=== PATIENT | female | born 1995 | race Caucasian/White ===

== ENCOUNTER 2023-05-12 14:07 | Emergency (ER) | payer SELFPAY ==
[2023-05-12 14:06] VITALS: BP 122/85; PULSE 96; RESP 14; TEMP 37.2; O2SAT 98
--- NOTE | 2023-05-12 15:00 | DI.CT_ITS ---
Exam(s) CT BRAIN NECK CTA EXAM: CT BRAIN NECK CTA CLINICAL HISTORY: Seizure, syncope. TECHNIQUE: Imaging Protocol: Axial CT angiography was performed with multi-slice acquisition and mu lti-planar and/or 3D reconstructions. CONTRAST MATERIAL: Intravenous: Omnipaque 350 Contrast volume:structured data in ml COMPARISON: No exams were available for comparison FINDINGS: CTA Neck W: Aortic arch anatomy: The aortic arch anatomy is conventional and there is no significant stenosis at the origin of the great vessels off of the aortic arch. No intimal flap evident. Anterior circulation: Both common carotid arteries ascend with normal luminal diameters. At the level the carotid bulbs and proximal internal carotid arteries there is minimal plaque without hemodynamically significant stenosis evident. Posterior circulation: Both vertebral arteries originate in conventional fashion off of the subclavian arteries and there is no obvious stenosis at the origin of the vertebral arteries. Both vertebral arteries exhibit normal luminal diameters within the foramen transversarium. No evidence of intraluminal thrombus, stenosis, nor dissection of the vertebral arteries. Both vertebral arteries contribute to the formation of the basilar artery at the skull base. CTA Brain W: Anterior circulation: Both internal carotid arteries are patent in the skull base-carotid canals as well as within the cave rnous sinuses. The supraclinoid aspects of the ICAs are patent. Both A1 segments are patent as are the anterior cer ebral arteries and there is no evidence of aneurysm at the level of the anterior communicating artery . Both middle cerebral arteries are patent with no evidence of significant stenosis nor intraluminal th rombus. There also no aneurysms of these vessels. Posterior circulation: The basilar artery ascends in the midline. Distally it gives off patent bilateral superior cerebella r arteries. Above this level the basilar artery terminates as patent bilateral posterior cerebral arteries. There is no evidence of aneurysm at the tip of the basilar artery nor elsewhere in the [id number] is. CT BRAIN: There is no evidence of intracranial hemorrhage, mass effect, or shift of midline structures. There are no extra-axial fluid collections. Ventricles are not enlarged or shifted. There are no ring enh ancing lesions in the brain and no abnormal meningeal enhancement. IMPRESSION: 1. Patent carotid arteries in the neck. No hemodynamically significant stenosis. 2. Patent vertebral arteries. 3. Patent intracranial arteries. 4. No acute intracranial findings. No ring enhancing lesions in the brain. No abnormal meningeal en hancement. RADIATION DOSE DELIVERED: 1,731.39mGy.cm Total DLP DATA REPOSITORY: All CT scans at this facility are submitted to the National Radiology Data Registry (NRDR) Dose Index Registry (DIR) with the [employer] (ACR). RADIATION OPTIMIZATION: All CT scans at this facility use at least one of these dose optimization te chniques: automated exposure control; mA and/or kV adjustment per patient size (includes targeted exa ms where dose is matched to clinical indication); or iterative reconstruction.
[2023-05-12 15:04] LABS: Bilirubin Negative (Negative); Blood Negative (Negative); Clarity Clear (Clear); Glucose Negative (Negative); Ketones >=160 mg/dL (Negative); Leukocyte Esterase Negative (Negative); Nitrite Negative (Negative); Specific Gravity >= 1.030 (1.005-1.025); Urobilinogen 0.2 mg/dL (Up to 0.2)
[2023-05-12 15:10] LABS: Bacteria Negative HPF (Negative); C & S Indicated? No; Casts Negative LPF (Negative); Crystals Negative HPF (Negative); Epithelial Cells Few HPF (Negative); Mucus Trace (Negative); RBC 0-2 HPF (0-2)
[2023-05-12 15:16] LABS: *AMPHETAMINES SCREEN URINE Positive (Negative); *BARBITURATES SCREEN URINE Negative (Negative); *BENZODIAZEPINES SCREEN URINE Negative (Negative); Cannabinoids THC Positive (Negative); Cocaine Screen,Urine Negative (Negative); METHADONE URINE SCREEN Negative (Negative); OPIATES URINE SCREEN Negative (Negative); Tricyclic Antidepressants Negative (Negative)
[2023-05-12 15:19] LABS: Lactate 1.3 mmol/L (0.6-1.4)
[2023-05-12 15:23] LABS: Abs Immature Grans 0.02 10^3/uL (0.0-0.06); Absolute Basophil Count 0.03 10^3/uL (0.0-0.2); Absolute Eosinophil Count 0.01 10^3/uL (0.0-0.7); Absolute Lymphocyte Count 2.18 10^3/uL (1.2-3.4); Absolute Monocyte Count 0.56 10^3/uL (0.1-0.8); Absolute Neutrophil Count 6.42 10^3/uL (1.2-6.7); Basophils % 0.3; Eosinophils % 0.1; HCT 35.9 % (36.0-46.0); HGB 12.8 g/dL (11.2-15.7); Immature Grans % 0.2; Lymphocytes % 23.6; MCHC 35.7 % (32.0-36.0); MCV 87 fL (80-95); Monocytes % 6.1; Neutrophils % 69.7; Platelet Count 339 10^3/uL (130-400); RBC 4.13 10^6/uL (3.93-5.22); RDW-SD 41.1 fL; WBC 9.22 10^3/uL (4.4-10.8)
[2023-05-12 15:27] VITALS: PULSE 97; RESP 13
[2023-05-12] MEDS: Lactated Ringers 1,000 ML 1000 ML IV (15:32)
[2023-05-12 15:34] LABS: INR 1.2 (0.9-1.1); PTT Activated 26.5 sec (23.6-32.8); Prothrombin Time 11.5 sec (9.1-11.1)
[2023-05-12 15:40] LABS: Ammonia 27 umol/L (11-32)
[2023-05-12] MEDS: Normal Saline - Diluent 50 ML VIAL IJ (15:48)
[2023-05-12] MEDS: Omnipaque 350 MG/ML 100 ML BTL IJ (15:49)
[2023-05-12 15:53] LABS: ALT 28 U/L (14-59); AST 34 U/L (15-37); Albumin 4.3 g/dL (3.4-5.0); Alkaline Phosphatase 44 U/L (46-116); Anion Gap 10.9 mmol/L (3-11); BUN 11 mg/dL (7-18); Bilirubin, Total 1.2 mg/dL (0.2-1.0); CO2 25.1 mmol/L (21.0-32.0); CREATININE 0.6 mg/dL (0.55-1.02); Calcium 9.3 mg/dL (8.5-10.1); Chloride 100 mmol/L (98-107); Estimated GFR 126.87 (mL/min/1.73m2); Glucose 95 mg/dL (74-106); Lipase 19 U/L (16-77); Magnesium 1.8 mg/dL (1.8-2.4); Potassium 3.5 mmol/L (3.5-5.1); Sodium 136 mmol/L (136-145); Total Protein 7.5 g/dL (6.4-8.2)
[2023-05-12 15:54] LABS: ETHANOL BLOOD < 3.0 mg/dL (<10)
[2023-05-12 16:00] VITALS: PULSE 98; RESP 11
[2023-05-12] MEDS: hydrOXYzine HCL 25 MG TAB PO (16:03)
--- NOTE | 2023-05-12 16:13 | DI.VRAD_ITS ---
PROCEDURE INFORMATION: Exam: CTA Head With Contrast, Arteriography Exam date and time: 05/12/2023 3:47 PM Age: 27 years old Clinical indication: Syncope and collapse and other: Seizure, TECHNIQUE: Imaging protocol: Computed tomographic angiography of the head with contrast. Exam focused on the arteries. 3D rendering (Not supervised by radiologist): MIP and/or 3D reconstructed images were created by the technologist. Contrast material: 350; Contrast volume: 100 ml; Contrast route: INTRAVENOUS (IV); COMPARISON: No relevant prior studies available. FINDINGS: ANTERIOR CIRCULATION: Right internal carotid artery: Intracranial segment is patent with no significant stenosis. No aneurysm. Right middle cerebral artery: No occlusion or significant stenosis. No aneurysm. Right anterior cerebral artery: No occlusion or significant stenosis. No aneurysm. Left internal carotid artery: Intracranial segment is patent with no significant stenosis. No aneurysm. Left middle cerebral artery: No occlusion or significant stenosis. No aneurysm. Left anterior cerebral artery: No occlusion or significant stenosis. No aneurysm. POSTERIOR CIRCULATION: Right vertebral artery: No occlusion or significant stenosis. No aneurysm. Left vertebral artery: No occlusion or significant stenosis. No aneurysm. Basilar artery: No occlusion or significant stenosis. No aneurysm. Right posterior cerebral artery: No occlusion or significant stenosis. No aneurysm. Left posterior cerebral artery: No occlusion or significant stenosis. No aneurysm. Brain: No definite mass, mass effect, or midline shift. Cerebral ventricles: No ventriculomegaly. Bones/joints: Unremarkable. No acute fracture. Soft tissues: Unremarkable. IMPRESSION: No large vessel stenosis or occlusion. PROCEDURE INFORMATION: Exam: CTA Neck With Contrast Exam date and time: 05/12/2023 3:47 PM Age: 27 years old Clinical indication: Syncope and collapse and other: Seizure, TECHNIQUE: Imaging protocol: Computed tomographic angiography of the neck with contrast. Exam focused on the cervical segments of the vasculature. 3D rendering (Not supervised by radiologist): MIP and/or 3D reconstructed images were created by the technologist. Contrast material: 350; Contrast volume: 100 ml; Contrast route: INTRAVENOUS (IV); COMPARISON: No relevant prior studies available. FINDINGS: Right common carotid artery: No stenosis. No dissection or occlusion. Right internal carotid artery: No stenosis of the extracranial segment. No dissection or occlusion. Right external carotid artery: No occlusion or stenosis of the origin. Left common carotid artery: No stenosis. No dissection or occlusion. Left internal carotid artery: No stenosis of the extracranial segment. No dissection or occlusion. Left external carotid artery: No occlusion or stenosis of the origin. Right vertebral artery: No stenosis. No dissection or occlusion. Left vertebral artery: No stenosis. No dissection or occlusion. Soft tissues: There is a 1.2 cm nodule in the posterior aspect of the right thyroid lobe. No significant soft tissue swelling. Bones/joints: No acute fracture. There is reversal of the cervical lordosis. IMPRESSION: 1. No stenosis or occlusion. 2. A 1.2 cm nodule in the posterior aspect the right thyroid lobe. Follow-up non-emergent thyroid ultrasound is recommended. REFERENCES: NASCET CRITERIA. The degree of stenosis in the cervical segment of the internal carotid artery is based on NASCET criteria. Normal is no stenosis. Mild is less than 50% stenosis. Moderate is 50-69% stenosis. Severe is 70% to 99% stenosis. Total occlusion is no detectable patent lumen. Dictated and Authenticated by: Francisco Javier Maya MD. Ordering:CHELLE Sumner MD
[2023-05-12 16:20] VITALS: O2SAT 100
--- NOTE | 2023-05-12 16:21 | ED.GENADUL_ITS ---
HPI General Mode of arrival: EMS . Date/Time Provider Initiated Documentation: 05/12/23 14:09 . Limitations to Documentation: no limitations . Information obtained by: patient, family and RN notes reviewed . History of Present Illness 27 year old F presents to the emergency department with the chief complaint of Seizure/syncope, described as moderate and similar to prior episodes, Patient started experiencing this hour(s) (1) and it has been now resolved. No relieving factors improve symptom(s), Other factors that worsen symptoms (Anxiety) . Patient notes no other symptoms.. Patient did receive the following treatments prior to arrival, none Related Data Home Medications Medication Instructions Recorded Confirmed clonazepam 0.5 mg tablet 0.5 mg PO TID 05/12/23 05/12/23 hydroxyzine HCl 25 mg tablet 25 mg PO TID PRN anxiety #20 tabs 05/12/23 Previous Rx's Medication Instructions Recorded hydroxyzine HCl 25 mg tablet 25 mg PO TID PRN anxiety #20 tabs 05/12/23 Allergies Allergy/AdvReac Type Severity Reaction Status Date / Time poison kriss extract AdvReac Unverified 05/12/23 14:15 General Stated Complaint: Seizure DEMETRI: 3 Review of Systems Constitutional Constitutional: Denies chills, Denies fever(s), Denies headache(s), Denies malaise and Denies poor appetite Eyes Eyes: Reports other visual disturbances ENT Ears, Nose, Mouth, and Throat: Denies vertigo, Denies dizziness, Denies otalgia, Denies headache(s), Denies neck pain and Denies sore throat Cardiovascular Cardiovascular: Denies chest pain, Denies syncope, Denies rapid heart rate and Denies dyspnea Respiratory Respiratory: Denies cough and Denies dyspnea Gastrointestinal Gastrointestinal: Denies fecal incontinence, Denies nausea and Denies vomiting Genitourinary Genitourinary: Denies urinary incontinence Musculoskeletal Musculoskeletal: Denies neck pain, Denies numbness and Denies tingling Integumentary/Breasts Skin/Breast: Denies rash Neurologic Neurologic: Reports as per HPI, Denies confusion, Denies vertigo, Denies dizziness, Denies syncope, Denies headache(s), Denies numbness, Reports convulsions and Denies tingling Psychiatric Psychiatric: Denies confusion Exam Const General: cooperative, healthy appearing, no acute distress, well groomed and anxious Orientation: alert, awake and oriented x3 HENMT Head: normal to inspection Ears: hearing grossly normal bilaterally and TM's normal bilaterally Mouth: oral mucosae normal and moist mucous membranes Throat: posterior oropharynx normal Eyes Visual Martin: normal visual martin by confrontation Alignment and Position: alignment normal Periorbital: periorbital findings normal Eyelids: eyelids normal Sclera: sclerae normal Cornea: corneas normal Pupils: PERRL EOM: EOM intact bilaterally Neck Neck: normal visual inspection, full ROM, no lymphadenopathy and no meningeal signs Resp Effort & Inspection: normal respiratory effort and able to speak in complete sentences Auscultation: clear to auscultation bilaterally Cardio Rate: regular rate Rhythm: regular rhythm Heart Sounds: S1 normal and S2 normal Neuro General: patient alert, patient awake, patient oriented x3, gait normal, tone normal, moves all extremities, CN's II-XI intact bilaterally and not confused Cognition: normal cognition Speech: speech normal Motor: muscle tone normal throughout, strength 5/5 throughout, no pronator drift, no movement abnormalities noted and no fasciculations Sensory Exam: no sensory deficits noted Coordination: [id number] test normal, Romberg test normal, Does not sway with eyes open, rapid alternating movement UE normal and rapid alternating movement LE normal Psych Mental Status: mental status grossly normal Speech and Movement: agitated Mood: anxious mood Affect: anxious affect Attitude: cooperative and guarded Thought Content: normal Course Vital Signs Vital signs: Vital Signs Temperature 37.2 C 05/12/23 14:06 Pulse 96 H 05/12/23 14:06 Respiratory Rate 14 05/12/23 14:06 Blood Pressure 122/85 05/12/23 14:06 Pulse Oximetry 98 05/12/23 14:06 Temperature 37.2 C 05/12/23 14:06 Temperature Source Skin 05/12/23 14:06 Pulse 96 H 05/12/23 14:06 Pulse 97 H 05/12/23 15:27 Respiratory Rate 13 05/12/23 15:27 Respiratory Effort Normal, Non-Labored 05/12/23 14:45 Respiratory Depth Normal 05/12/23 14:45 Respiratory Pattern Normal 05/12/23 14:45 Blood Pressure 122/85 05/12/23 14:06 Blood Pressure Position Sitting 05/12/23 14:06 Pulse Oximetry 98 05/12/23 14:06 Oxygen Delivery Method Room Air 05/12/23 14:06 Oxygen Flow Rate 0 05/12/23 14:06 Pain Level 0 05/12/23 14:06 Lab/Test Results Lab/Test Results: Laboratory Tests Range/Units 05/12/23 05/12/23 05/12/23 14:35 15:11 15:17 WBC (4.4-10.8) 10^3/uL 9.22 RBC (3.93-5.22) 10^6/uL 4.13 Hgb (11.2-15.7) g/dL 12.8 Hct (36.0-46.0) % 35.9 L MCV (80-95) fL 87 MCH (27.0-33.0) pg 31.0 MCHC (32.0-36.0) % 35.7 RDW (11.7-14.6) % 13.0 Plt Count (130-400) 10^3/uL 339 MPV (8.0-11.0) fL 10.0 Immature Gran % 0.2 Neutrophils % 69.7 Lymphocytes % 23.6 Monocytes % 6.1 Eosinophils % 0.1 Basophils % 0.3 Nucleated RBC % (0.0-0.3) % 0.0 Absolute Neutrophils (1.2-6.7) 10^3/uL 6.42 Absolute Lymphocytes (1.2-3.4) 10^3/uL 2.18 Absolute Monocytes (0.1-0.8) 10^3/uL 0.56 Absolute Eosinophils (0.0-0.7) 10^3/uL 0.01 Absolute Basophils (0.0-0.2) 10^3/uL 0.03 PT (9.1-11.1) sec 11.5 H INR (0.9-1.1) 1.2 H APTT (23.6-32.8) sec 26.5 VBG Lactate (0.6-1.4) mmol/L 1.3 Sodium (136-145) mmol/L 136 Potassium (3.5-5.1) mmol/L 3.5 Chloride (98-107) mmol/L 100 Carbon Dioxide (21.0-32.0) mmol/L 25.1 Anion Gap (3-11) mmol/L 10.9 BUN (7-18) mg/dL 11 Creatinine (0.55-1.02) mg/dL 0.6 Est GFR (CKD-EPI 2020) (mL/min/1.73m2) 126.87 Glucose (74-106) mg/dL 95 Calcium (8.5-10.1) mg/dL 9.3 Magnesium (1.8-2.4) mg/dL 1.8 Total Bilirubin (0.2-1.0) mg/dL 1.2 H AST (15-37) U/L 34 ALT (14-59) U/L 28 Alkaline Phosphatase (46-116) U/L 44 L Ammonia (11-32) umol/L 27 Total Protein (6.4-8.2) g/dL 7.5 Albumin (3.4-5.0) g/dL 4.3 Lipase (16-77) U/L 19 TSH (0.36-3.74) uIU/mL 2.30 Urine Color (Yellow) Yellow Urine Clarity (Clear) Clear Urine pH (5-8) 6.0 Ur Specific [place] (1.005-1.025) >= 1.030 H Urine Protein (Negative) mg/dL 100 H Urine Ketones (Negative) mg/dL >=160 H Urine Blood (Negative) Negative Urine Nitrite (Negative) Negative Urine Bilirubin (Negative) Negative Urine Urobilinogen (Up to 0.2) mg/dL 0.2 Ur Leukocyte Esterase (Negative) Negative Urine RBC (0-2) HPF 0-2 Urine WBC (0-5) HPF 3-5 Ur Epithelial Cells (Negative) HPF Few Urine Crystals (Negative) HPF Negative Urine Bacteria (Negative) HPF Negative Urine Casts (Negative) LPF Negative Urine Mucus (Negative) Trace Ur Culture Indicated? No Urine Glucose (Negative) mg/dL Negative Urine Opiates Screen (Negative) Negative Urine Methadone Screen (Negative) Negative Ur Barbiturates Screen (Negative) Negative Ur Tricyclics Screen (Negative) Negative Ur Amphetamines Screen (Negative) Positive A U Benzodiazepines Scrn (Negative) Negative Urine Cocaine Screen (Negative) Negative Ur THC Screen (Negative) Positive A Ethyl Alcohol (<10) mg/dL < 3.0 POC- Test(urine) Negative Medical Decision Making Patient presenting to the emergency department for chief complaint of syncopal episode versus seizure. Patient's significant other states they were riding in the truck coming home from [employer] when she started shaking and seemingly passed out. He stated he did not feel it look like a seizure but might have been. He did not get a video recording of this. Patient does report that she was a heavy drinker but stopped drinking 3 to 4 months ago and did have some drinks last night but nothing today, does use Adderall that she gets off the street but only takes 1 pill a day. Patient does occasionally do marijuana and smokes cigarettes/vapes daily. Does have significant past medical history of anxiety. Patient states that during the episode today that she saw some visual changes/lights and lost vision temporarily but could feel her self shaking and her significant other calling her name. She does state 1 episode of syncope prior which felt similar. Patient denies any recent illness, head injury, denies all other symptoms. Physical exam shows an anxious appearing female with no focal neurological deficits or findings on exam, otherwise normal noncontributory exam. Given reported story we will check patient's labs, urine, , urine drug screen, and CT imaging of head. Reviewed patient's labs and CBC is overall unremarkable, lactate is 1.3/WNR, CMP shows slightly elevated total bilirubin at 1.2 otherwise nondiagnostic CMP, lipase is within normal range, ammonia within normal range, TSH of 2.3, urinalysis does show high specific gravity protein and ketones otherwise no other worrisome findings noted, patient is not . UDS does show amphetamines and THC otherwise is negative. Patient negative alcohol. Patient given 1 L of LR. Given patient's description of the event, normal labs, and specifically within normal range lactate I question if this was more of an anxiety reaction versus seizure. Will also give patient hydroxyzine to see if this helps with her anxiety level. Reviewed CTA imaging of head and neck which showed no emergent findings. There was an incidental finding of a thyroid nodule which patient was informed of and told that she needed to follow-up with primary care provider but I do not feel this is contributing to patient's emergent symptoms. Did reassess patient after fluids were completed and patient did state overall improvement of symptoms. Was able to verify that patient had been on clonazepam but stopped 3 months ago and has not been taking this medication recently. I do question if this was more of a panic reaction with syncope as I have lower suspicion of seizure. Do not feel that it would be beneficial to start patient on seizure meds at this time but will have patient follow-up with primary care provider when she gets home as she is not from this area but informed both patient and significant other who is willing to watch her to have a low threshold to return to the emergency department for any new or worsening symptoms. After discussion of diagnosis and plan of care patient and significant other has no further needs, questions, or concerns and states clear understanding to return to the emergency department for any worsening symptoms. This documentation was generated using [employer] system, please disregard any oddities of phrase or misspellings. Imaging Data Radiologic Study: Imaging: CT Scan Radiologist's impression: Exam(s) PROCEDURE INFORMATION: Exam: CTA Head With Contrast, Arteriography Exam date and time: 05/12/2023 3:47 PM Age: 27 years old Clinical indication: Syncope and collapse and other: Seizure, TECHNIQUE: Imaging protocol: Computed tomographic angiography of the head with contrast. Exam focused on the arteries. 3D rendering (Not supervised by radiologist): MIP and/or 3D reconstructed images were created by the technologist. Contrast material: 350; Contrast volume: 100 ml; Contrast route: INTRAVENOUS (IV); COMPARISON: No relevant prior studies available. FINDINGS: ANTERIOR CIRCULATION: Right internal carotid artery: Intracranial segment is patent with no significant stenosis. No aneurysm. Right middle cerebral artery: No occlusion or significant stenosis. No aneurysm. Right anterior cerebral artery: No occlusion or significant stenosis. No aneurysm. Left internal carotid artery: Intracranial segment is patent with no significant stenosis. No aneurysm. Left middle cerebral artery: No occlusion or significant stenosis. No aneurysm. Left anterior cerebral artery: No occlusion or significant stenosis. No aneurysm. POSTERIOR CIRCULATION: Right vertebral artery: No occlusion or significant stenosis. No aneurysm. Left vertebral artery: No occlusion or significant stenosis. No aneurysm. Basilar artery: No occlusion or significant stenosis. No aneurysm. Right posterior cerebral artery: No occlusion or significant stenosis. No aneurysm. Left posterior cerebral artery: No occlusion or significant stenosis. No aneurysm. Brain: No definite mass, mass effect, or midline shift. Cerebral ventricles: No ventriculomegaly. Bones/joints: Unremarkable. No acute fracture. Soft tissues: Unremarkable. IMPRESSION: No large vessel stenosis or occlusion. PROCEDURE INFORMATION: Exam: CTA Neck With Contrast Exam date and time: 05/12/2023 3:47 PM Age: 27 years old Clinical indication: Syncope and collapse and other: Seizure, TECHNIQUE: Imaging protocol: Computed tomographic angiography of the neck with contrast. Exam focused on the cervical segments of the vasculature. 3D rendering (Not supervised by radiologist): MIP and/or 3D reconstructed images were created by the technologist. Contrast material: 350; Contrast volume: 100 ml; Contrast route: INTRAVENOUS (IV); COMPARISON: No relevant prior studies available. FINDINGS: Right common carotid artery: No stenosis. No dissection or occlusion. Right internal carotid artery: No stenosis of the extracranial segment. No dissection or occlusion. Right external carotid artery: No occlusion or stenosis of the origin. Left common carotid artery: No stenosis. No dissection or occlusion. Left internal carotid artery: No stenosis of the extracranial segment. No dissection or occlusion. Left external carotid artery: No occlusion or stenosis of the origin. Right vertebral artery: No stenosis. No dissection or occlusion. Left vertebral artery: No stenosis. No dissection or occlusion. Soft tissues: There is a 1.2 cm nodule in the posterior aspect of the right thyroid lobe. No significant soft tissue swelling. Bones/joints: No acute fracture. There is reversal of the cervical lordosis. IMPRESSION: 1. No stenosis or occlusion. 2. A 1.2 cm nodule in the posterior aspect the right thyroid lobe. Lab Data Lab results reviewed: Yes I reviewed the patient's lab results. Quality:SDOH Health Related Social Needs: No Data to Display PFSH All Active Problems (Updated 05/12/23 @ 16:26 by Burak Castro NP) Panic reaction (Acute) Syncope (Chronic) Social History Smoking/Tobacco Use Status: Current every day Tobacco Type: e-cigarettes Smoking risk assessment performed?: Yes Alcohol Intake: current Alcohol Intake frequency: other Alcohol type: hard liquor and other Drug use: Daily Substance use type: marijuana and prescription drug Details: Pt states she uses marijuana to help her sleep and pt is prescribed Adderall. Pt states she had two mixed drinks last night and two shots of vodka (05/11/23). Pt states she also vapes Do you feel safe at home: Yes Do you feel safe in your relationship?: Yes Discharge Plan Disposition Patient Disposition: Home Discharge Details Clinical Impression: Syncope, Panic reaction Primary Care Provider: Unknown,Unknown ED Provider: Burak Castro Home Meds and New Rx's Prescriptions: New hydroxyzine HCl 25 mg tablet 25 mg PO TID PRN (Reason: anxiety) Qty: 20 0RF Continued clonazepam 0.5 mg tablet 0.5 mg PO TID Discharge Instructions Instructions: Syncope (ED), Anxiety (ED) Additional Instructions: It is very important that you follow-up with your primary care provider as you may need further outpatient testing. At this time I have a lower suspicion that this was seizure-like activity and question possible severe anxiety/panic reaction with passing out which we call syncope. Please have family members or loved ones continue to monitor you over the next 48 hours and have a low threshold to return the emergency department for any new or significant worsening of your condition. Some of your symptoms may be caused by Taking Adderall which is a stimulant and can cause lower threshold for these type of reactions. It is recommended that you stop usage of all controlled or illicit substances and follow-up with your primary care provider. Also discussed with your primary care provider thyroid nodule that was noted on your CT scan as they may want to do further testing. Again return to the closest emergency department for any new or significant worsening of your condition Stand Alone Forms: Work Release Referrals: Primary Care Provider [Outside] - 1 week Discharge Data Discharge Date/Time-TO BE ENTERED AT DEPARTURE: 05/12/23 16:52
[2023-05-12 16:30] VITALS: O2SAT 100
--- OUTSIDE RECORDS SUMMARY | 2023-05-12 16:46 | XMS_ITS | Continuity of Care Document ---
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 instructions. [Electronically Signed on: 03/20/2023 15:40 EST] Helen Osborn MD, MD [Verified on: 03/20/2023 15:40 EST] Helen Osborn MD, MD Immunization summary report * Vidya Gomez N: PERFORM Event Display: Immunization Record Authored Date: Patient Care team information Care Team Personnel Name: MYA LAWSON Position: [facility] PC View Only Member Role: Informed Provider Address: Address: [facility] [address] Name: Helen Osborn MD Position: [facility] ED Physician LP Member Role: Attending Physician Name: Coty Gaffney RN Position: [facility] RN PCSC Member Role: Registered Nurse Care Team Related Persons Name: SHADYDIVINEPORSHA Kramer Address: [address] [place], [place] [id number] Name: JOSE MIGUEL MALLORY Name: MARTHA POOL Name: MARTHA POOL Address: [address] [id number]
--- OUTSIDE RECORDS SUMMARY | 2023-05-12 16:46 | XMS_ITS | Continuity of Care Document ---
Author Name Unknown Organization [facility] Address [address] [place] [id number] Care Team Providers Care Machine Design Checker Name Role Phone [place] Primary Care Physician U ivánailrodo Encounter BVT Date(s): 01/13/19 - 01/13/[address] [id number]- Encounter Diagnosis Pleurisy without effusion(Discharge Diagnosis) - 01/13/19 History of recent pneumonia(Discharge Diagnosis) - 01/13/19 Discharge Disposition: Home or Self Care Attending Physician: SUSANNE CASTELLON Admitting Physician: SUSANNE CASTELLON Allergies, Adverse Reactions, Alerts Substance Reaction Severity Status poison kriss Active amitriptyline Active Assessment and Plan Future Appointments Immunizations Given and Recorded Vaccine Date Status Refusal Reason HPV 11/11/13 Recorded HPV 7/8/13 Recorded HPV /8/13 Recorded Tdap 09/02/09 Recorded Medications 10 cc Syringe 10 cc Syringe, See Instructions, Use for Preparing Pizarro Compound, # 24 EA, 3 Refill(s), Pharmacy: [facility], Use for Preparing Pizarro Compound, Supply Start Date: 02/22/17 Status: Ordered 10 FR Cure Catheter Silicone Urethral 10 FR Cure Catheter Silicone Urethral, See Instructions, Use for Preparing Pizarro Compound, # 12 EA, 3 Refill(s), Pharmacy: [facility], Use for Preparing Pizarro Compound, Supply Start Date: 04/11/18 Status: Ordered 18 gauge 1 1/2 needle 18 gauge 1 1/2 needle, See Instructions, Use for Preparing Pizarro Compound, # 24 EA, 3 Refill(s),Pharmacy: [facility], Use for Preparing Pizarro Compound, Supply Start Date: 02/22/17 Status: Ordered 60cc Catheter Tip Syringe 60cc Catheter Tip Syringe, See Instructions, Use for Preparing Pizarro Compound, # 12 EA, 3 Refill(s), Pharmacy: [facility], Use for Preparing Pizarro Compound, Supply Start Date: 02/22/17 Status: Ordered acetaminophen 500 mg oral tablet 1,000 mg = 2 tab(s), Oral, QID, X 7 day(s), # 60 tab(s), 0 Refill(s), 01/20/19 Start Date: 01/13/19 Stop Date: 01/20/19 Status: Ordered albuterol 90 mcg/inh inhalation aerosol = 2 puff(s), INH, q4hr, PRN PRN for wheezing, # 6.7 gm, 0 Refill(s), 01/15/19 Start Date: 01/05/19 Stop Date: 01/15/19 Status: Ordered benzonatate 100 mg oral capsule 100 mg = 1 cap(s), Oral, TID, X 7 day(s), # 21 cap(s), 0 Refill(s), 01/14/19, Pharmacy: [id number] #, 1 cap(s) Oral TID,x7 day(s) Start Date: 01/07/19 Stop Date: 01/14/19 Status: Ordered clonazePAM 0.5 mg oral tablet mg tab(s), Oral, TID, 0 Refill(s) Start Date: 09/09/16 Status: Ordered cyclobenzaprine 5 mg oral tablet 5 mg = 1 tab(s), Oral, TID, X 7 day(s), # 21 tab(s), 0 Refill(s), 01/14/19, Pharmacy: [id number] #, pt is not actively taking hyophen and she has been contacted and agrees to not take medications together, 1 tab(s) Oral TID,x7 day(s) Start Date: 01/07/19 Stop Date: 01/14/19 Status: Ordered Elmiron 100 mg oral capsule 100 mg = 1 cap(s), Oral, TID, # 90 cap(s), 6 Refill(s), Pharmacy: [facility], 1 cap(s) Oral TID Start Date: 04/11/18 Status: Ordered hydrOXYzine hydrochloride 10 mg oral tablet See Instructions, take 1 tablet by oral route once a day (at bedtime) for 30 days, # 30 tab(s), Refill(s) 5, take 1 tablet by oral route once a day (at bedtime) for 30 days Start Date: 09/06/17 Status: Ordered Hyophen oral tablet 1 tab(s), Oral, QID, # 120, 11 Refill(s) Start Date: 02/06/17 Status: Ordered ibuprofen 600 mg oral tablet 600 mg = 1 tab(s), Oral, q6hr, X 7 day(s), # 30 tab(s), 0 Refill(s), 01/20/19 Start Date: 01/13/19 Stop Date: 01/20/19 Status: Ordered lidocaine 2% injectable solution See Instructions, Use 8cc when preparing Pizarro Compound, # 200 mL, 3 Refill(s), Pharmacy: [facility], Use 8cc when preparing Pizarro Compound Start Date: 02/22/17 Status: Ordered Lidocaine Urojet - lidocaine hydrochloride jelly 2% 200mg (20mg/ml) Lidocaine Urojet - lidocaine hydrochloride jelly 2% 200mg (20mg/ml), See Instructions, use as instructed prior to Pizarro installation, # 25 EA, 0 Refill(s), [facility]: [id number] [facility], use as instructed prior to Pizarro installation, Kirk... Start Date: 04/18/18 Status: Ordered Mirena EA, Intrauteral, Once, 0 Refill(s) Start Date: 09/09/16 Status: Ordered sodium bicarbonate 8.4% intravenous solution See Instructions, Use 4 cc when preparing Pizarro Compound, # 50 mL, 3 Refill(s), Pharmacy: [facility], Use 4 cc when preparing Pizarro Compound Start Date: 02/22/17 Status: Ordered Sterile Specimen Cup Sterile Specimen Cup, See Instructions, Use for Preparing Pizarro Compound, # 12 EA, 3 Refill(s), Pharmacy: [facility], Use for Preparing Pizarro Compound, Supply Start Date: 02/22/17 Status: Ordered sterile water irrigation solution See Instructions, Use 18 cc when preparing Pizarro Compound, # 1,000 mL, 6 Refill(s), Pharmacy: [facility], Use 18 cc when preparing Pizarro Compound Start Date: 02/22/17 Status: Ordered Suboxone 12 mg-3 mg sublingual film Sublingual, Daily, 0 Refill(s) Start Date: 01/05/19 Status: Ordered Mental Status 01/13/19 Level of Consciousness Alert Problem List Condition Effective Dates Status Health Status Inform ant Abdominal pain(Confirmed) Active Acute UTI(Confirmed) Active Anxiety(Confirmed) Active Asthma(Confirmed) Active Bacteriuria(Confirmed) Active IC (interstitial cystitis)(Confirmed) Active Chronic pain(Confirmed) Active Acute costochondritis(Confirmed) Active Gross hematuria(Confirmed) Active Overactive bladder(Confirmed) Active Irregular bleeding(Confirmed) Active Depression(Confirmed) Active Female pelvic pain(Confirmed) Active Panic disorder without agoraphobia(Confirmed) Active Pneumonia(Confirmed) Active Pyuria(Confirmed) Active Severe anxiety(Confirmed) Active Insomnia(Confirmed) Active Substance use disorder(Confirmed) Active Urinary hesitancy(Confirmed) Active Vaginal discharge(Confirmed) Active Procedures Procedure Date Related Diagnosis Body Site Status None Completed Results Laboratory List Name Date Automated Differential Standard 01/13/19 Basic Metabolic Panel Standard (BMP Alejandro dard) 01/13/19 CBC w/Diff Standard 01/13/19 Most recent to oldest [Reference Range]: 1 NRBC Auto Pct [0.00-0.20 %] 0.00 % (01/13/19 11:35 AM) Creatinine [0.50-0.90 mg/dL] 0.45 mg/dL *LOW* (01/13/19 11:35 AM) AGAP [10.0-18.0 mmol/L] 12.4 mmol/L (01/13/19 11:35 AM) Glucose Lvl [70-100 mg/dL] 94 mg/dL (01/13/19 11:35 AM) Hct [34.1-44.9 %] 38.6 % (01/13/19 11:35 AM) Hgb [11.5-15.7 gm/dL] 12.9 gm/dL (01/13/19 11:35 AM) Lymph Auto [15.0-45.0 %] 43.2 % (01/13/19 11:35 AM) MCH [25.6-32.2 pg] 30.2 pg (01/13/1935 AM) MCHC [32.3-36.5 gm/dL] 33.4 gm/dL (01/13/1935 AM) MCV [79.4-94.8 fL] 90.4 fL (01/13/1935 AM) [place] Auto [4.0-14.0 %] 4.2 % (01/13/1935 AM) MPV [9.4-12.4 fL] 9.0 fL *LOW* (01/13/1935 AM) Neutro Auto [50.0-75.0 %] 50.0 % (01/13/1935 AM) Osmolality [268.0-291.0 mOsm/kg] 275.9 m Osm/kg (01/13/1935 AM) Platelet [150-400 x10(3)/uL] 475 x10(3)/ uL *HI* (01/13/1935 AM) RBC [3.93-5.22 x10(6)/uL] 4.27 x10(6)/uL (01/13/1935 AM) Sodium Lvl [136-145 mmol/L] 138 mmol/L (01/13/1935 AM) Basophil Auto [0.0-2.0 %] 0.7 % (01/13/1935 AM) CO2 [22-29 mmol/L] 29 mmol/L (01/13/1935 AM) Eos Auto [0.0-8.0 %] 1.7 % (01/13/1935 AM) WBC [4.0-10.0 x10(3)/uL] 5.9 x10(3)/uL (01/13/1935 AM) BUN [6-23 mg/dL] 14 mg/dL (01/13/1935 AM) Calcium Lvl [8.6-10.2 mg/dL] 9.3 mg/dL (01/13/1935 AM) Chloride [98-107 mmol/L] 101 mmol/L (01/13/1935 AM) Potassium Lvl [3.5-5.1 mmol/L] 4.4 mmol/ L (01/13/19 11:35 AM) Lymph Absolute [1.20-3.70 x10(3)/uL] 2.5 6 x10(3)/uL (01/13/19 11:35 AM) [place] Absolute [0.20-0.40 x10(3)/uL] 0.25 x10(3)/uL (01/13/19 11:35 AM) Eos Absolute [0.04-0.54 x10(3)/uL] 0.10 x10(3)/uL (01/13/19 11:35 AM) NRBC Absolute [0.00-0.01 x10(3)/uL] 0.00 x10(3)/uL (01/13/19 11:35 AM) Neutro Absolute [1.56-6.13 x10(3)/uL] 2. 96 x10(3)/uL (01/13/19 11:35 AM) RDW-CV [11.7-14.4 %] 13.0 % (01/13/19 11:35 AM) GFR >60 mL/min/1.73 m2 *NA* (01/13/19 11:35 AM) GFR NonAfrican [place] >60 mL/min/1.73 m2 *NA* (01/13/19 11:35 AM) Immature Gran % [0.00-2.30 %] 0.20 % (01/13/19 11:35 AM) Immature Gran Absolute 0.01 x10(3)/uL *NA* (01/13/19 11:35 AM) Basophil Absolute [0.00-0.10 x10(3)/uL] 0.04 x10(3)/uL (01/13/19 11:35 AM) Radiology Reports * Exam Date Time Procedure Performing Provider Status 01/13/19 11:19 AM XR Chest 2 Views Ann Alford; Orly th (Verified) Notes: (XR Chest 2 Views) Reason For Exam: recent multilobar PNA, ongoing cough and pleuritic cp XR Chest 2 Views EXAMINATION: XR Chest 2 Views CLINICAL HISTORY: recent multilobar PNA, ongoing cough and pleuritic cp FINDINGS: PA and lateral views of the chest were obtained and compared to the prior examination of 01/05/2019. The lung martin are clear with no evidence for infiltrate or mass. No atelectasis is seen. No pleural effusion is seen. The cardiomediastinal silhouette is within normal limits. IMPRESSION: No evidence for active cardiopulmonary disease. Thank you for letting us participate in the care of this patient. For questions regarding this report, please contact the number below. Electronically signed by: Nehemias Goode [facility] ([phone]), at 01/13/2019 11:22AM Final Dictated: 01/13/2019 11:22 am NEHEMIAS GOODE Signed (Electronic Signature): 01/13/2019 11:22 am Signed by: NEHEMIAS GOODE Vital Signs Most recent to oldest [Reference Range]: 1 2 Temperature Temporal [36.3-37.8 DegC] 37 .3 DegC (01/13/19 10:09 AM) Peripheral Pulse Rate [60-100 bpm] 65 bp m (01/13/19 12:33 PM) 98 bpm (01/13/19 10:09 AM) Respiratory Rate [14-20 br/min] 16 br/mi n (01/13/19 12:33 PM) 18 br/min (01/13/19 10:09 AM) Blood Pressure [90-140/60-90 mmHg] 115/7 8mmHg (01/13/19 12:33 PM) 100/64mmHg (01/13/19 10:09 AM) SpO2 [92-100 %] 100 % (01/13/19 12:33 PM) 98 % (01/13/19 10:09 AM) Height/Length Estimated 168.000 cm (01/13/19 10:09 AM) Height/Length Dosing 168.000 cm (01/13/19 10:13 AM) Weight Estimated 54.000 kg (01/13/19 12:33 PM) 54.000 kg (01/13/19 10:09 AM) Weight Dosing 54.000 kg (01/13/19 10:13 AM) Social History Social History Type Response Smoking Status 4 or less cigarettes (less than 1/4 pack)/day in last 30 days; Tobacco use per day: 0.25 PPD; entered on: 02/26/18 Sex Female 1did not smoke while Hospital Discharge Instructions Patient Education 01/13/2019 12:25:00 Community-Acquired Pneumonia, Adult Community-Acquired Pneumonia, Adult Pneumonia is an infection of the lungs. There are different types of pneumonia. One type can develop while a person is in a hospital. A different type, called community-acquired pneumonia, develops in people who are not, or have not recently been, in the hospital or other health care facility. What are the causes? Pneumonia may be caused by bacteria, viruses, or funguses. Community-acquired pneumonia is often caused by Streptococcus pneumonia bacteria. These bacteria are often passed from one person to anotherby breathing in droplets from the cough or sneeze of an infected person. What increases the risk? The condition is more likely to develop in: ??? People who have??chronic diseases, such as chronic obstructive pulmonary disease (COPD), asthma, congestive heart failure, cystic fibrosis, diabetes, or kidney disease. ??? People who have??early-stage or late-stage HIV. ??? People who have??sickle cell disease. ??? People who have??had their spleen removed (splenectomy). ??? People who have??poor dental hygiene. ??? People who have??medical conditions that increase the risk of breathing in (aspirating) secretions their own mouth and nose. ??? People who have??a weakened immune system (immunocompromised). ??? People who smoke. ??? People who??travel to areas where pneumonia-causing germs commonly exist. ??? People who??are around animal habitats or animals that have pneumonia- causing germs, including birds, bats, rabbits, cats, and farm animals. What are the signs or symptoms? Symptoms of this condition include: ??? A??dry cough. ??? A wet (productive) cough. ??? Fever. ??? Sweating. ??? Chest pain, especially when breathing deeply or coughing. ??? Rapid breathing or difficulty breathing. ??? Shortness of breath. ??? Shaking chills. ??? Fatigue. ??? Muscle aches. How is this diagnosed? Your health care provider will take a medical history and perform a physical exam. You may also have other tests, including: ??? Imaging studies of your chest, including X-rays. ??? Tests to check your blood oxygen level and other blood gases. ??? Other tests on blood, mucus (sputum), fluid around your lungs (pleural fluid), and urine. If your pneumonia is severe, other tests may be done to identify the specific cause of your illness. How is this treated? The type of treatment that you receive depends on many factors, such as the cause of your pneumonia, the medicines you take, and other medical conditions that you have. For most adults, treatment andrecovery from pneumonia may occur at home. In some cases, treatment must happen in a hospital. Treatment may include: ??? Antibiotic medicines, if the pneumonia was caused by bacteria. ??? Antiviral medicines, if the pneumonia was caused by a virus. ??? Medicines that are given by mouth or through an IV tube. ??? Oxygen. ??? Respiratory therapy. Although rare, treating severe pneumonia may include: ??? Mechanical ventilation. This is done if you are not breathing well on your own and you cannot maintain a safe blood oxygen level. ??? Thoracentesis. This procedure??removes fluid around one lung or both lungs to help you breathe better. Follow these instructions at home: ??? Take [id number] and prescription medicines only as told by your health care provider. ??? Only take??cough medicine if you are losing sleep. Understand that cough medicine can prevent your body???s natural ability to remove mucus from your lungs. ??? If you were prescribed an antibiotic medicine, take it as told by your health care provider. Donot stop taking the antibiotic even if you start to feel better. ??? Sleep in a semi-upright position at night. Try sleeping in a reclining chair, or place a few pillows under your head. ??? Do not use tobacco products, including cigarettes, chewing tobacco, and e- cigarettes. If you need help quitting, ask your health care provider. ??? Drink enough water to keep your urine clear or pale yellow. This will help to thin out mucus secretions in your lungs. How is this prevented? There are ways that you can decrease your risk of developing community-acquired pneumonia. Considergetting a pneumococcal vaccine if: ??? You are older than 65 years of age. ??? You are older than 19 years of age and are undergoing cancer treatment, have chronic lung disease, or have other medical conditions that affect your immune system. Ask your health care provider if this applies to you. There are different types and schedules of pneumococcal vaccines. Ask your health care provider which vaccination option is best for you. You may also prevent community-acquired pneumonia if you take these actions: ??? Get an influenza vaccine every year. Ask your health care provider which type of influenza vaccine is best for you. ??? Go to the dentist on a regular basis. ??? Wash your hands often. Use hand risk consultant if soap and water are not available. Contact a health care provider if: ??? You have a fever. ??? You are losing sleep because you cannot control your cough with cough medicine. Get help right away if: ??? You have worsening shortness of breath. ??? You have increased chest pain. ??? Your sickness becomes worse, especially if you are an older adult or have a weakened immune system. ??? You cough up blood. This information is not intended to replace advice given to you by your health care provider. Make sure you discuss any questions you have with your health care provider. Document Released: 03/25/2006 Document Revised: 12/12/2017 Document Reviewed: 07/20/2015 [employer] Interactive Patient Education ?? 2019 [employer]. 01/13/2019 12:25:00 Pleurisy Pleurisy Pleurisy, also called pleuritis, is irritation and swelling (inflammation) of the linings of the lungs. The linings of the lungs are called pleura. They cover the outside of the lungs and the inside of the chest wall. There is a small amount of fluid (pleural fluid) between the pleura that allows the lungs to move in and out smoothly when you breathe. Pleurisy causes the pleura to be rough and dry and to rub together when you breathe, which is painful. In some cases, pleurisy can cause pleural fluid to build up between the pleura (pleural effusion). What are the causes? Common causes of this condition include: ??? A lung infection caused by bacteria or a virus. ??? A blood clot that travels to the lung (pulmonary embolism). ??? Air leaking into the pleural space (pneumothorax). ??? Lung cancer or a lung tumor. ??? A chest injury. ??? Diseases that can cause lung inflammation. These include rheumatoid arthritis, lupus, sickle cell disease, inflammatory bowel disease, and pancreatitis. ??? Heart or chest surgery. ??? Lung damage from inhaling asbestos. ??? A lung reaction to certain medicines. Sometimes the cause is unknown. What are the signs or symptoms? Chest pain is the main symptom of this condition. The pain is usually on one side. Chest pain may start suddenly and be sharp or stabbing. It may become a constant dull ache. You may also feel pain in your back or shoulder. The pain may get worse when you cough, take deep breaths, or make sudden movements. Other symptoms may include: ??? Shortness of breath. ??? Noisy breathing (wheezing). ??? Cough. ??? Chills. ??? Fever. How is this diagnosed? This condition may be diagnosed based on: ??? Your medical history. ??? Your symptoms. ??? A physical exam. Your health care provider will listen to your breathing with a stethoscope to check for a rough, rubbing sound (friction rub). If you have pleural effusion, your breathing soundsmay be muffled. ??? Tests, such as: ??? Blood tests to check for infections or diseases and to measure the oxygen in your blood. ??? Imaging studies of your lungs. These may include a chest X-ray, ultrasound, MRI, or CT scan. ??? A procedure to remove pleural fluid with a needle for testing (thoracentesis). How is this treated? Treatment for this condition depends on the cause. Pleurisy that was caused by a virus usually clears up within 2 weeks. Treatment for pleurisy may include: ??? NSAIDs to help relieve pain and swelling. ??? Antibiotic medicines, if your condition was caused by a bacterial infection. ??? Prescription pain or cough medicine. ??? Medicines to dissolve a blood clot, if your condition was caused by pulmonary embolism. ??? Removal of pleural fluid or air. Follow these instructions at home: Medicines ??? Take fomv-fos-lgiohuu and prescription medicines only as told by your health care provider. ??? If you were prescribed an antibiotic, take it as told by your health care provider. Do not stoptaking the antibiotic even if you start to feel better. Activity ??? Rest and return to your normal activities as told by your health care provider. Ask your healthcare provider what activities are safe for you. ??? Do not drive or use heavy machinery while taking prescription pain medicine. General instructions ??? Monitor your pleurisy for any changes. ??? Take deep breaths often, even if it is painful. This can help prevent lung infection (pneumonia) and collapse of lung tissue (atelectasis). ??? When lying down, lie on your painful side. This may reduce pain. ??? Do not smoke. If you need help quitting, ask your health care provider. ??? Keep all follow-up visits as told by your health care provider. This is important. Contact a health care provider if: ??? You have pain that: ??? Gets worse. ??? Does not get better with medicine. ??? Lasts for more than 1 week. ??? You have a fever or chills. ??? Your cough or shortness of breath is not improving at home. ??? You cough up pus-like (purulent) secretions. Get help right away if: ??? Your lips, fingernails, or toenails darken or turn blue. ??? You cough up blood. ??? You have any of the following symptoms that get worse: ??? Difficulty breathing. ??? Shortness of breath. ??? Wheezing. ??? You have pain that spreads into your neck, arms, or jaw. ??? You develop a rash. ??? You vomit. ??? You faint. Summary ??? Pleurisy is inflammation of the linings of the lungs (pleura). ??? Pleurisy causes pain that makes it difficult for you to breathe or cough. ??? Pleurisy is often caused by an underlying infection or disease. ??? Treatment of pleurisy depends on the cause, and it often includes medicines. This information is not intended to replace advice given to you by your health care provider. Make sure you discuss any questions you have with your health care provider. Document Released: 03/25/2006 Document Revised: 12/17/2016 Document Reviewed: 12/17/2016 [employer] Interactive Patient Education ?? 2019 [employer]. Follow Up Care 01/13/2019 09:59:12 With:PCP Referral Address: N/A Business (1) When:3 to 5 days Comments:Call for followup appointment
--- OUTSIDE RECORDS SUMMARY | 2023-05-12 16:46 | XMS_ITS | Continuity of Care Document ---
Author Name Unknown Organization [facility] Address [address] [place] [address] Care Team Providers Care Rn Iv Therapy Name Role Phone Beena [place] Primary Care Physician Tony blevins Encounter BVT Date(s): 06/10/19 - 06/10/19 [facility] [address] [facility] [place] [address]- Encounter Diagnosis Breast mass in female(Discharge Diagnosis) - 06/10/19 Discharge Disposition: Home or Self Care Attending Physician: MAHOGANY SHINE Allergies, Adverse Reactions, Alerts Substance Reaction Severity Status poison kriss Active amitriptyline Active Assessment and Plan Extracted from: Title:MAINTENANCE INSTRUCTOR: breast mass and tenderness Author:MAHOGANY MORALES Date:06/10/19 Breast mass in female??N63.0 Reassurance that mass is most c/w cyst and that these usually resolve after period. Will return in 2 weeks for repeat breast exam. Encouraged patient not to squeeze nipple or mass and to avoid caffeine. Future Appointments Immunizations Given and Recorded Vaccine Date Status Refusal Reason HPV 11//13 Recorded HPV 7/8/13 Recorded HPV /8/13 Recorded Tdap 09/02/09 Recorded Medications 10 cc Syringe 10 cc Syringe, See Instructions, Use for Preparing Pizarro Compound, # 24 EA, 3 Refill(s), Pharmacy: [facility], Use for Preparing Pizarro Compound, Supply Start Date: 02/22/17 Status: Ordered 10 FR Cure Catheter Silicone Urethral 10 FR Cure Catheter Silicone Urethral, See Instructions, Use for Preparing Pizarro Compound, # 12 EA, 3 Refill(s), Pharmacy: [facility], Use for Preparing Pizarro Compound, Supply Start Date: 04/11/18 Status: Ordered 18 gauge 1 1/2 needle 18 gauge 1 1/2 needle, See Instructions, Use for Preparing Pizarro Compound, # 24 EA, 3 Refill(s),Pharmacy: [facility], Use for Preparing Pizarro Compound, Supply Start Date: 02/22/17 Status: Ordered 60cc Catheter Tip Syringe 60cc Catheter Tip Syringe, See Instructions, Use for Preparing Pizarro Compound, # 12 EA, 3 Refill(s), Pharmacy: [facility], Use for Preparing Pizarro Compound, Supply Start Date: 02/22/17 Status: Ordered clonazePAM 0.5 mg oral tablet mg tab(s), Oral, TID, 0 Refill(s) Start Date: 09/09/16 Status: Ordered Elmiron 100 mg oral capsule 100 mg = 1 cap(s), Oral, TID, # 90 cap(s), 6 Refill(s), Pharmacy: [facility], 1 cap(s) Oral TID Start Date: 04/11/18 Status: Ordered Hyophen oral tablet 1 tab(s), Oral, QID, # 120, 11 Refill(s) Start Date: 02/06/17 Status: Ordered lidocaine 2% injectable solution See Instructions, Use 8cc when preparing Pizarro Compound, # 200 mL, 3 Refill(s), Pharmacy: [facility], Use 8cc when preparing Pizarro Compound Start Date: 02/22/17 Status: Ordered Lidocaine Urojet - lidocaine hydrochloride jelly 2% 200mg (20mg/ml) Lidocaine Urojet - lidocaine hydrochloride jelly 2% 200mg (20mg/ml), See Instructions, use as instructed prior to Pizarro installation, # 25 EA, 0 Refill(s), [facility], use as instructed prior to Pizarro installation, Kirk... Start Date: 04/18/18 Status: Ordered Mirena EA, Intrauteral, Once, 0 Refill(s) Start Date: 09/09/16 Status: Ordered pentosan polysulfate sodium 100 mg oral capsule 100 mg = 1 cap(s), Oral, TIDAC, # 90 cap(s), 0 Refill(s) Start Date: 06/10/19 Status: Ordered sodium bicarbonate 8.4% intravenous solution See Instructions, Use 4 cc when preparing Pizarro Compound, # 50 mL, 3 Refill(s), Pharmacy: [facility], Use 4 cc when preparing Pizarro Compound Start Date: 02/22/17 Status: Ordered Sterile Specimen Cup Sterile Specimen Cup, See Instructions, Use for Preparing Pizarro Compound, # 12 EA, 3 Refill(s), Pharmacy: [facility], Use for Preparing Pizarro Compound, Supply Start Date: 02/22/17 Status: Ordered sterile water irrigation solution See Instructions, Use 18 cc when preparing Pizarro Compound, # 1,000 mL, 6 Refill(s), Pharmacy: [facility], Use 18 cc when preparing Pizarro Compound Start Date: 02/22/17 Status: Ordered Suboxone 12 mg-3 mg sublingual film Sublingual, Daily, 0 Refill(s) Start Date: 01/05/19 Status: Ordered Problem List Condition Effective Dates Status Health [...] Related Diagnosis Body Site Status None Completed Vital Signs Most recent to oldest [Reference Range]: 1 Peripheral Pulse Rate [60-100 bpm] 113 b pm *HI* (06/10/19 2:40 PM) Blood Pressure [90-140/60-90 mmHg] 110/6 0mmHg (06/10/19 2:40 PM) Weight 52.48 kg (06/10/19 2:40 PM) Weight Measured (lbs) 115.456 lb (06/10/19 2:40 PM) Social History Social History Type Response Smoking Status 4 or less cigarettes (less than 1/4 pack)/day in last 30 days; Tobacco use per day: 0.25 PPD; entered on: 11/21/18 Sex Female 1did not smoke while Hospital Discharge Instructions Patient Education 06/10/2019 15:28:26 Breast Tenderness Breast Tenderness Breast tenderness is a common problem for women of all ages. Breast tenderness may cause mild discomfort to severe pain. The pain usually comes and goes in association with your menstrual cycle, but it can be constant. Breast tenderness has many possible causes, including hormone changes and some medicines. Your health care provider may order tests, such as a mammogram or an ultrasound, to check for any unusual findings. Having breast tenderness usually does not mean that you have breast cancer. Follow these instructions at home: Sometimes, reassurance that you do not have breast cancer is all that is needed. In general, followthese home care instructions: Managing pain and discomfort ??? If directed, apply ice to the area: ??? Put ice in a plastic bag. ??? Place a towel between your skin and the bag. ??? Leave the ice on for 20 minutes, 2???3 times a day. ??? Make sure you are wearing a supportive bra, especially during exercise. You may also want to wear a supportive bra while sleeping if your breasts are very tender. Medicines ??? Take [id number] and prescription medicines only as told by your health care provider. If the cause of your pain is infection, you may be prescribed an antibiotic medicine. ??? If you were prescribed an antibiotic, take it as told by your health care provider. Do not stoptaking the antibiotic even if you start to feel better. General instructions ??? Your health care provider may recommend that you reduce the amount of fat in your diet. You janette this by: ??? Limiting fried foods. ??? Cooking foods using methods, such as baking, boiling, grilling, and broiling. ??? Decrease the amount of caffeine in your diet. You can do this by drinking more water and choosing caffeine-free options. ??? Keep a log of the days and times when your breasts are most tender. ??? Ask your health care provider how to do breast exams at home. This will help you notice if you have an unusual growth or lump. Contact a health care provider if: ??? Any part of your breast is hard, red, and hot to the touch. This may be a sign of infection. ??? You are not and you have fluid, especially blood or pus, coming out of your nipples. ??? You have a fever. ??? You have a new or painful lump in your breast that remains after your menstrual period ends. ??? Your pain does not improve or it gets worse. ??? Your pain is interfering with your daily activities. This information is not intended to replace advice given to you by your health care provider. Make sure you discuss any questions you have with your health care provider. Document Released: 03/07/2009 Document Revised: 12/21/2016 Document Reviewed: 12/21/2016 [employer] Interactive Patient Education ?? 2019 [employer] Follow Up Care 06/10/2019 14:38:43 With:MAHOGANY SHINE Address: Business (1) When:06/24/2019 15:26:49 Comments:F/u breast exam
--- OUTSIDE RECORDS SUMMARY | 2023-05-12 16:46 | XMS_ITS | Continuity of Care Document ---
Author Name Unknown Organization [facility] Address [address] [place] [address]- Care Team Providers Care Director Of Graduate Admissions Name Role Phone MYA LAWSON Primary Care Physician [phone] Encounter BVT Date(s): 05/02/23 - 05/02/[address] [address] [phone] Discharge Disposition: Home Attending Physician: Tacos Chase MD Admitting Physician: Tacos Chase MD Allergies, Adverse Reactions, Alerts Substance Reaction Severity Status poison kriss Active amitriptyline Active Assessment and Plan Future Appointments Future Scheduled Tests Radiology* MRI LE Joint w/ + w/o Contrast Right 05/10/23 Immunizations Given and Recorded Vaccine Date Status Refusal Reason Tdap 09/25/21 Given Tdap 09/02/09 Recorded HPV 11/11/13 Recorded HPV 7/8/13 Recorded HPV 5/8/13 Recorded Medications clonazePAM 0.5 mg oral tablet [...] Diagnosis Body Site Status None Completed Results Radiology Reports * Exam Date Time Procedure Performing Provider Status 05/02/23 8:00 AM XR Tibia +Fibula 2 Views Rt George Cooney; Tushar (Verified) Notes: (XR Tibia +Fibula 2 Views Rt) Reason For Exam: right calf cyst XR Tibia +Fibula 2 Views Rt EXAMINATION: XR Tibia +Fibula 2 Views Rt CLINICAL HISTORY: right calf cyst;M85.661 Other cyst of bone, right lower leg TECHNIQUE: Frontal and lateral views of the right tibia and fibula. COMPARISON: None FINDINGS: No acute fracture or dislocation. No focal bone lesions are seen. Soft tissues are grossly unremarkable. IMPRESSION: Unremarkable exam. Thank you for letting us participate in the care of this patient. If you are a health care provider and have any questions regarding this report, please contact the number below. For patients who have questions please contact the health director of healthcare systems that requested your imaging first. Final Dictated: 05/02/2023 9:29 am NEHEMIAS GOODE Signed (Electronic Signature): 05/02/2023 9:29 am Signed by: NEHEMIAS GOODE Social History Social History Type Response Tobacco Current everyday tob acco user Tobacco Use:. 1/2 ppd per day. Sex Female Immunization summary report * Vidya Gomez N: PERFORM Event Display: Immunization Record Authored Date: [id number] Patient Care team information Care Team Personnel Name: MYA LAWSON Position: [facility] View Only Member Role: Informed Provider Address: Address: [facility] [address] [place] [address]- [place] Care Team Related Persons Name: DENTON CARUSO Address: Home [address] [place], [place] [id number] Name: JULIO REYNA Name: MARTHA POOL Name: MARTHA POOL Address: Home [address] [facility] [id number]
--- OUTSIDE RECORDS SUMMARY | 2023-05-12 16:46 | XMS_ITS | Continuity of Care Document ---
Author Name Unknown Organization [facility] Address [address] [place] [address] Care Team Providers Care Studio Data Analyst Name Role Phone MYA LAWSON Primary Care Physician Encounter BVT Date(s): 06/19/21 - 06/19/[address] [address] [phone] Discharge Disposition: Home Attending Physician: SHANTAL KNIGHT Admitting Physician: SHANTAL KNIGHT Allergies, Adverse Reactions, Alerts Substance Reaction Severity Status poison kriss Active amitriptyline Active Assessment and Plan Future Appointments Immunizations Given and Recorded Vaccine Date Status Refusal Reason HPV 11/11/13 Recorded HPV 7/8/13 Recorded HPV /8/13 Recorded Tdap 09/02/09 Recorded Medications 10 cc Syringe 10 cc Syringe, See Instructions, Use for Preparing Pizarro Compound, # 24 EA, 3 Refill(s), Pharmacy: [facility], Use for Preparing Pizarro Compound, Supply Start Date: 02/22/17 Status: Ordered 10 FR Cure Catheter Silicone Urethral 10 FR Cure Catheter Silicone Urethral, See Instructions, Use for Preparing Pizarro Compound, # 12 EA, 3 Refill(s), Pharmacy: [facility], Use for Preparing Pizarro Compound, Supply Start Date: 04/11/18 Status: Ordered 18 gauge 1 1/2 needle 18 gauge 1 1/2 needle, See Instructions, Use for Preparing Pizarro Compound, # 24 EA, 3 Refill(s),Pharmacy: [facility], Use for Preparing Pizarro Compound, Supply Start Date: 02/22/17 Status: Ordered 60cc Catheter Tip Syringe 60cc Catheter Tip Syringe, See Instructions, Use for Preparing Pizarro Compound, # 12 EA, 3 Refill(s), Pharmacy: [facility], Use for Preparing Pizarro Compound, Supply Start Date: 02/22/17 Status: Ordered clonazePAM 0.5 mg oral tablet mg tab(s), Oral, TID, 0 Refill(s) Start Date: 09/09/16 Status: Ordered cyclobenzaprine 10 mg oral tablet 10 mg = 1 tab(s), Oral, TID, PRN PRN Migraine Headache, # 30 tab(s), 1 Refill(s), 09/16/21, [facility]acy: [facility] [facility], 1 tab(s) Oral TID,PRN:Migraine Headache, 165, cm, 11/23/20 12:19:00 EDT, Height/Length Dosing, 81.65, kg, 11/23/20 12:... Start Date: 05/19/21 Stop Date: 09/16/21 Status: Ordered Elmiron 100 mg oral capsule 100 mg = 1 cap(s), Oral, TID, # 90 cap(s), 6 Refill(s), Pharmacy: [facility], 1 cap(s) Oral TID Start Date: 04/11/18 Status: Ordered Hyophen oral tablet 1 tab(s), Oral, QID, # 120, 11 Refill(s) Start Date: 02/06/17 Status: Ordered lidocaine 2% injectable solution See Instructions, Use 8cc when preparing Pizarro Compound, # 200 mL, 3 Refill(s), Pharmacy: [facility], Use 8cc when preparing Pizarro Compound Start Date: 02/22/17 Status: Ordered Lidocaine Urojet - lidocaine hydrochloride jelly 2% 200mg (20mg/ml) Lidocaine Urojet - lidocaine hydrochloride jelly 2% 200mg (20mg/ml), See Instructions, use as instructed prior to Pizarro installation, # 25 EA, 0 Refill(s), Pharmacy: [facility] [facility] #, use as instructed prior to Pizarro installation, Kirk... Start Date: 04/18/18 Status: Ordered Mirena EA, Intrauteral, Once, 0 Refill(s) Start Date: 09/09/16 Status: Ordered pentosan polysulfate sodium 100 mg oral capsule 100 mg = 1 cap(s), Oral, TIDAC, # 90 cap(s), 0 Refill(s) Start Date: 06/10/19 Status: Ordered Phenergan 25 mg rectal suppository 25 mg = 1 supp, Per rectum, q6hr, # 12 supp, 0 Refill(s), Pharmacy: [facility] #, 1 supp Per rectum q6hr, 165, cm, 11/23/20 12:19:00 EDT, Height/Length Dosing, 81.65, kg, 11/23/20 12:19:00 EDT, Weight Dosing Start Date: 11/23/20 Status: Ordered promethazine 25 mg oral tablet 25 mg = 1 tab(s), Oral, q6hr, # 12 tab(s), 0 Refill(s), Pharmacy: [facility] #, 1 tab(s) Oral q6hr, 165, cm, 11/23/20 12:19:00 EDT, Height/Length Dosing, 81.65, kg, 11/23/20 12:19:00EDT, Weight Dosing Start Date: 11/23/20 Status: Ordered propranolol 60 mg oral capsule, extended release 60 mg = 1 cap(s), Oral, HS, # 30 cap(s), 1 Refill(s), Pharmacy: [facility], 1 cap(s) Oral HS, 165, cm, 06/18/21 15:04:00 EDT, Height/Length Dosing, 81.5, kg, 06/18/21 15:04:00 EDT,Weight Dosing Start Date: 06/19/21 Status: Ordered rizatriptan 10 mg oral tablet 10 mg = 1 tab(s), Oral, Daily, Take 1 tablet at onset of migraine. May repeat dose once in 2 hours.Do not take more than 2 tablets within 24 hour period., # 9 tab(s), 1 Refill(s), Pharmacy: [facility] #, 1 tab(s) Oral Daily,Instr:Brandon... Start Date: 05/01/21 Status: Ordered rizatriptan 10 mg oral tablet, disintegrating See Instructions, Take 1 tab at the onset of migraine. Repeat 1 tab in 1-2 hrs if needed. No more than 2 tabs in 24 hrs., # 9 tab(s), 3 Refill(s), 09/16/21, [facility]: [facility] [place] [address] [address] #, Take 1 tab at the onset of migraine. Repeat 1 tab in... Start Date: 05/19/21 Stop Date: 09/16/21 Status: Ordered sodium bicarbonate 8.4% intravenous solution See Instructions, Use 4 cc when preparing Pizarro Compound, # 50 mL, 3 Refill(s), Pharmacy: [facility], Use 4 cc when preparing Pizarro Compound Start Date: 02/22/17 Status: Ordered Sterile Specimen Cup Sterile Specimen Cup, See Instructions, Use for Preparing Pizarro Compound, # 12 EA, 3 Refill(s), Pharmacy: [facility], Use for Preparing Pizarro Compound, Supply Start Date: 02/22/17 Status: Ordered sterile water irrigation solution See Instructions, Use 18 cc when preparing Pizarro Compound, # 1,000 mL, 6 Refill(s), Pharmacy: [facility], Use 18 cc when preparing Pizarro [...] Active Insomnia(Confirmed) Active Substance use disorder(Confirmed) Active Right-sided headache(Confirmed) Active Urinary hesitancy(Confirmed) Active Vaginal discharge(Confirmed) Active Procedures Procedure Date Related Diagnosis Body Site Status None Completed Results Radiology Reports * Exam Date Time Procedure Performing Provider Status 06/19/21 3:49 PM MRI Brain w/o Contrast Plifka, Yesi; Auth (Verified) Notes: (MRI Brain w/o Contrast) Reason For Exam: right sided headache. change in headaches MRI Brain w/o Contrast EXAMINATION: MRI Brain w/o Contrast CLINICAL HISTORY: right sided headache. change in headaches;R51.9 Headache, unspecified TECHNIQUE: MRI of the brain performed without intravenous contrast administration. COMPARISON: None FINDINGS: There is no evidence of restricted diffusion to suggest acute or early subacute infarction. There is no evidence of magnetic susceptibility to suggest degraded blood products. There is no extraaxial or intra-axial collection of blood or fluid. There is no focus of abnormal signal intensity. The ventricular system is not dilated, and it is midline in position. There is no evidence of an intra-cranial mass lesion. The orbits and paranasal sinuses are unremarkable in appearance. IMPRESSION: Unremarkable brain MRI. Thank you for letting us participate in the care of this patient. If you are a health care provider and have any questions regarding this report, please contact the number below. For patients who have questions please contact the health care manager that requested your imaging first. Final Dictated: 06/19/2021 4:21 pm NEHEMIAS GOODE Signed (Electronic Signature): 06/19/2021 4:21 pm Signed by: NEHEMIAS GOODE Social History Social History Type Response Smoking Status 5-9 cigarettes (betw een 1/4 to 1/2 pack)/day in last 30 days entered on: 05/01/21 Sex Female 1did not smoke while Note * NEHEMIAS GOODE: VERIFY, VERIFY, PERFORM Event Display: Report Authored Date: EXAMINATION: MRI Brain w/o Contrast CLINICAL HISTORY: right sided headache. change in headaches;R51.9 Headache, unspecified TECHNIQUE: MRI of the brain performed without intravenous contrast administration. COMPARISON: None FINDINGS: There is no evidence of restricted diffusion to suggest acute or early subacute infarction. There is no evidence of magnetic susceptibility to suggest degraded blood products. There is no extraaxial or intra-axial collection of blood or fluid. There is no focus of abnormal signal intensity. The ventricular system is not dilated, and it is midline in position. There is no evidence of an intra-cranial mass lesion. The orbits and paranasal sinuses are unremarkable in appearance. IMPRESSION: Unremarkable brain MRI. Thank you for letting us participate in the care of this patient. If you are a health care provider and have any questions regarding this report, please contact the number below. For patients who have questions please contact the health care manager that requested your imaging first. Final Dictated: 06/19/2021 4:21 pm NEHEMIAS GOODE Signed (Electronic Signature): 06/19/2021 4:21 pm Signed by: NEHEMIAS GOODE Care Team Personnel Name: MYA LAWSON Address: [facility] [address] [place] [address]- [place]
--- OUTSIDE RECORDS SUMMARY | 2023-05-12 16:46 | XMS_ITS | Continuity of Care Document ---
Author Name Unknown Organization [facility] Address [address] [place] [address] Care Team Providers Care Solar Installation Crew Supervisor Name Role Phone Beena Hill Primary Care Physician Tony navailable Encounter BVT Date(s): 01/29/19 - 01/29/19 [facility] [address] [facility] [place] [address] Allergies, Adverse Reactions, Alerts Substance Reaction Severity Status poison kriss Active amitriptyline Active Immunizations Given and Recorded Vaccine Date Status Refusal Reason HPV 11/11/13 Recorded HPV 7/8/13 Recorded HPV 5/8/13 Recorded Tdap 09/02/09 Recorded Medications 10 cc Syringe 10 cc Syringe, See Instructions, Use for Preparing Pizarro Compound, # 24 EA, 3 Refill(s), Pharmacy: [facility], Use for Preparing Pizarro Compound, Supply Start Date: 02/22/17 Status: Ordered 10 FR Cure Catheter Silicone Urethral 10 FR Cure Catheter Silicone Urethral, See Instructions, Use for Preparing Pizarro Compound, # 12 EA, 3 Refill(s), Pharmacy: [facility], Use for Preparing Pizarro Compound, Supply Start Date: 04/11/18 Status: Ordered 18 gauge 1 1/2 needle 18 gauge 1 1/2 needle, See Instructions, Use for Preparing Pizarro Compound, # 24 EA, 3 Refill(s),Pharmacy: [facility], Use for Preparing Pizarro Compound, Supply Start Date: 02/22/17 Status: Ordered 60cc Catheter Tip Syringe 60cc Catheter Tip Syringe, See Instructions, Use for Preparing Pizarro Compound, # 12 EA, 3 Refill(s), Pharmacy: [facility], Use for Preparing Pizarro Compound, Supply Start Date: 02/22/17 Status: Ordered clonazePAM 0.5 mg oral tablet mg tab(s), Oral, TID, 0 Refill(s) Start Date: 09/09/16 Status: Ordered Elmiron 100 mg oral capsule 100 mg = 1 cap(s), Oral, TID, # 90 cap(s), 6 Refill(s), Pharmacy: [facility], 1 cap(s) Oral TID Start [...] Compound, # 200 mL, 3 Refill(s), Pharmacy: [facility], Use 8cc when preparing Pizarro Compound Start Date: 02/22/17 Status: Ordered Lidocaine Urojet - lidocaine hydrochloride jelly 2% 200mg (20mg/ml) Lidocaine Urojet - lidocaine hydrochloride jelly 2% 200mg (20mg/ml), See Instructions, use as instructed prior to Pizarro installation, # 25 EA, 0 Refill(s), [facility] [facility] [facility], use as instructed prior to Pizarro installation, Kirk... Start Date: 04/18/18 Status: Ordered Mirena EA, Intrauteral, Once, 0 Refill(s) Start Date: 09/09/16 Status: Ordered sodium bicarbonate 8.4% intravenous solution See Instructions, Use 4 cc when preparing Pizarro Compound, # 50 mL, 3 Refill(s), Pharmacy: [facility], Use 4 cc when preparing Pizarro Compound Start Date: 02/22/17 Status: Ordered Sterile Specimen Cup Sterile Specimen Cup, See Instructions, Use for Preparing Pizarro Compound, # 12 EA, 3 Refill(s), Pharmacy: [facility], Use for Preparing Pizarro Compound, Supply Start Date: 02/22/17 Status: Ordered sterile water irrigation solution See Instructions, Use 18 cc when preparing Pizarro Compound, # 1,000 mL, 6 Refill(s), Pharmacy: [facility], Use 18 cc when preparing Pizarro [...] Related Diagnosis Body Site Status None Completed Social History Social History Type Response Smoking Status 4 or less cigarettes (less than 1/4 pack)/day in last 30 days; Tobacco use per day: 0.25 PPD; entered on: 02/26/18 Sex Female 1did not smoke while
--- OUTSIDE RECORDS SUMMARY | 2023-05-12 16:46 | XMS_ITS | Continuity of Care Document ---
Author Name Unknown Organization Address [address] [place] [id number] Care Team Providers Care Rock Breaker Name Role Phone MYA LAWSON Primary Care Physician [phone] Encounter BVT Date(s): 05/10/23 - 05/10/[address] [address] [phone] Discharge Disposition: Home Attending Physician: Tacos Chase [...] Active Anxiety Confirmed Active Asthma Confirmed Active Federicauria Confirmed Active IC (interstitial cystitis) Confirmed Active [...] Exam Date Time Procedure Performing Provider Status 2/2/24 11:42 AM MRI LE Joint w/ + w/ o Contrast Right Malu Juan; Tushar (Verified) Notes: (MRI LE Joint w/ + w/o Contrast Right) Reason For Exam: urgent mri of right knee, eval mass for malignancy MRI LE Joint w/ + w/o Contrast Right EXAMINATION: MRI LE Joint w/ + w/o Contrast Right CLINICAL HISTORY: urgent mri of right knee, eval mass for malignancy;R22.41 Localized swelling, mass and lump, right lower deras (as entered by ordering provider in the order requisition) TECHNIQUE: MR of the right knee was performed with and without contrast. Postcontrast images were obtained after intravenous administration of 10 mL of Dotarem. Sequences include axial T1, axial T2 with fat saturation, axial vibe with fat saturation pre and postcontrast, coronal STIR, sagittal T1, coronal and sagittal vibe with fat saturation postcontrast. COMPARISON: Right tibia radiographs 05/02/2022. FINDINGS: There is a skin marker along the posterolateral margin of the knee. There is a heterogeneously T2 hyperintense, T1 hypointense, predominantly peripherally enhancing mass centered in the subcutaneous fat immediately adjacent to the lateral head of the gastrocnemius. This finding measures 1.3 x 1.2 x 2.0 cm, and this finding appears to have a targetoid appearance, on the T2 weighted sequence. There are central nonenhancing components which could represent cystic degeneration versus necrosis. This finding is contiguous with the common peroneal nerve. 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 There is local mass effect on the lateral head of the gastrocnemius, but there appears to be a preserved fat plane between this mass and the lateral head of the gastrocnemius. This finding is posterior to the biceps femoris tendon, without involvement of the tendon. This finding does not involve the bony anatomy of the distal femur or proximal fibula. Normal course and caliber of the tibial nerve. Normal bulk and signal the visualized muscles. No knee joint effusion. Cartilage in the medial, lateral, and patellofemoral compartments is preserved. No appreciable medial or lateral meniscal tear. The anterior posterior cruciate ligaments and the medial collateral and lateral collateral ligaments are intact. The iliotibial band is intact. The biceps femoris tendon is intact. There is a small Howe's cyst. IMPRESSION: 1. 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 Central nonenhancing rim-enhancing components could represent cystic degeneration or central necrosis. No MR evidence of adjacent muscular invasion. No MR evidence of bony involvement. Thank you for letting us participate in the care of this patient. If you are a health care provider and have any questions regarding this report, please contact the number below. For patients who have questions please contact the health medicare contact specialist that requested your imaging first. Final Dictated: 05/10/2023 2:38 pm KARMA COLON Signed (Electronic Signature): 05/10/2023 2:38 pm Signed by: KARMA COLON Social History Social History Type Response Tobacco Current everyday tob acco user Tobacco Use:. 1/2 ppd per day. Sex Female Immunization summary report * Vidya Gomez N: PERFORM Event Display: Immunization Record Authored Date: [id number] Patient Care team information Care Team Personnel Name: MYA LAWSON Position: [facility] View Only Member Role: Informed Provider Address: Address: [facility] [address] [place] [address]- Care Team Related Persons Name: DENTON CARUSO Address: [address] [place], [place] [id number] Name: JULIO REYNA Name: MARTHA POOL Name: MARTHA POOL Address: Home [address] [facility] [id number]
--- OUTSIDE RECORDS SUMMARY | 2023-05-12 16:46 | XMS_ITS | Continuity of Care Document ---
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 Position: [facility] ED Physician LP Member Role: Attending Physician Address: Address: [address] [place] [address] Care Team Related Persons Name: DNETON CARUSO Address: Home [address], [place] [id number] Name: JOSE MIGUEL MALLORY Name: MARTHA POOL Address: Home [address] [id number] Name: MARTHA POOL
--- OUTSIDE RECORDS SUMMARY | 2023-05-12 16:46 | XMS_ITS | Continuity of Care Document ---
Author Name Unknown Organization [facility] Address [address] [place] [address] Care Team Providers Care Vacuum Cleaner Repair Person Name Role Phone [place] Primary Care Physician Tony minorailrodo Encounter BVT Date(s): 01/07/19 - 01/07/[address] [place] [address] Discharge Disposition: Home or Self Care Attending Physician: Katia Gray Allergies, Adverse Reactions, Alerts Substance Reaction Severity Status poison kriss Active amitriptyline Active Assessment and Plan Future Appointments Immunizations Given and Recorded Vaccine Date Status Refusal Reason HPV 11/11/13 Recorded HPV 7/8/13 Recorded HPV 5/8/13 Recorded Tdap 09/02/09 Recorded Medications 10 cc Syringe 10 cc Syringe, See Instructions, Use for Preparing Pizarro Compound, # 24 EA, 3 Refill(s), Pharmacy: [facility], Use for Preparing Pizarro Compound, Supply Start Date: 02/22/17 Status: Ordered 10 FR Cure Catheter Silicone Urethral 10 FR Cure Catheter Silicone Urethral, See Instructions, Use for Preparing Pizarro Compound, # 12 EA, 3 Refill(s), Pharmacy: [facility], Use for Preparing Pizarro Compound, Supply Start Date: 04/11/18 Status: Ordered 18 gauge 1 1/2 needle 18 gauge 1 1/2 needle, See Instructions, Use for Preparing Pizarro Compound, # 24 EA, 3 Refill(s),Pharmacy: [facility], Use for Preparing Pizarro Compound, Supply Start Date: 02/22/17 Status: Ordered 60cc Catheter Tip Syringe 60cc Catheter Tip Syringe, See Instructions, Use for Preparing Pizarro Compound, # 12 EA, 3 Refill(s), Pharmacy: [facility], Use for Preparing Pizarro Compound, Supply Start Date: 02/22/17 Status: Ordered albuterol 90 mcg/inh inhalation aerosol = 2 puff(s), INH, q4hr, PRN PRN for wheezing, # 6.7 gm, 0 Refill(s), 01/15/19 Start Date: 01/05/19 Stop Date: 01/15/19 Status: Ordered benzonatate 100 mg oral capsule 100 mg = 1 cap(s), Oral, TID, X 7 day(s), # 21 cap(s), 0 Refill(s), 01/14/19, Pharmacy: [facility], 1 cap(s) Oral TID,x7 day(s) Start Date: 01/07/19 Stop Date: 01/14/19 Status: Ordered clonazePAM 0.5 mg oral tablet mg tab(s), Oral, TID, 0 Refill(s) Start Date: 09/09/16 Status: Ordered cyclobenzaprine 5 mg oral tablet 5 mg = 1 tab(s), Oral, TID, X 7 day(s), # 21 tab(s), 0 Refill(s), 01/14/19, Pharmacy: [facility], pt is not actively taking hyophen and she has been contacted and agrees to not take medications together, 1 tab(s) Oral TID,x7 day(s) Start Date: 01/07/19 Stop Date: 01/14/19 Status: Ordered doxycycline hyclate 100 mg oral capsule 100 mg = 1 cap(s), Oral, BID, X 7 day(s), # 14 cap(s), 0 Refill(s), 01/12/19 Start Date: 01/05/19 Stop Date: 01/12/19 Status: Ordered Elmiron 100 mg oral capsule 100 mg = 1 cap(s), Oral, TID, # 90 cap(s), 6 Refill(s), Pharmacy: [facility], 1 cap(s) Oral TID Start Date: [...] Compound, # 200 mL, 3 Refill(s), Pharmacy: [facility], Use 8cc when preparing Pizarro Compound Start Date: 02/22/17 Status: Ordered Lidocaine Urojet - lidocaine hydrochloride jelly 2% 200mg (20mg/ml) Lidocaine Urojet - lidocaine hydrochloride jelly 2% 200mg (20mg/ml), See Instructions, use as instructed prior to Pizarro installation, # 25 EA, 0 Refill(s), [facility]: [id number] [facility], use as instructed prior to Pizarro installation, Kirk... Start Date: 04/18/18 Status: Ordered Mirena EA, Intrauteral, Once, 0 Refill(s) Start Date: 09/09/16 Status: Ordered sodium bicarbonate 8.4% intravenous solution See Instructions, Use 4 cc when preparing Pizarro Compound, # 50 mL, 3 Refill(s), Pharmacy: [facility], Use 4 cc when preparing Pizarro Compound Start Date: 02/22/17 Status: Ordered Sterile Specimen Cup Sterile Specimen Cup, See Instructions, Use for Preparing Pizarro Compound, # 12 EA, 3 Refill(s), Pharmacy: [facility], Use for Preparing Pizarro Compound, Supply Start Date: 02/22/17 Status: Ordered sterile water irrigation solution See Instructions, Use 18 cc when preparing Pizarro Compound, # 1,000 mL, 6 Refill(s), Pharmacy: [facility], Use 18 cc when preparing Pizarro Compound Start Date: 02/22/17 Status: Ordered Suboxone 12 mg-3 mg sublingual film Sublingual, Daily, 0 Refill(s) Start Date: 01/05/19 Status: Ordered Problem List Condition Effective Dates Status Health Status Inform ant Abdominal pain(Confirmed) Active Acute UTI(Confirmed) Active Bacteriuria(Confirmed) Active IC (interstitial cystitis)(Confirmed) Active Gross hematuria(Confirmed) Active Overactive bladder(Confirmed) Active Irregular bleeding(Confirmed) Active Depression(Confirmed) Active Female pelvic pain(Confirmed) Active Panic disorder without agoraphobia(Confirmed) Active Pyuria(Confirmed) Active Severe anxiety(Confirmed) Active Insomnia(Confirmed) Active Urinary hesitancy(Confirmed) Active Vaginal discharge(Confirmed) Active Procedures Procedure Date Related Diagnosis Body Site Status None Completed Vital Signs Most recent to oldest [Reference Range]: 1 Temperature Oral [35.8-37.3 DegC] 36.8 D egC (01/07/19 11:53 AM) Peripheral Pulse Rate [60-100 bpm] 85 bp m (01/07/19 11:53 AM) Blood Pressure [90-140/60-90 mmHg] 106/6 4mmHg (01/07/19 11:53 AM) SpO2 [92-100 %] 96 % (01/07/19 11:53 AM) Height 168 cm (01/07/19 11:53 AM) Height/Length Measured (inches) 66.1 in (01/07/19 11:53 AM) Weight 53.61 kg (01/07/19 11:53 AM) Weight Measured (lbs) 117.942 lb (01/07/19 11:53 AM) BSA Measured 1.58 m2 (01/07/19 11:53 AM) Body Mass Index 18.99 kg/m2 (01/07/19 11:53 AM) Social History Social History Type Response Smoking Status 4 or less cigarettes (less than 1/4 pack)/day in last 30 days; Tobacco use per day: 0.25 PPD; entered on: 02/26/18 Sex Female 1did not smoke while
--- OUTSIDE RECORDS SUMMARY | 2023-05-12 16:47 | XMS_ITS | Continuity of Care Document ---
Author Name Unknown Organization [facility] Address [address] [place] [address] Care Team Providers Care Advertising Supervisor Name Role Phone [place] Primary Care Physician U ivánailable Encounter BVT Date(s): 01/16/19 - 01/16/[address] [place] [address] Discharge Disposition: Home or Self Care Attending Physician: Katia Gray Allergies, Adverse Reactions, Alerts Substance Reaction Severity Status poison kriss Active amitriptyline Active Immunizations Given and Recorded Vaccine Date Status Refusal Reason HPV 02/16/13 Recorded HPV /8/13 Recorded HPV /8/13 Recorded Tdap 09/02/09 Recorded Medications 10 cc Syringe 10 cc Syringe, See Instructions, Use for Preparing Pizarro Compound, # 24 EA, 3 Refill(s), Pharmacy: [facility], Use for Preparing Pizarro Compound, Supply Start Date: 02/22/17 Status: Ordered 10 FR Cure Catheter Silicone Urethral 10 FR Cure Catheter Silicone Urethral, See Instructions, Use for Preparing Pizarro Compound, # 12 EA, 3 Refill(s), Pharmacy: [facility], Use for Preparing Pizarro Compound, Supply Start Date: 04/11/18 Status: Ordered 18 gauge 1 1/2 needle 18 gauge 1 1/2 needle, See Instructions, Use for Preparing Pizarro Compound, # 24 EA, 3 Refill(s),Pharmacy: [facility], Use for Preparing Pizarro Compound, Supply Start Date: 02/22/17 Status: Ordered 60cc Catheter Tip Syringe 60cc Catheter Tip Syringe, See Instructions, Use for Preparing Pizarro Compound, # 12 EA, 3 Refill(s), Pharmacy: [facility], Use for Preparing Pizarro Compound, Supply Start Date: 02/22/17 Status: Ordered acetaminophen 500 mg oral tablet 1,000 mg = 2 tab(s), Oral, QID, X 7 day(s), # 60 tab(s), 0 Refill(s), 01/20/19 Start Date: 01/13/19 Stop Date: 01/20/19 Status: Ordered clonazePAM 0.5 mg oral tablet mg tab(s), Oral, TID, 0 Refill(s) Start Date: 09/09/16 Status: Ordered Elmiron 100 mg oral capsule 100 mg = 1 cap(s), Oral, TID, # 90 cap(s), 6 Refill(s), Pharmacy: [facility], 1 cap(s) Oral TID Start Date: 04/11/18 [...] Compound, # 200 mL, 3 Refill(s), Pharmacy: [facility], Use 8cc when preparing Pizarro Compound Start Date: 02/22/17 Status: Ordered Lidocaine Urojet - lidocaine hydrochloride jelly 2% 200mg (20mg/ml) Lidocaine Urojet - lidocaine hydrochloride jelly 2% 200mg (20mg/ml), See Instructions, use as instructed prior to Pizarro installation, # 25 EA, 0 Refill(s), Pharmacy: [id number] [facility], use as instructed prior to Pizarro installation, Kirk... Start Date: 04/18/18 Status: Ordered Mirena EA, Intrauteral, Once, 0 Refill(s) Start Date: 09/09/16 Status: Ordered sodium bicarbonate 8.4% intravenous solution See Instructions, Use 4 cc when preparing Pizarro Compound, # 50 mL, 3 Refill(s), Pharmacy: [facility], Use 4 cc when preparing Pizarro Compound Start Date: 02/22/17 Status: Ordered Sterile Specimen Cup Sterile Specimen Cup, See Instructions, Use for Preparing Pizarro Compound, # 12 EA, 3 Refill(s), Pharmacy: [facility], Use for Preparing Pizarro Compound, Supply Start Date: 02/22/17 Status: Ordered sterile water irrigation solution See Instructions, Use 18 cc when preparing Pizarro Compound, # 1,000 mL, 6 Refill(s), Pharmacy: [facility], Use 18 cc when preparing Pizarro [...]
--- OUTSIDE RECORDS SUMMARY | 2023-05-12 16:47 | XMS_ITS | Continuity of Care Document ---
Author Name Unknown Organization [facility] Address [address] [facility] [address] [place] [address]- Care Team Providers Care Snake Charmer Name Role Phone Tobias Kunz Primary Care Physician Encounter [facility] [id number] Date(s): 10/04/21 - 10/04/21 [facility] [address] [facility] [address] [place], [place] [address] Discharge Disposition: Home Attending Physician: Tobias Kunz DO Admitting Physician: Tobias Kunz DO Allergies, Adverse Reactions, Alerts Substance Reaction Severity Status amitriptyline Mild Active Assessment and Plan Future Appointments Functional Status 10/04/21 COVID-19 Screening None Medications ARIPiprazole 5 mg oral tablet 5 mg = 1 tab(s), Oral, Daily, # 30 tab(s), 5 Refill(s), Pharmacy: [id number], replaces selegiline, 1 tab(s) Oral Daily, 170, cm, 08/07/21 11:15:00 EDT, Height/Length Dosing, 88, kg, 08/07/21 11:15:00 EDT, Weight Dosing Start Date: 10/04/21 Status: Ordered clonazePAM 0.5 mg oral tablet = 1 tab(s), Oral, TID, # 21 tab(s), 5 Refill(s), [facility] [facility], 1 tab(s) Oral TID,x7 day(s), 170, cm, 08/07/21 11:15:00 EDT, Height/Length Dosing, 88, kg, 08/07/21 11:15:00 EDT, Weight Dosing Start Date: 09/07/21 Stop Date: 10/19/21 Status: Ordered fluticasone 50 mcg/inh nasal spray 2 spray(s), Nasal, Daily, # 16 gm, 5 Refill(s), Pharmacy: [id number] [facility], 2 spray(s)Nasal Daily Start Date: 10/05/20 Status: Ordered lithium 150 mg oral capsule 150 mg = 1 cap(s), Oral, Once a day (at bedtime), # 30 cap(s), 5 Refill(s), Pharmacy: [id number] [facility], 1 cap(s) Oral Once a day (at bedtime), 170, cm, 08/07/21 11:15:00 EDT, Height/Length Dosing, 88, kg, 08/07/21 11:15:00 EDT, Weight Dosing Start Date: 10/04/21 Status: Ordered Problem List Condition Effective Dates Status Health Status Inform ant Allergic rhinitis(Confirmed) Active KIM (generalized anxiety disorder)(Confirmed) Active Grief(Confirmed) Active Supraorbital headache(Confirmed) Active Insomnia(Confirmed) Active Vital Signs Most recent to oldest [Reference Range]: 1 Peripheral Pulse Rate [60-100 bpm] 104 b pm *HI* (10/04/21 1:47 PM) Blood Pressure [90-140/60-90 mmHg] 110/6 8mmHg (10/04/21 1:47 PM) SpO2 [92-100 %] 98 % (10/04/21 1:47 PM) Social History Social History Type Response Smoking Status 10 or more cigarette s (1/2 pack or more)/day in last 30 days entered on: 10/05/20 Sex Care Team Personnel Name: Tobias Kunz DO Address: [address] P: [phone] F:[phone]
--- OUTSIDE RECORDS SUMMARY | 2023-05-12 16:47 | XMS_ITS | Continuity of Care Document ---
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 you get more short of breath and the inhaler does not help you, if you get a new or different pain or other discomfort in your chest, if you start vomiting, if you start to feel confused or get other new symptoms, return here (or go to the nearest ER if you are away) immediately. Call 911 if necessary. Follow Up Care 01/05/2019 09:43:39 With:[place] Address:Unknown When:1 to 2 days With:PCP Referral Address: N/A [facility] (1) When:1 week Comments:Call tomorrow morning for a followup appointment
--- OUTSIDE RECORDS SUMMARY | 2023-05-12 16:47 | XMS_ITS | Continuity of Care Document ---
Author Name Unknown Organization [facility] Address [address] [facility] [address] [place] [address]- Care Team Providers [employer] Sales And Service Manager Name Role Phone Tobias Kunz Primary Care Physician [phone] Encounter [facility] [id number] Date(s): 10/10/21 - 10/10/21 [facility] [address] [facility] [address] [place], [place] [address] Encounter Diagnosis Severe recurrent major depression(Discharge Diagnosis) - 10/10/21 Discharge Disposition: Home Attending Physician: Tobias Kunz DO Admitting Physician: Tobias Kunz DO Allergies, Adverse Reactions, Alerts Substance Reaction Severity Status amitriptyline Mild Active Assessment and Plan Future Appointments Immunizations Given and Recorded Vaccine Date Status Refusal Reason Td(adult) unspecified formulation 09/25/21 Recorde d Td(adult) unspecified formulation 01/08/14 Recorde d Td(adult) unspecified formulation 09/02/09 Recorde d SARS-CoV-2 mRNA-1273 (6m-5y) vaccine 09/12/20 Eduardo rded SARS-CoV-2 (COVID-19) mRNA-1273 vaccine 08/07/20 R ecorded MMR (measles/mumps/rubella) 01/09/14 Recorded MMR (measles/mumps/rubella) 12/03/97 Recorded HPV, unspecified formulation 02/16/13 Recorded HPV, unspecified formulation 10/13/12 Recorded HPV, unspecified formulation 08/13/12 Recorded hepatitis A adult vaccine 02/16/13 Recorded meningococcal ACWY, unspecified 08/13/12 Recorded hepatitis A pediatric vaccine 08/13/12 Recorded varicella virus vaccine 06/05/06 Recorded varicella virus vaccine 04/06/98 Recorded hepatitis B vaccine 10/02/98 Recorded hepatitis B vaccine 07/13/97 Recorded hepatitis B vaccine 96 Recorded DTaP, unspecified formulation 04/06/98 Recorded DTaP, unspecified formulation 04/13/97 Recorded DTaP, unspecified formulation 02/09/97 Recorded DTaP, unspecified formulation 96 Recorded Hib, unspecified formulation 12/03/97 Recorded Hib, unspecified formulation 04/13/97 Recorded Hib, unspecified formulation 02/09/97 Recorded Hib, unspecified formulation 96 Recorded polio, unspecified formulation 04/13/97 Recorded polio, unspecified formulation 02/09/97 Recorded polio, unspecified formulation 96 Recorded Medications ARIPiprazole 5 mg oral tablet 5 mg = 1 tab(s), Oral, Daily, # 30 tab(s), 5 Refill(s), [facility] UNIT #, replaces selegiline, 1 tab(s) Oral Daily, 170, cm, 08/07/21 11:15:00 EDT, Height/Length Dosing, 88, kg, 08/07/21 11:15:00 EDT, Weight Dosing Start Date: 10/04/21 Status: Ordered clonazePAM 0.5 mg oral tablet = 1 tab(s), Oral, TID, # 21 tab(s), 5 Refill(s), Pharmacy: [facility] UNIT #, 1 tab(s) Oral TID,x7 day(s), 170, cm, 08/07/21 11:15:00 EDT, Height/Length Dosing, 88, kg, 08/07/21 11:15:00 EDT, Weight Dosing Start Date: 09/07/21 Stop Date: 10/19/21 Status: Ordered fluticasone 50 mcg/inh nasal spray 2 spray(s), Nasal, Daily, # 16 gm, 5 Refill(s), Pharmacy: [facility] [address], 2 spray(s)Nasal Daily Start Date: 10/05/20 Status: Ordered lithium 150 mg oral capsule 150 mg = 1 cap(s), Oral, Once a day (at bedtime), # 30 cap(s), 5 Refill(s), [facility]: [id number], 1 cap(s) Oral Once a day (at bedtime), 170, cm, 08/07/21 11:15:00 EDT, Height/Length Dosing, 88, kg, 08/07/21 11:15:00 EDT, Weight Dosing Start Date: 10/04/21 Status: Ordered Problem List Condition Effective Dates Status Health Status Inform ant Allergic rhinitis(Confirmed) Active KIM (generalized anxiety disorder)(Confirmed) Active Grief(Confirmed) Active Supraorbital headache(Confirmed) Active Insomnia(Confirmed) Active Laceration of left forearm w ithout complication(Confirmed) Active Severe recurrent major depression(Confirmed) Active Social History Social History Type Response Smoking Status 10 or more cigarette s (1/2 pack or more)/day in last 30 days entered on: 10/05/20 Sex Care Team Personnel Name: Tobias Kunz DO Address: [address] P: [phone] F:[phone] [place], [place] [id number] [place] [address]
--- OUTSIDE RECORDS SUMMARY | 2023-05-12 16:47 | XMS_ITS | Continuity of Care Document ---
Author Name Unknown Organization [facility] Address [address] [place] [id number] Care Team Providers Care Inspector Balance Bridge Name Role Phone [place] Primary Care Physician Tony blevins Encounter T [facility] [id number] Date(s): 07/10/19 - 07/10/[address] [address]- Encounter Diagnosis LLL pneumonia(Discharge Diagnosis) - 07/10/19 Discharge Disposition: Home or Self Care Attending Physician: CHANTEL SHARMA Admitting Physician: CHANTEL SHARMA Allergies, Adverse Reactions, Alerts Substance Reaction Severity Status poison kriss Active amitriptyline Active Assessment and Plan Extracted from: Title:General Medical Problem *ED Author:CHANTEL SHARMA Date:07/10/19 History of Present Illness 23-year-old woman with a history of anxiety had a minor fall about a week ago and since that time she has had pain up and down the left side of her back. She has had a cough but no rhinorrhea, sore throat or fever and states I do not feel sick. She is not short of breath but feels that she cannot take a deep breath due to pain. She has no travel or sick contacts. Her fianc?? who drove her to the emergency department has not been ill. She saw her doctor a few days ago and was prescribed doxycycline and prednisone which she has been taking. No leg pain, swelling or history of pulmonary embolism. Pain is moderate to severe, interferes with her sleep, and is worse with lying back. She is tried acetaminophen and ibuprofen without relief. Review of Systems Constitutional symptoms: No fever, Skin symptoms: No rash, no abrasions. Respiratory symptoms: Cough, No shortness of breath, Cardiovascular symptoms: Chest pain. Gastrointestinal symptoms: No abdominal pain, Genitourinary symptoms: No dysuria, Neurologic symptoms: No altered level of consciousness, Psychiatric symptoms: Anxiety, sleeping problems. Additional review of systems information: All other systems reviewed and otherwise negative. Health Status Allergies: Allergic Reactions (All) Severity Not Documented Amitriptyline- No reactions were documented. Poison kriss- No reactions were documented. Canceled/Inactive Reactions (All) No Known Medication Allergies. Medications: (Selected) Prescriptions Prescribed 10 FR Cure Catheter Silicone [...] Preparing Pizarro Compound, 12 EA, 3 Refill(s) lidocaine 2% injectable solution: See Instructions, Use 8cc when preparing Pizarro Compound, 200 mL, 3 Refill(s) sodium bicarbonate 8.4% intravenous solution: See [...] oral tablet: mg, tab(s), Oral, TID, 0 Refill(s) pentosan polysulfate sodium 100 mg oral capsule: 100 mg = 1 cap(s), Oral, TIDAC, 90 cap(s), 0 Refill(s). Past Medical/ Family/ Social History Medical history: Resolved Pelvic inflammatory disease ([id number]): Resolved on 09/09/2016 at 20 years. Ruptured ovarian cyst ([id number]): Resolved on 09/09/2016 at 20 years. 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 Surgical history: None ([id number]).. Family history: CA - Breast cancer Grandmother [...] Grandfather (Paternal) Other Relationship Diabetes Father . Problem list: Active Problems (21) Abdominal pain Acute costochondritis Acute UTI Anxiety Asthma Bacteriuria Chronic pain Depression Female pelvic pain Gross hematuria IC (interstitial cystitis) Insomnia Irregular bleeding Overactive bladder Panic disorder without agoraphobia Pneumonia Pyuria Severe anxiety Substance use disorder Urinary hesitancy Vaginal discharge . Physical Examination General: Alert, no acute distress. Skin: Warm, dry. Head: Normocephalic. Eye: Pupils are equal, round and reactive to light. Cardiovascular: Regular rate and rhythm. Respiratory: Lungs are clear to auscultation, respirations are non-labored, breath sounds are equal. Chest wall: No deformity. Musculoskeletal: No tenderness, no swelling. Gastrointestinal: Soft, Nontender. Neurological: Alert and oriented to person, place, time, and situation. Psychiatric: Cooperative. Medical Decision Making Documents reviewed: Prior records. Radiology results: X-ray (ST) X-Ray: ?? XR Chest 1 View Portable ?? 07/10/19 08:50:08 EXAMINATION: XR Chest 1 View Portable CLINICAL HISTORY: cough, chest pain h/o pneumonia 6 months ago, also with fall. R/o PNA and pneumothorax. TECHNIQUE: Portable frontal chest radiograph 07/10/2019 at 0840 hours. COMPARISON: 01/13/2019. FINDINGS: Metallic snaps from patient gown/clothing as well as bilateral nipple piercing jewelry visualized. The right lung is clear. There is streaky linear, hazy nodular, and focal patchy airspace opacity at the left lung base. No appreciable pleural fluid or pneumothorax. Cardiomediastinal silhouette and pulmonary vessel markings within normal limits. No displaced rib fractures are seen, within limits of chest radiography. IMPRESSION: No pneumothorax seen. Streaky, hazy nodular and, patchy opacities at left base. Differential considerations include early/nonconsolidated pneumonia and aspiration pneumonitis. Thank you for letting us participate in the care of this patient. For questions regarding this report, please contact the number below. Electronically signed by: ?? Signed By: JADA FREDERICK , emergency physician interpretation: Left lower lobe pneumonia. Notes: I reviewed the previous records which showed unusual configuration of pneumonia in December to January, chest x-ray cleared with doxycycline, but CT had findings consistent with granulomatous disease as well. I discussed this with the patient and recommended that she isolated at home until her nasopharyngeal swab has resulted, return for worsening symptoms, follow-up with her doctor especially given the abnormal appearance of her prior CT which may require further investigation if this is not a standard infectious process. However the resolution with antibiotics in the past was reassuring. I will provide analgesia for the next few days until she can reach her doctor or the process starts to resolve with ongoing antibiotic treatment.. Impression and Plan Diagnosis LLL pneumonia ([id number] J18.9, Discharge, Medical) Plan Disposition: Medically cleared, Discharged: time 07/10/2019 09:36:00. Prescriptions: Launch prescriptions Pharmacy: morphine 15 mg oral tablet (Prescribe): 15 mg = 1 tab(s), Oral, q6hr, PRN: for pain, 10 tab(s), 0 Refill(s). Patient was given the following educational materials: Community-Acquired Pneumonia, Adult, Community-Acquired Pneumonia, Adult. Follow up with: Tobias Kunz [facility] Within 7 to 10 days. Counseled: Patient. Diagnostic Tests Pending * COVID-19 [place] JOSE 07/10/19 Immunizations Given and Recorded Vaccine Date Status Refusal Reason HPV 11/11/13 Recorded HPV 7/8/13 Recorded HPV 5/8/13 Recorded Tdap 09/02/09 Recorded Medications 10 cc Syringe 10 cc Syringe, See Instructions, Use for Preparing Pizarro Compound, # 24 EA, 3 Refill(s), Pharmacy: [facility], Use for Preparing Pizarro Compound, Supply Start Date: 02/22/17 Status: Ordered 10 FR Cure Catheter Silicone Urethral 10 FR Cure Catheter Silicone Urethral, See Instructions, Use for Preparing Pizarro Compound, # 12 EA, 3 Refill(s), Pharmacy: [facility], Use for Preparing Pizarro Compound, Supply Start Date: 04/11/18 Status: Ordered 18 gauge 1 1/2 needle 18 gauge 1 1/2 needle, See Instructions, Use for Preparing Pizarro Compound, # 24 EA, 3 Refill(s),Pharmacy: [facility], Use for Preparing Pizarro Compound, Supply Start Date: 02/22/17 Status: Ordered 60cc Catheter Tip Syringe 60cc Catheter Tip Syringe, See Instructions, Use for Preparing Pizarro Compound, # 12 EA, 3 Refill(s), Pharmacy: [facility], Use for Preparing Pizarro Compound, Supply Start Date: 02/22/17 Status: Ordered clonazePAM 0.5 mg oral tablet mg tab(s), Oral, TID, 0 Refill(s) Start Date: 09/09/16 Status: Ordered Elmiron 100 mg oral capsule 100 mg = 1 cap(s), Oral, TID, # 90 cap(s), 6 Refill(s), Pharmacy: [facility], 1 cap(s) Oral TID Start Date: 04/11/18 Status: Ordered Hyophen oral tablet 1 tab(s), Oral, QID, # 120, 11 Refill(s) Start Date: 02/06/17 Status: Ordered lidocaine 2% injectable solution See Instructions, Use 8cc when preparing Pizarro Compound, # 200 mL, 3 Refill(s), Pharmacy: [facility], Use 8cc when preparing Pizarro Compound Start Date: 02/22/17 Status: Ordered Lidocaine Urojet - lidocaine hydrochloride jelly 2% 200mg (20mg/ml) Lidocaine Urojet - lidocaine hydrochloride jelly 2% 200mg (20mg/ml), See Instructions, use as instructed prior to Pizarro installation, # 25 EA, 0 Refill(s), [facility], use as instructed prior to Pizarro installation, Kirk... Start Date: 04/18/18 Status: Ordered Mirena EA, Intrauteral, Once, 0 Refill(s) Start Date: 09/09/16 Status: Ordered morphine 15 mg oral tablet 15 mg = 1 tab(s), Oral, q6hr, PRN PRN for pain, # 10 tab(s), 0 Refill(s), 07/13/19 Start Date: 07/10/19 Stop Date: 07/13/19 Status: Ordered pentosan polysulfate sodium 100 mg oral capsule 100 mg = 1 cap(s), Oral, TIDAC, # 90 cap(s), 0 Refill(s) Start Date: 06/10/19 Status: Ordered sodium bicarbonate 8.4% intravenous solution See Instructions, Use 4 cc when preparing Pizarro Compound, # 50 mL, 3 Refill(s), Pharmacy: [facility], Use 4 cc when preparing Pizarro Compound Start Date: 02/22/17 Status: Ordered Sterile Specimen Cup Sterile Specimen Cup, See Instructions, Use for Preparing Pizarro Compound, # 12 EA, 3 Refill(s), Pharmacy: [facility], Use for Preparing Pizarro Compound, Supply Start Date: 02/22/17 Status: Ordered sterile water irrigation solution See Instructions, Use 18 cc when preparing Pizarro Compound, # 1,000 mL, 6 Refill(s), Pharmacy: [facility], Use 18 cc when preparing Pizarro Compound Start Date: 02/22/17 Status: Ordered Suboxone 12 mg-3 mg sublingual film Sublingual, Daily, 0 Refill(s) Start Date: 01/05/19 Status: Ordered Mental Status 07/10/19 Level of Consciousness Alert Problem List Condition [...] Site Status None Completed Results Radiology Reports true* Exam Date Time Procedure Performing Provider Status 07/10/19 8:45 AM XR Chest 1 View Portable IsakMark eitan Fniley (Verified) Notes: (XR Chest 1 View Portable) Reason For Exam: cough, chest pain h/o pneumonia 6 months ago, also withfall. R/o PNA and pneumothorax. XR Chest 1 View Portable EXAMINATION: XR Chest 1 View Portable CLINICAL HISTORY: cough, chest pain h/o pneumonia 6 months ago, also with fall. R/o PNA and pneumothorax. TECHNIQUE: Portable frontal chest radiograph 07/10/2019 at 0840 hours. COMPARISON: 01/13/2019. FINDINGS: Metallic snaps from patient gown/clothing as well as bilateral nipple piercing jewelry visualized. The right lung is clear. There is streaky linear, hazy nodular, and focal patchy airspace opacity at the left lung base. No appreciable pleural fluid or pneumothorax. Cardiomediastinal silhouette and pulmonary vessel markings within normal limits. No displaced rib fractures are seen, within limits of chest radiography. IMPRESSION: No pneumothorax seen. Streaky, hazy nodular and, patchy opacities at left base. Differential considerations include early/nonconsolidated pneumonia and aspiration pneumonitis. Thank you for letting us participate in the care of this patient. For questions regarding this report, please contact the number below. Final Dictated: 07/10/2019 8:50 am JADA FREDERICK Signed (Electronic Signature): 07/10/2019 8:50 am Signed by: JADA FREDERICK Vital Signs Most recent to oldest [Reference Range]: 1 2 Temperature Temporal [36.3-37.8 DegC] 36 .6 DegC (07/10/19 8:21 AM) Peripheral Pulse Rate [60-100 bpm] 100 b pm (07/10/19 10:19 AM) 106 bpm *HI* (07/10/19 8:21 AM) Respiratory Rate [14-20 br/min] 16 br/mi n (07/10/19 10:19 AM) 18 br/min (07/10/19 8:21 AM) Blood Pressure [90-140/60-90 mmHg] 120/7 9mmHg (07/10/19 10:19 AM) 119/72mmHg (07/10/19 8:21 AM) SpO2 [92-100 %] 97 % (07/10/19 10:19 AM) 97 % (07/10/19 8:21 AM) Height/Length Estimated 165.000 cm (07/10/19 8:21 AM) Height/Length Dosing 165.000 cm (07/10/19 8:32 AM) Weight Estimated 54.400 kg (07/10/19 10:19 AM) 54.400 kg (07/10/19 8:21 AM) Weight Dosing 54.400 kg (07/10/19:19 AM) 54.400 kg (07/10/19 8:32 AM) Social History Social History Type Response Smoking Status 5-9 cigarettes (betw een 1/4 to 1/2 pack)/day in last 30 days entered on: 07/10/19 Sex Female 1did not smoke while Hospital Discharge Instructions Patient Education 07/10/2019 09:59:32 Community-Acquired Pneumonia, Adult Community-Acquired Pneumonia, Adult Your test for COVID19 will take a few days to return results. It is important that you isolate yourself from others until this result is back. Return to the hospital for your condition is worsening and you have severe difficulty breathing or other concerning symptoms. Continue taking the antibiotics. Due to the abnormal appearance of your last pneumonia on the CT scan, follow up with your doctor to make sure that this resolves will be important. Pneumonia is a type of lung infection that causes swelling in the airways of the lungs. Mucus and fluid may also build up inside the airways. This may cause coughing and difficulty breathing. There are different types of pneumonia. One type can develop while a person is in a hospital. A different type is called community-acquired pneumonia. It develops in people who are not, and have not recently been, in the hospital or another type of health care facility. What are the causes? This condition may be caused by: ??? Viruses. This is the most common cause of pneumonia. ??? Bacteria. Community-acquired pneumonia is often caused by Streptococcus pneumoniae bacteria. These bacteria are often passed from one person to another by breathing in droplets from the cough or sneeze of an infected person. ??? Fungi. This is the least common cause of pneumonia. What increases the risk? The following factors may make you more likely to develop this condition: ??? Having a chronic disease, such as chronic obstructive pulmonary disease (COPD), asthma, congestive heart failure, cystic fibrosis, diabetes, or kidney disease. ??? Having early-stage or late-stage HIV. ??? Having sickle cell disease. ??? Having had your spleen removed (splenectomy). ??? Having poor dental hygiene. ??? Having a medical condition that increases the risk of breathing in (aspirating) secretions fromyour own mouth and nose. ??? Having a weakened body defense system (immune system). ??? Being a smoker. ??? Traveling to areas where pneumonia-causing germs commonly exist. ??? Being around animal habitats or animals that have pneumonia-causing germs, including birds, bats, rabbits, cats, and farm animals. What are the signs or symptoms? Symptoms of this condition include: ??? A dry cough. ??? A wet (productive) cough. ??? Fever. ??? Sweating. ??? Chest pain, especially when breathing deeply or coughing. ??? Rapid breathing or difficulty breathing. ??? Shortness of breath. ??? Shaking chills. ??? Fatigue. ??? Muscle aches. How is this diagnosed? This condition may be diagnosed based on: ??? Your medical history. ??? A physical exam. You may also have tests, including: ??? Chest X-rays. ??? Tests of your blood oxygen level and other blood gases. ??? Tests on blood, mucus (sputum), fluid around your lungs (pleural fluid), and urine. If your pneumonia is severe, other tests may be done to find the exact cause of your illness. How is this treated? Treatment for this condition depends on many factors, such as the cause of your pneumonia, the medicines you take, and other medical conditions that you have. For most adults, treatment and recovery from pneumonia may occur at home. In some cases, treatment must happen in a hospital. Treatment may include: ??? Medicines that are given by mouth or through an IV, including: ??? Antibiotic medicines, if the pneumonia was caused by bacteria. ??? Antiviral medicines, if the pneumonia was caused by a virus. ??? Being given extra oxygen. ??? Respiratory therapy. Although rare, treating severe pneumonia may include: ??? Using a machine to help you breathe (mechanical ventilation). This is done if you are not breathing well on your own and you cannot maintain a safe blood oxygen level. ??? Thoracentesis. This is a procedure to remove fluid from around one lung or both lungs to help you breathe better. Follow these instructions at home: Medicines ??? Take [id number] and prescription medicines only as told by your health care provider. ??? Only take cough medicine if you are losing sleep. Be aware that cough medicine can prevent yourbody's natural ability to remove mucus from your lungs. ??? If you were prescribed an antibiotic medicine, take it as told by your health care provider. Donot stop taking the antibiotic even if you start to feel better. General instructions ??? Sleep in a semi-upright position at night. Try sleeping in a reclining chair, or place a few pillows under your head. ??? Rest as needed and get at least 8 hours of sleep each night. ??? Drink enough water to keep your urine pale yellow. This will help to thin out mucus secretions in your lungs. ??? Eat a healthy diet that includes plenty of vegetables, fruits, whole grains, low-fat dairy products, and lean protein. ??? Do not use any products that contain nicotine or tobacco, such as cigarettes, e-cigarettes, andchewing tobacco. If you need help quitting, ask your health care provider. ??? Keep all follow-up visits as told by your health care provider. This is important. How is this prevented? You can lower your risk of developing community-acquired pneumonia by: ??? Getting a pneumococcal vaccine. There are different types and schedules of pneumococcal vaccines. Ask your health care provider which option is best for you. Consider getting the vaccine if: ??? You are older than 65 years of age. ??? You are older than 19 years of age and are undergoing cancer treatment, have chronic lung disease, or have other medical conditions that affect your immune system. Ask your health care provider if this applies to you. ??? Getting an influenza vaccine every year. Ask your health care provider which type of vaccine isbest for you. ??? Getting regular checkups from your dentist. ??? Washing your hands often. If soap and water are not available, use hand account maintenance representative. Contact a health care provider if: ??? [...] immune system. ??? You cough up blood. Summary ??? Pneumonia is an infection of the lungs. ??? Community-acquired pneumonia develops in people who have not been in the hospital. It can be caused by bacteria, viruses, or fungi. ??? This condition may be treated with antibiotics or antiviral medicines. ??? Severe cases may require hospitalization, mechanical ventilation, and other procedures to drainfluid from the lungs. This information is not intended to replace advice given to you by your health care provider. Make sure you discuss any questions you have with your health care provider. Document Released: 03/25/2006 Document Revised: 11/20/2018 Document Reviewed: 11/20/2018 [employer] Patient Education ?? 2019 [employer] Follow Up Care 07/10/2019 08:20:58 With:Tobias Kunz [facility] Address: [facility] [address] [place] [phone] Business (1) When:7 to 10 days
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
--- OUTSIDE RECORDS SUMMARY | 2023-05-12 16:47 | XMS_ITS | Continuity of Care Document ---
Author Name Unknown Organization [facility] Address [address] [place] [address]- Care Team Providers Care Picker Machine Operator Name Role Phone MYA LAWSON Primary Care Physician Encounter BVT Date(s): 12/05/21 - 12/05/[address] [address]- [phone] Encounter Diagnosis Musculoskeletal pain(Discharge Diagnosis) - 12/05/21 Discharge Disposition: Home or Self Care Attending Physician: LINDEN LISA Admitting Physician: LINDEN LISA Allergies, Adverse Reactions, Alerts Substance Reaction Severity Status poison kriss Active amitriptyline Active Assessment and Plan Extracted from: Title:General Medical Problem *ED Author:Sarita LISA Date:12/05/21 History of Present Illness 26-year-old smoker 1/2 pack/day here with a complaint of left flank pain. The patient reports flank pain has been present for the past 2 days. She had some associated nausea without vomiting. She denies any hematuria or dysuria. She has had no fever, rash, or injury to the flank, or abdomen. Last menstrual period was 1 week ago and is described as normal. She denies any vaginal bleeding or discharge. She states that she had some blood streaking on her stool.. Review of Systems Constitutional symptoms: Negative except [...] tab(s), Oral, q6hr, 12 tab(s), 0 Refill(s) propranolol 60 mg oral capsule, extended release: 60 mg = 1 cap(s), Oral, HS, for 90 day(s), 90 cap(s), 1 Refill(s) rizatriptan 10 mg oral tablet: 10 [...] 1,000 mL, 6 Refill(s) Documented Medications Documented clonazePAM 0.5 mg oral tablet: mg, tab(s), Oral, TID, 0 Refill(s) lithium: 0 Refill(s) pentosan polysulfate sodium 100 mg oral capsule: 100 mg = 1 cap(s), Oral, TIDAC, 90 cap(s), 0 Refill(s). Past Medical/ Family/ Social History Medical history: Resolved Pelvic inflammatory disease ([id number]): Resolved on 09/09/2016 at 20 years. Ruptured ovarian cyst ([id number]): Resolved on 09/09/2016 at 20 years. 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 Surgical history: None ([id number]).. Family history: CA - Breast cancer Grandmother [...] . Physical Examination Vital Signs Vital Signs 12/05/2021 9:47 EDT Temperature Temporal Artery 36.1 DegC LOW Peripheral Pulse Rate 79 bpm Respiratory Rate 20 br/min Systolic Blood Pressure 112 mmHg Diastolic Blood Pressure 71 mmHg SpO2 100 % . Measurements 12/05/2021 10:00 EDT Weight Dosing 81.650 kg 12/05/2021 10:00 EDT Height/Length Dosing 170.180 cm 12/05/2021 9:47 EDT Height/Length Estimated 170.180 cm Weight Estimated 81.650 kg . Basic Oxygen Information 12/05/2021 9:47 EDT Oxygen Therapy Room air . Additional physical exam information: Alert, well-developed, well-hydrated, elevated BMI. Vital signs reviewed. Afebrile. HEENT: Conjunctiva clear with no scleral icterus. Pupils are equal and reactive to light. Extraocular muscles full and intact. COR: Heart rate and rhythm regular, no murmur, click, gallop, or rub. Chest: Clear. Abdomen: Bowel sounds present and hyperactive throughout. Soft, nontender, no mass, organomegaly, or rebound. Back: Normal contours. Left costovertebral angle tenderness, right-sided tenderness transmitted to the left side as well. Rectal: Normal tone. Guaiac negative rectal mucus. Extremities: No edema.. Medical Decision Making Notes: Lock established. CBC is normal. UA is normal. Chem-12 is normal. hCG is negative. U tox shows buprenorphine, cocaine, and THC. The patient denies the use of any illicit drugs, and says that she has been off Suboxone for over a year. She was informed of the results as a matter of course. The most likely scenario for her having pain and she describes is musculoskeletal in origin. She will be given instructions for the management of musculoskeletal pain, and she is referred back to primary care for reevaluation.. Reexamination/ Reevaluation Vital signs Basic Oxygen Information 12/05/2021 9:47 EDT Oxygen Therapy Room air Impression and Plan Diagnosis Musculoskeletal pain ([id number] M79.18, Discharge, Medical) Plan Disposition: Discharged: time 12/05/2021 12:53:00. Patient was given the following educational materials: Acute Pain, Adult, Musculoskeletal Pain, Musculoskeletal Pain, Acute Pain, Adult. Follow up with: MYA LUNSFORD [facility] Within 3 to 5 days. Counseled: Patient. Future Appointments Functional Status 12/05/21 Recent Travel History No recent travel Family Member Travel History No recent t ravel COVID-19 Screening None Immunizations Given and Recorded Vaccine Date Status Refusal Reason Tdap 09/25/21 Given Tdap 09/02/09 Recorded HPV 11/11/13 Recorded HPV 7/8/13 Recorded HPV 5/8/13 Recorded Medications 10 cc Syringe 10 cc Syringe, See Instructions, Use for Preparing Pizarro Compound, # 24 EA, 3 Refill(s), Pharmacy: [facility], Use for Preparing Pizarro Compound, Supply Start Date: 02/22/17 Status: Ordered 10 FR Cure Catheter Silicone Urethral 10 FR Cure Catheter Silicone Urethral, See Instructions, Use for Preparing Pizarro Compound, # 12 EA, 3 Refill(s), Pharmacy: [facility], Use for Preparing Pizarro Compound, Supply Start Date: 04/11/18 Status: Ordered 18 gauge 1 1/2 needle 18 gauge 1 1/2 needle, See Instructions, Use for Preparing Pizarro Compound, # 24 EA, 3 Refill(s),Pharmacy: [facility], Use for Preparing Pizarro Compound, Supply Start Date: 02/22/17 Status: Ordered 60cc Catheter Tip Syringe 60cc Catheter Tip Syringe, See Instructions, Use for Preparing Pizarro Compound, # 12 EA, 3 Refill(s), Pharmacy: [facility], Use for Preparing Pizarro Compound, Supply Start Date: 02/22/17 Status: Ordered clonazePAM 0.5 mg oral tablet mg tab(s), Oral, TID, 0 Refill(s) Start Date: 09/09/16 Status: Ordered Elmiron 100 mg oral capsule 100 mg = 1 cap(s), Oral, TID, # 90 cap(s), 6 Refill(s), Pharmacy: [facility], 1 cap(s) Oral TID Start Date: 04/11/18 Status: Ordered lidocaine 2% injectable solution See Instructions, Use 8cc when preparing Pizarro Compound, # 200 mL, 3 Refill(s), Pharmacy: [facility], Use 8cc when preparing Pizarro Compound Start Date: 02/22/17 Status: Ordered Lidocaine Urojet - lidocaine hydrochloride jelly 2% 200mg (20mg/ml) Lidocaine Urojet - lidocaine hydrochloride jelly 2% 200mg (20mg/ml), See Instructions, use as instructed prior to Pizarro installation, # 25 EA, 0 Refill(s), Pharmacy: [facility], use as instructed prior to Pizarro installation, Kirk... Start Date: 04/18/18 Status: Ordered lithium 0 Refill(s) Start Date: 12/05/21 Status: Ordered pentosan polysulfate sodium 100 mg oral capsule 100 mg = 1 cap(s), Oral, TIDAC, # 90 cap(s), 0 Refill(s) Start Date: 06/10/19 Status: Ordered Phenergan 25 mg rectal suppository 25 mg = 1 supp, Per rectum, q6hr, # 12 supp, 0 Refill(s), Pharmacy: [facility], 1 supp Per rectum q6hr, 165, cm, 11/23/20 12:19:00 EDT, Height/Length Dosing, 81.65, kg, 11/23/20 12:19:00 EDT, Weight Dosing Start Date: 11/23/20 Status: Ordered promethazine 25 mg oral tablet 25 mg = 1 tab(s), Oral, q6hr, # 12 tab(s), 0 Refill(s), Pharmacy: [facility], 1 tab(s) Oral q6hr, 165, cm, 11/23/20 12:19:00 EDT, Height/Length Dosing, 81.65, kg, 11/23/20 12:19:00EDT, Weight Dosing Start Date: 11/23/20 Status: Ordered propranolol 60 mg oral capsule, extended release 60 mg = 1 cap(s), Oral, HS, # 90 cap(s), 1 Refill(s), Pharmacy: [email or web address] [facility], 1 cap(s) Oral HS,x90 day(s), 165, cm, 06/18/21 15:04:00 EDT, Height/Length Dosing, 81.5, kg, 06/18/21 15:04:00 EDT, Weight Dosing Start Date: 08/18/21 Stop Date: 02/14/22 Status: Ordered rizatriptan 10 mg oral tablet 10 mg = 1 tab(s), Oral, Daily, Take 1 tablet at onset of migraine. May repeat dose once in 2 hours.Do not take more than 2 tablets within 24 hour period., # 9 tab(s), 1 Refill(s), Pharmacy: [email or web address], 1 tab(s) Oral Daily,Instr:Brandon... Start Date: 05/01/21 Status: Ordered sodium bicarbonate 8.4% intravenous solution See Instructions, Use 4 cc when preparing Pizarro Compound, # 50 mL, 3 Refill(s), Pharmacy: [facility], Use 4 cc when preparing Pizarro Compound Start Date: 02/22/17 Status: Ordered Sterile Specimen Cup Sterile Specimen Cup, See Instructions, Use for Preparing Pizarro Compound, # 12 EA, 3 Refill(s), Pharmacy: [facility], Use for Preparing Pizarro Compound, Supply Start Date: 02/22/17 Status: Ordered sterile water irrigation solution See Instructions, Use 18 cc when preparing Pizarro Compound, # 1,000 mL, 6 Refill(s), Pharmacy: [facility], Use 18 cc when preparing Pizarro Compound Start Date: 02/22/17 Status: Ordered Problem List Condition Effective Dates [...] None Completed Results Laboratory List Name Date Fentanyl Level 12/05/21 Test Urine Standard 12/05/21 Urinalysis with Culture, if indicated St [facility] 12/05/21 Urine Drug Screen Standard 12/05/21 Amylase Level 12/05/21 Automated Differential Standard 12/05/21 CBC w/Diff Standard 12/05/21 Comprehensive Metabolic Panel Standard ( CMP Standard) 12/05/21 Lipase Level 12/05/21 Most recent to oldest [Reference Range]: 1 Urine Culture? No (12/05/21 10:46 AM) U Buprenorphine Scr [Negative] Positive *ABN* (12/05/21 10:46 AM) NRBC Auto Pct [0.00-0.20 %] 0.00 % (12/05/21 10:27 AM) Creatinine [0.50-0.90 mg/dL] 0.58 mg/dL (12/05/21 10:27 AM) U Benzodia Scr [Negative] Negative (12/05/21 10:46 AM) UA Bili SMALL *NA* (12/05/21 10:46 AM) UA Blood [NEGATIVE] NEGATIVE (12/05/21 10:46 AM) U Cocaine Scr [Negative] Positive *ABN* (12/05/21 10:46 AM) UA Color YELLOW *NA* (12/05/21 10:46 AM) UA Glucose [Negative] NEGATIVE *NA* (12/05/21 10:46 AM) UA Ketones TRACE *NA* (12/05/21 10:46 AM) UA Leuk Est [NEGATIVE] NEGATIVE (12/05/21 10:46 AM) UA Nitrite [NEGATIVE] NEGATIVE (12/05/21 10:46 AM) U Opiate Scr [Negative] Negative (12/05/21 10:46 AM) U PCP Scr [Negative] Negative (12/05/21 10:46 AM) UA Protein [NEGATIVE] NEGATIVE (12/05/21 10:46 AM) UA Urobilinogen [<1.0 mg/dL] 0.2 EU/dL (12/05/21 10:46 AM) U Amph Scr [Negative] Negative (12/05/21 10:46 AM) U Jessica Scr [Negative] Negative (12/05/21 10:46 AM) AGAP [10.0-18.0 mmol/L] 14.3 mmol/L (12/05/21 10: AM) Glucose Lvl [70-100 mg/dL] 89 mg/dL (12/05/21 10: AM) Hct [34.1-44.9 %] 39.9 % (12/05/21 10: AM) Hgb [11.5-15.7 gm/dL] 13.8 gm/dL (12/05/21 10: AM) Lipase Lvl [13-60 IntUnit/L] 17 IntUnit/ L (12/05/21: AM) Lymph Auto [15.0-45.0 %] 25.3 % (12/05/21: AM) MCH [25.6-32.2 pg] 32.8 pg *HI* (12/05/21: AM) MCHC [32.3-36.5 gm/dL] 34.6 gm/dL (12/05/21 10: AM) MCV [79.4-94.8 fL] 94.8 fL (12/05/21: AM) Edmonson Auto [4.0-14.0 %] 5.6 % (12/05/21 10: AM) MPV [9.4-12.4 fL] 10.8 fL (12/05/21: AM) Neutro Auto [50.0-75.0 %] 61.9 % (12/05/21 10: AM) Osmolality [268.0-291.0 mOsm/kg] 274.6 m Osm/kg (12/05/21 10: AM) Platelet [150-400 x10(3)/uL] 302 x10(3)/ uL (12/05/21 10:27 AM) RBC [3.93-5.22 x10(6)/uL] 4.21 x10(6)/uL (12/05/21 10:27 AM) Sodium Lvl [136-145 mmol/L] 138 mmol/L (12/05/21 10:27 AM) Total Protein [6.6-8.7 gm/dL] 7.1 gm/dL (12/05/21 10:27 AM) UA pH [4.6-8.0] 7.0 (12/05/21 10:46 AM) Albumin Lvl [3.50-5.20 gm/dL] 4.40 gm/dL (12/05/21 10:27 AM) Alk Phos [35-105 IntUnit/L] 67 IntUnit/L (12/05/21 10:27 AM) ALT [0-33 IntUnit/L] 25 IntUnit/L (12/05/21 10:27 AM) Amylase Lvl [28-100 IntUnit/L] 33 IntUni t/L (12/05/21 10: AM) AST [0-32 IntUnit/L] 22 IntUnit/L (12/05/21 10:27 AM) Basophil Auto [0.0-2.0 %] 1.0 % (12/05/21: AM) Bili Total [0.0-1.3 mg/dL] 0.3 mg/dL (12/05/21 10:27 AM) CO2 [22-29 mmol/L] 25 mmol/L (12/05/21: AM) Eos Auto [0.0-8.0 %] 5.9 % (12/05/21 10: AM) UA Spec Grav [1.000-1.035] 1.015 (12/05/21 10:46 AM) WBC [4.0-10.0 x10(3)/uL] 7.1 x10(3)/uL (12/05/21 10:27 AM) BUN [6-23 mg/dL] 11 mg/dL (12/05/21 10:27 AM) Calcium Lvl [8.6-10.2 mg/dL] 8.8 mg/dL (12/05/21 10:27 AM) Chloride [98-107 mmol/L] 103 mmol/L (12/05/21 10:27 AM) Potassium Lvl [3.5-5.1 mmol/L] 4.3 mmol/ L (12/05/21 10:27 AM) Micro? [Not Indicated] Not Indicated (12/05/21 10:46 AM) Lymph Absolute [1.20-3.70 x10(3)/uL] 1.8 0 x10(3)/uL (12/05/21 10:27 AM) Edmonson Absolute [0.20-0.40 x10(3)/uL] 0.40 x10(3)/uL (12/05/21 10:27 AM) Eos Absolute [0.04-0.54 x10(3)/uL] 0.42 x10(3)/uL (12/05/21 10:27 AM) NRBC Absolute [0.00-0.01 x10(3)/uL] 0.00 x10(3)/uL (12/05/21 10:27 AM) UA Clarity CLEAR *NA* (12/05/21 10:46 AM) U TCA Scr [Negative] Negative (12/05/21 10:46 AM) Neutro Absolute [1.56-6.13 x10(3)/uL] 4. 41 x10(3)/uL (12/05/21 10:27 AM) RDW-CV [11.7-14.4 %] 13.2 % (12/05/21 10:27 AM) GFR NonAfrican Tristanian [>=60 mL/min/1.7 3 m2] 127 mL/min/1.73 m2 (12/05/21 10:27 AM) U mAMP Scr [Negative] Negative (12/05/21 10:46 AM) U OXY Scr [Negative] Negative (12/05/21 10:46 AM) U PPX Scr [Negative] Negative (12/05/21 10:46 AM) Fentanyl Interp [Negative] Negative (12/05/21 10:46 AM) U THC Scr [Negative] Positive *ABN* (12/05/21 10:46 AM) U Methadone Scr [Negative] Negative (12/05/21 10:46 AM) Human Chorionic Gonadotropin Qualitative Negative (12/05/21 10:46 AM) Immature Gran % [0.00-2.30 %] 0.30 % (12/05/21 10:27 AM) Immature Gran Absolute 0.02 x10(3)/uL *NA* (12/05/21 10:27 AM) Basophil Absolute [0.00-0.10 x10(3)/uL] 0.07 x10(3)/uL (12/05/21 10:27 AM) Vital Signs Most recent to oldest [Reference Range]: 1 Temperature Temporal Artery [36.3-37.8 D egC] 36.1 DegC *LOW* (12/05/21 9:47 AM) Peripheral Pulse Rate [60-100 bpm] 79 bp m (12/05/21 9:47 AM) Respiratory Rate [14-20 br/min] 20 br/mi n (12/05/21 9:47 AM) Blood Pressure [90-140/60-90 mmHg] 112/7 1mmHg (12/05/21 9:47 AM) SpO2 [92-100 %] 100 % (12/05/21 9:47 AM) Height/Length Estimated 170.180 cm (12/05/21 9:47 AM) Height/Length Dosing 170.180 cm (12/05/21 10:00 AM) Weight Estimated 81.650 kg (12/05/21 9:47 AM) Weight Dosing 81.650 kg (12/05/21 10:00 AM) Social History Social History Type Response Tobacco Current everyday tob acco user Tobacco Use:. 1/2 ppd per day. Sex Female Hospital Discharge Instructions Patient Education 12/05/2021 13:05:59 Musculoskeletal Pain Musculoskeletal Pain Musculoskeletal pain refers to aches and pains in your bones, joints, muscles, and the tissues thatsurround them. This pain can occur in any part of the body. It can last for a short time (acute) ora long time (chronic). A physical exam, lab tests, and imaging studies may be done to find the cause of your musculoskeletal pain. Follow these instructions at home: Lifestyle ??? Try to control or lower your stress levels. Stress increases muscle tension and can worsen musculoskeletal pain. It is important to recognize when you are anxious or stressed and learn ways to manage it. This may include: ??? Meditation or yoga. ??? Cognitive or behavioral therapy. ??? Acupuncture or massage therapy. ??? You may continue all activities unless the activities cause more pain. When the pain gets better, slowly resume your normal activities. Gradually increase the intensity and duration of your activities or exercise. Managing pain, stiffness, and swelling ??? Treatment may include medicines for pain and inflammation that are taken by mouth or applied tothe skin. Take bvfd-xbz-edfaqut and prescription medicines only as told by your health care provider. ??? When your pain is severe, bed rest may be helpful. Lie or sit in any position that is comfortable, but get out of bed and walk around at least every couple of hours. ??? If directed, apply heat to the affected area as often as told by your health care provider. Usethe heat source that your health care provider recommends, such as a moist heat pack or a heating pad. ??? Place a towel between your skin and the heat source. ??? Leave the heat on for 20???30 minutes. ??? Remove the heat if your skin turns bright red. This is especially important if you are unable to feel pain, heat, or cold. You may have a greater risk of getting burned. ??? If directed, put ice on the painful area. To do this: ??? Put ice [...] greater risk of damage to the area. General instructions ??? Your health care provider may recommend that you see a physical therapist. This person can helpyou come up with a safe exercise program. ??? If told by your health care provider, do physical therapy exercises to improve movement and strength in the affected area. ??? Keep all follow-up visits. This is important. This includes any physical therapy visits. Contact a health care provider if: ??? Your pain gets worse. ??? Medicines do not help ease your pain. ??? You cannot use the part of your body that hurts, such as your arm, leg, or neck. ??? You have trouble sleeping. ??? You have trouble doing your normal activities. Get help right away if: ??? You have a new injury and your pain is worse or different. ??? You feel numb or you have tingling in the painful area. Summary ??? Musculoskeletal pain refers to aches and pains in your bones, joints, muscles, and the tissues that surround them. ??? This pain can occur in any part of the body. ??? Your health care provider may recommend that you see a physical therapist. This person can helpyou come up with a safe exercise program. Do any exercises as told by your physical therapist. ??? Lower your stress level. Stress can worsen musculoskeletal pain. Ways to lower stress may include meditation, yoga, cognitive or behavioral therapy, acupuncture, and massage therapy. This information is not intended to replace advice given to you by your health care provider. Make sure you discuss any questions you have with your health care provider. Document Revised: 07/28/2020 Document Reviewed: 07/06/2020 [employer] Patient Education ?? 2021 [employer] Cold packs or moist heat, whichever feels better to you can be used as desired and effective. Therapeutic massage may help. Cervical pillow and foam leg wedge to flex the knees in bed. Dog bone shaped foam block between theknees to side sleep. Do not sleep on your abdomen. Tylenol 500 mg, take 2 every 6 hours as needed for pain. Advil 200 mg, take 2 every 6 hours for additional pain control with food. Taking additional Advil beyond 400 mg will not provide greater pain relief but may provide more side effects. Primary care follow-up in a few days is recommended. 12/05/2021 13:05:59 Acute Pain, Adult Acute Pain, Adult Acute pain is a type of sudden pain that may last for just a few days or for as long as six months.It is often related to an illness, injury, or medical procedure. Acute pain may be mild, moderate, or severe. Pain can make it hard for you to do your normal, daily activities. It can cause anxiety and lead toother problems if it is left untreated. Treatment depends on the cause and severity of your pain. Acute pain usually goes away once your injury has healed or you are no longer ill. Follow these instructions at home: Medicines ??? Take hsau-ddy-plspckn and prescription medicines only as told by your health care provider. ??? Take the lowest dose of medicine for the shortest amount of time needed to relieve the pain. ??? If you are taking prescription pain medicine: ??? Do not stop taking the medicine suddenly. Talk to your health care provider about how and when to discontinue prescription medicine. ??? Do not take more pills than told by your health care provider even if your pain is severe. ??? Do not take other xaby-szd-bmrwzlt pain medicines in addition to prescription pain medicine unless told by your health care provider. ??? Ask your health care provider if the medicine requires you to avoid driving or using heavy machinery. ??? Ask your health care provider if the medicine can cause constipation. You may need to take these actions to prevent or treat constipation: ??? Drink enough fluid to keep your urine pale yellow. ??? Eat foods that are high in fiber, such as beans, whole grains, and fresh fruits and vegetables. ??? Take iidi-ahi-hugzdsk or prescription medicines. ??? Limit foods that are high in fat and processed sugars, such as fried or sweet foods. Managing pain, stiffness, and swelling If directed, put ice on the affected area. To do this: ??? Put ice in a plastic bag. ??? Place a towel between your skin and the bag. ??? Leave the ice on for 20 minutes, 2???3 times a day. If directed, apply heat to the affected area as often as told by your health care provider. Use theheat source that your health care provider recommends, such as a moist heat pack or a heating pad. ??? Place a towel between your skin and the heat source. ??? Leave the heat on for 20???30 minutes. ??? Remove the heat if your skin turns bright red. This is especially important if you are unable to feel pain, heat, or cold. You may have a greater risk of getting burned. Activity ??? Rest as told by your health care provider. ??? Return to your normal activities as told by your health care provider. Ask your health care provider what activities are safe for you. General instructions ??? Check your pain level as told by your health care provider. ??? Ask your health care provider if other strategies such as distraction, relaxation, or physical therapies can help your pain. ??? Keep all follow-up visits as told by your health care provider. This is important. Contact a health care provider if: ??? Your pain is not controlled by medicine. ??? Your pain does not improve or gets worse. ??? You have side effects from pain medicines, such as vomiting or confusion. Get help right away if you: ??? Have severe pain. ??? Have trouble breathing. ??? Lose consciousness. ??? Have chest pain or pressure that lasts for more than a few minutes, or if you have other symptoms along with chest pain, including if you: ??? Have pain or discomfort in one or both arms, your back, neck, jaw, or stomach. ??? Have shortness of breath. ??? Break out in a cold sweat. ??? Feel nauseous. ??? Become light-headed. These symptoms may represent a serious problem that is an emergency. Do not wait to see if the symptoms will go away. Get medical help right away. Call your local emergency services (911 in the [place] Do not drive yourself to the hospital. Summary ??? Acute pain may be mild, moderate, or severe. It usually goes away once your injury has healed or you are no longer ill. ??? Take brdk-fxi-zadrmnu and prescription medicines only as told by your health care provider. ??? Ask your health care provider if the medicine prescribed to you can cause constipation. ??? Contact a health care provider if your pain is not controlled by medicine. This information is not intended to replace advice given to you by your health care provider. Make sure you discuss any questions you have with your health care provider. Document Revised: 08/10/2019 Document Reviewed: 08/10/2019 [employer] Patient Education ?? 2021 [employer] Follow Up Care 12/05/2021 09:45:02 With:MYA LUNSFORD [facility] Address: [facility] [address] [place] [address]- Business (1) When:3 to 5 days Patient Care team information Personnel Name: [facility] Address: Address: [facility] [address] [address] [place] [address]-
--- OUTSIDE RECORDS SUMMARY | 2023-05-12 16:47 | XMS_ITS | Continuity of Care Document ---
Author Name Unknown Organization [facility] Address [address] [place] [id number]- Care Team Providers Care Schedule Analyst Name Role Phone [place] Primary Care Physician Tony blevins Encounter [facility] [id number] Date(s): 07/12/19 - 07/12/[address] [address]- Encounter Diagnosis Acute costochondritis(Discharge Diagnosis) - 07/12/19 Pneumonia(Discharge Diagnosis) - 07/12/19 Substance use disorder(Discharge Diagnosis) - 07/12/19 Abdominal pain(Discharge Diagnosis) - 07/12/19 Severe anxiety(Discharge Diagnosis) - 07/12/19 Discharge Disposition: Against Medical Advice Attending Physician: Mickey Altamirano Admitting Physician: Mickey Altamirano Allergies, Adverse Reactions, Alerts Substance Reaction Severity Status poison kriss Active amitriptyline Active Assessment and Plan Extracted from: Title:abdomininal pain, bila teral posterior rib pain, pneuomonia Author:Mickey Altamirano Date:07/12/19 History of Present Illness 23-year-old female with history of severe anxiety recent pneumonia per ED visit 07/10/2019, 2 days ago, presents with increasing bilateral posterior thoracic rib discomfort. 06/2019 with left lower lobe pneumonia. Discharged with 50 mg morphine every 6 hours as needed for 10 tablets for pain. Also prescribed doxycycline at discharge. States that her cough continues, mild. Taking medication as prescribed. States that overall she feels well. Clarified that she does not feel sick multiple times. Chief complaint is pain. Patient presents today stating 1 day ago symptoms of bilateral lower back pain worsened. Most pronounced on the right and left. Also notes chronic cystitis causing bouts of increased urinary frequency alternating with decreased urinary frequency. States this is not of her norm. She does endorse discomfort with urinating that is increased recently. Describes intermittent chills and increased warmth, no measured fever. Denies nausea vomiting, change in bowel movements. Denies: Domestic abuse. States pain not well maintained controlled with morphine, per pt history. Review of Systems Eye: Negative except as documented in history of present illness. Ear/Nose/Mouth/Throat: Negative except as documented in history of present illness. Respiratory: Negative except as documented in history of present illness. Cardiovascular: Negative except as documented in history of present illness. Gastrointestinal: Abdominal pain. Genitourinary: Negative except as documented in history of present illness. Musculoskeletal: Back pain. Integumentary: Negative. Neurologic: Negative. Psychiatric: Anxiety. ROS reviewed as documented in chart Health Status Allergies: Allergic Reactions (All) Severity Not Documented Amitriptyline- No reactions were documented. Poison kriss- No reactions were documented. Canceled/Inactive Reactions (All) No Known Medication Allergies, Allergies (2) Active Reaction amitriptyline None Documented poison kriss None Documented Current medications: (Selected) Prescriptions Prescribed 10 FR Cure Catheter [...] preparing Pizarro Compound, 200 mL, 3 Refill(s) morphine 15 mg oral tablet: 15 mg = 1 tab(s), Oral, q6hr, PRN: for pain, 10 tab(s), 0 Refill(s) sodium bicarbonate 8.4% intravenous [...] 1 cap(s), Oral, TIDAC, 90 cap(s), 0 Refill(s), Home Medications (16) Active 10 cc Syringe See Instructions 10 FR Cure Catheter Silicone Urethral See Instructions 18 gauge 1 1/2 needle See Instructions 60cc Catheter Tip Syringe See Instructions clonazePAM 0.5 mg oral tablet , Oral, TID Elmiron 100 mg oral capsule 100 mg = 1 cap(s), Oral, TID Hyophen oral tablet 1 tab(s), Oral, QID lidocaine 2% injectable solution See Instructions Lidocaine Urojet - lidocaine hydrochloride jelly 2% 200mg (20mg/ml) See Instructions Mirena , Intrauteral, Once morphine 15 mg oral tablet 15 mg = 1 tab(s), PRN, Oral, q6hr pentosan polysulfate sodium 100 mg oral capsule 100 mg = 1 cap(s), Oral, TIDAC sodium bicarbonate 8.4% intravenous solution See Instructions Sterile Specimen Cup See Instructions sterile water irrigation solution See Instructions Suboxone 12 mg-3 mg sublingual film , Sublingual, Daily Problem list (past medical history): All Problems Abdominal pain / [id number] / Confirmed Depression / 3592719172 / Confirmed Insomnia / 701741701 / Confirmed Irregular bleeding / 049411966 / Confirmed IC (interstitial cystitis) / 536171293 / Confirmed Bacteriuria / 384838157 / Confirmed Severe anxiety / 302668534 / Confirmed Acute UTI / 6413518168 / Confirmed Gross hematuria / 091913307 / Confirmed Urinary hesitancy / 81584964 / Confirmed Female pelvic pain / 6014257981 / Confirmed Overactive bladder / 5925142230 / Confirmed Vaginal discharge / 059776496 / Confirmed Pyuria / 5732858 / Confirmed Panic disorder without agoraphobia / 40395658 / Confirmed Pneumonia / 380493719 / Confirmed Asthma / 538491923 / Confirmed Acute costochondritis / 9190105000 / Confirmed Anxiety / 2284797489 / Confirmed Substance use disorder / 2022840504 / Confirmed Chronic pain / 647348516 / Confirmed Resolved: Pelvic inflammatory disease / 382688169 Resolved: Ruptured ovarian cyst / 405529014 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, Active Problems (21) Abdominal pain Acute costochondritis Acute UTI Anxiety Asthma Bacteriuria Chronic pain Depression Female pelvic pain Gross hematuria IC (interstitial cystitis) Insomnia Irregular bleeding Overactive bladder Panic disorder without agoraphobia Pneumonia Pyuria Severe anxiety Substance use disorder Urinary hesitancy Vaginal discharge Physical Examination VS/Measurements Vital Signs 07/12/2019 16:11 EDT Temperature Temporal 35.9 DegC LOW Peripheral Pulse Rate 118 bpm HI Respiratory Rate 22 br/min HI SpO2 98 % , Measurements from flowsheet : Measurements 07/12/2019 16:14 EDT Weight Dosing 52.400 kg 07/12/2019 16:14 EDT Height/Length Dosing 168.000 cm 07/12/2019 16:11 EDT Height/Length Estimated 168.000 cm Weight Estimated 52.400 kg General: Alert and oriented, Mild distress. Eye: Pupils are equal, round and reactive to light, Extraocular movements are intact, Normal conjunctiva. Respiratory: Does not describe discomfort with taking deep breaths. Left lower lung sounds harsh. No crackles no wheezing.. Cardiovascular: Regular rhythm, No murmur, Heart rate elevated 100 to 106 on recheck. Fluctuates corresponding with discomfort.. Gastrointestinal: Normal bowel sounds, Diffuse abdominal pain. Most pronounced left lower quadrant, right lower quadrant. Not significant suprapubic. Right upper quadrant discomfort on palpation. Mild discomfort left upper quadrant.. Genitourinary: Bilateral CVA tenderness on percussion. Most pronounced on right side.. Musculoskeletal: Discomfort palpation/percussion bilateral posterior/inferior ribs.. Integumentary: Warm, Dry, Page, Intact, No pallor, No rash, No ecchymosis.. Neurologic: Alert, Oriented. Cognition and Speech: Oriented, Speech clear and coherent, Functional cognition intact. Psychiatric: Cooperative, Appropriate mood & affect. Impression and Plan Diagnosis Cough (PNED [id number]). Abdominal pain (TRP24-QU R10.9). Severe anxiety (AWZ32-UG F41.9). Pneumonia (GCD41-JA J18.9). Acute costochondritis (RBV97-KX M94.0). Substance use disorder (AIU67-MM F19.90). Course: Unchanged, HR normalized at end of visit.. Patient Instructions: LEFT AMA. Counseled: Patient. Summary: PT left AMA, acknowledging risk of worsening injury or infection. Left prior to CT abd pelvis/ chest. AMA paper signed. Pt agrees to return if symptoms worsen. Agrees to call PCP tomorros for follow up.. Diagnosis Abdominal pain, bilateral flank pain/ rib pain, anxiety, pneumonia.. Course: Progressing as expected. Orders PT left AMA, acknowledging risk of worsening injury or infection. Left prior to CT abd pelvis/ chest. AMA paper signed. Pt agrees to return if symptoms worsen. Agrees to call PCP tomorros for follow up.. Dx/Order Association Plan Immunizations Given and Recorded Vaccine Date Status Refusal Reason HPV 02/16/13 Recorded HPV 8 Recorded HPV 08/13/12 Recorded Tdap 09/02/09 Recorded Medications 10 cc Syringe 10 cc Syringe, See Instructions, Use for Preparing Pizarro Compound, # 24 EA, 3 Refill(s), Pharmacy: [facility], Use for Preparing Pizarro Compound, Supply Start Date: 02/22/17 Status: Ordered 10 FR Cure Catheter Silicone Urethral 10 FR Cure Catheter Silicone Urethral, See Instructions, Use for Preparing Pizarro Compound, # 12 EA, 3 Refill(s), Pharmacy: [facility], Use for Preparing Pizarro Compound, Supply Start Date: 04/11/18 Status: Ordered 18 gauge 1 1/2 needle 18 gauge 1 1/2 needle, See Instructions, Use for Preparing Pizarro Compound, # 24 EA, 3 Refill(s),Pharmacy: [facility], Use for Preparing Pizarro Compound, Supply Start Date: 02/22/17 Status: Ordered 60cc Catheter Tip Syringe 60cc Catheter Tip Syringe, See Instructions, Use for Preparing Pizarro Compound, # 12 EA, 3 Refill(s), Pharmacy: [facility], Use for Preparing Pizarro Compound, Supply Start Date: 02/22/17 Status: Ordered clonazePAM 0.5 mg oral tablet mg tab(s), Oral, TID, 0 Refill(s) Start Date: 09/09/16 Status: Ordered Elmiron 100 mg oral capsule 100 mg = 1 cap(s), Oral, TID, # 90 cap(s), 6 Refill(s), Pharmacy: [facility], 1 cap(s) Oral TID Start Date: 04/11/18 Status: Ordered Hyophen oral tablet 1 tab(s), Oral, QID, # 120, 11 Refill(s) Start Date: 02/06/17 Status: Ordered lidocaine 2% injectable solution See Instructions, Use 8cc when preparing Pizarro Compound, # 200 mL, 3 Refill(s), Pharmacy: [facility], Use 8cc when preparing Pizarro Compound Start Date: 02/22/17 Status: Ordered Lidocaine Urojet - lidocaine hydrochloride jelly 2% 200mg (20mg/ml) Lidocaine Urojet - lidocaine hydrochloride jelly 2% 200mg (20mg/ml), See Instructions, use as instructed prior to Pizarro installation, # 25 EA, 0 Refill(s), [facility]acy: [facility] #, use as instructed [...] Compound, # 50 mL, 3 Refill(s), Pharmacy: [facility], Use 4 cc when preparing Pizarro Compound Start Date: 02/22/17 Status: Ordered Sterile Specimen Cup Sterile Specimen Cup, See Instructions, Use for Preparing Pizarro Compound, # 12 EA, 3 Refill(s), Pharmacy: [facility], Use for Preparing Pizarro Compound, Supply Start Date: 02/22/17 Status: Ordered sterile water irrigation solution See Instructions, Use 18 cc when preparing Pizarro Compound, # 1,000 mL, 6 Refill(s), Pharmacy: [facility], Use 18 cc when preparing Pizarro Compound Start Date: 02/22/17 Status: Ordered Suboxone 12 mg-3 mg sublingual film Sublingual, Daily, 0 Refill(s) Start Date: 01/05/19 Status: Ordered Mental Status 07/12/19 Level of Consciousness Alert Problem List Condition [...] Laboratory List Name Date Automated Differential Standard 07/12/19 CBC w/Diff Standard 07/12/19 Comprehensive Metabolic Panel Standard ( CMP Standard) 07/12/19 Fentanyl Level 07/12/19 Test Urine Standard (Urine Pre gnancy Test Standard) 07/12/19 Urinalysis with Culture, if indicated [facility] 07/12/19 Urine Drug Screen Standard (Drug Screen Urine) 07/12/19 Most recent to oldest [Reference Range]: 1 Urine Culture? No (07/12/19 4:55 PM) U Buprenorphine Scr [Negative] Negative (07/12/19 4:55 PM) NRBC Auto Pct [0.00-0.20 %] 0.00 % (07/12/19 6:00 PM) Creatinine [0.50-0.90 mg/dL] 0.58 mg/dL (07/12/19 6:00 PM) U Benzodia Scr [Negative] Negative (07/12/19 4:55 PM) UA Bili [Negative] Negative (07/12/19 4:55 PM) UA Blood [Negative] Negative (07/12/19 4:55 PM) U Cocaine Scr [Negative] Negative (07/12/19 4:55 PM) UA Color Yellow (07/12/19 4:55 PM) UA Glucose [Negative] Negative (07/12/19 4:55 PM) UA Ketones [Neg] Neg (07/12/19 4:55 PM) UA Leuk Est [Negative] Negative (07/12/19 4:55 PM) UA Nitrite [Negative] Negative (07/12/19 4:55 PM) U Opiate Scr [Negative] Positive *ABN* (07/12/19 4:55 PM) U PCP Scr [Negative] Negative (07/12/19 4:55 PM) UA Protein [Negative] Negative (07/12/19 4:55 PM) UA Urobilinogen Negative (07/12/19 4:55 PM) U Amph Scr [Negative] Negative (07/12/19 4:55 PM) U Jessica Scr [Negative] Negative (07/12/19 4:55 PM) AGAP [10.0-18.0 mmol/L] 19.2 mmol/L *HI* (07/12/19 6:00 PM) Glucose Lvl [70-100 mg/dL] 129 mg/dL *HI* (07/12/19 6:00 PM) Hct [34.1-44.9 %] 43.1 % (07/12/19 6:00 PM) Hgb [11.5-15.7 gm/dL] 15.1 gm/dL (07/12/19 6:00 PM) Lymph Auto [15.0-45.0 %] 7.3 % *LOW* (07/12/19 6:00 PM) MCH [25.6-32.2 pg] 31.1 pg (07/12/19 6:00 PM) MCHC [32.3-36.5 gm/dL] 35.0 gm/dL (07/12/19 6:00 PM) MCV [79.4-94.8 fL] 88.7 fL (07/12/19 6:00 PM) [place] Auto [4.0-14.0 %] 0.6 % *LOW* (07/12/19 6:00 PM) MPV [9.4-12.4 fL] 9.6 fL (07/12/19 6:00 PM) Neutro Auto [50.0-75.0 %] 90.1 % *HI* (07/12/19 6:00 PM) Osmolality [268.0-291.0 mOsm/kg] 276.8 m Osm/kg (07/12/19 6:00 PM) Platelet [150-400 x10(3)/uL] 514 x10(3)/ uL *HI* (07/12/19 6:00 PM) RBC [3.93-5.22 x10(6)/uL] 4.86 x10(6)/uL (07/12/19 6:00 PM) Sodium Lvl [136-145 mmol/L] 138 mmol/L (07/12/19 6:00 PM) Total Protein [6.6-8.7 gm/dL] 8.1 gm/dL (07/12/19 6:00 PM) UA pH 8.0 (07/12/19 4:55 PM) Albumin Lvl [3.50-5.20 gm/dL] 4.50 gm/dL (07/12/19 6:00 PM) Alk Phos [35-105 IntUnit/L] 100 IntUnit/ L (07/12/19 6:00 PM) ALT [0-33 IntUnit/L] 52 IntUnit/L *HI* (07/12/19 6:00 PM) AST [0-32 IntUnit/L] 21 IntUnit/L (07/12/19 6:00 PM) Basophil Auto [0.0-2.0 %] 0.2 % (07/12/19 6:00 PM) Bili Total [0.0-1.3 mg/dL] 0.4 mg/dL (07/12/19 6:00 PM) CO2 [22-29 mmol/L] 25 mmol/L (07/12/19 6:00 PM) Eos Auto [0.0-8.0 %] 0.0 % (07/12/19 6:00 PM) UA Spec Grav 1.015 (07/12/19 4:55 PM) WBC [4.0-10.0 x10(3)/uL] 16.0 x10(3)/uL *HI* (07/12/19 6:00 PM) BUN [6-23 mg/dL] 11 mg/dL (07/12/19 6:00 PM) Calcium Lvl [8.6-10.2 mg/dL] 9.8 mg/dL (07/12/19 6:00 PM) Chloride [98-107 mmol/L] 98 mmol/L (07/12/19 6:00 PM) Potassium Lvl [3.5-5.1 mmol/L] 4.2 mmol/ L (07/12/19 6:00 PM) Micro? [Not Indicated] Not Indicated (07/12/19 4:55 PM) Lymph Absolute [1.20-3.70 x10(3)/uL] 1.1 6 x10(3)/uL *LOW* (07/12/19 6:00 PM) [place] Absolute [0.20-0.40 x10(3)/uL] 0.10 x10(3)/uL *LOW* (07/12/19 6:00 PM) Eos Absolute [0.04-0.54 x10(3)/uL] 0.00 x10(3)/uL *LOW* (07/12/19 6:00 PM) NRBC Absolute [0.00-0.01 x10(3)/uL] 0.00 x10(3)/uL (07/12/19 6:00 PM) UA Clarity Clear (07/12/19 4:55 PM) U TCA Scr [Negative] Negative (07/12/19 4:55 PM) Neutro Absolute [1.56-6.13 x10(3)/uL] 14 .42 x10(3)/uL *HI* (07/12/19 6:00 PM) RDW-CV [11.7-14.4 %] 13.0 % (07/12/19 6:00 PM) GFR >60 mL/min/1.73 m2 *NA* (07/12/19 6:00 PM) GFR NonAfrican Japanese >60 mL/min/1.73 m2 *NA* (07/12/19 6:00 PM) U mAMP Scr [Negative] Negative (07/12/19 4:55 PM) U OXY Scr [Negative] Negative (07/12/19 4:55 PM) U PPX Scr [Negative] Negative (07/12/19 4:55 PM) Fentanyl Interp [Negative] Negative (07/12/19 4:55 PM) U THC Scr [Negative] Positive *ABN* (07/12/19 4:55 PM) U Methadone Scr [Negative] Negative (07/12/19 4:55 PM) Human Chorionic Gonadotropin Qualitative Negative (07/12/19 4:55 PM) RDW-SD 42 *NA* (07/12/19 6:00 PM) Immature Gran % [0.00-2.30 %] 1.80 % (07/12/19 6:00 PM) Immature Gran Absolute 0.28 x10(3)/uL *NA* (07/12/19 6:00 PM) Basophil Absolute [0.00-0.10 x10(3)/uL] 0.03 x10(3)/uL (07/12/19 6:00 PM) Vital Signs Most recent to oldest [Reference Range]: 1 2 Temperature Temporal [36.3-37.8 DegC] 35 .9 DegC *LOW* (07/12/19 4:11 PM) Peripheral Pulse Rate [60-100 bpm] 86 bp m (07/12/19 6:53 PM) 118 bpm *HI* (07/12/19 4:11 PM) Respiratory Rate [14-20 br/min] 16 br/mi n (07/12/19 6:53 PM) 22 br/min *HI* (07/12/19 4:11 PM) Blood Pressure [90-140/60-90 mmHg] 121/8 2mmHg (07/12/19 6:53 PM) 112/80mmHg (07/12/19 4:11 PM) SpO2 [92-100 %] 100 % (07/12/19 6:53 PM) 98 % (07/12/19 4:11 PM) Height/Length Estimated 168.000 cm (07/12/19 4:11 PM) Height/Length Dosing 168.000 cm (07/12/19 4:14 PM) Weight Estimated 52.400 kg (07/12/19 4:11 PM) Weight Dosing 52.400 kg (07/12/19 4:14 PM) Social History Social History Type Response Smoking Status 5-9 cigarettes (betw een 1/4 to 1/2 pack)/day in last 30 days entered on: 07/10/19 Sex Female 1did not smoke while
--- OUTSIDE RECORDS SUMMARY | 2023-05-12 16:47 | XMS_ITS | Continuity of Care Document ---
Author Name Unknown Organization [facility] Address [address] [place] [id number]- Care Team Providers Care Locomotive Firer Name Role Phone MYA LAWSON Primary Care Physician [phone] Encounter BVT Date(s): 09/25/21 - 09/25/[address] [address]- [place] [phone] Discharge Disposition: Home or Self Care Attending Physician: JUAQUIN SHERIDAN Admitting Physician: JUAQUIN SHERIDAN Allergies, Adverse Reactions, Alerts Substance Reaction Severity Status poison kriss Active amitriptyline Active Assessment and Plan Extracted from: Title:General medical Author:Xenia SHERIDAN Date:09/25/21 History of Present Illness Patient presents with a chief complaint of self-mutilation. She cut her left forearm 4 times with scissors. She states she also hit her head several times the side of the bathtub. She states that initially she wanted to kill herself but right after she did it she was remorseful and felt she did more to get attention from people. She states she has been depressed all her life but more so since her child was taken from her custody about 9 months ago. She states that she often thinks of suicide but really wants to live. She has a fianc?? who is with her tonight. She states that she has started care with multiple psychiatrist and therapist but they have all left the area. Currently she is taking only clonazepam for anxiety. She has a history of interstitial cystitis but has not had any problems with that in over 3 years. She takes no medication for that condition. Other than her lacerations and a migraine headache she has no medical issues tonight. Review of Systems Additional review of systems information: All other systems reviewed and otherwise negative, All systems reviewed as documented in chart. Health Status Allergies: Allergic Reactions (Selected) Severity Not Documented Amitriptyline- No reactions were documented. Poison kriss- No reactions were documented.. Medications: (Selected) Inpatient Medications Ordered Normal Saline 1,000 mL: 999 mL/hr, IV acetaminophen: 975 mg = 3 tab(s), Oral, Once Prescriptions Prescribed 10 FR Cure Catheter [...] History Medical history: Resolved Pelvic inflammatory disease ([id number]): Resolved on 09/09/2016 at 20 years. Ruptured ovarian cyst ([id number]): Resolved on 09/09/2016 at 20 years. 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 Surgical history: None (SNOMED CT [id number]).. Family history: CA - Breast cancer Grandmother (Paternal) COPD Father High blood pressure Father Alcohol abuse Mother Father Brother Heart attack Brother Comments: 09/09/2016 15:18 INDIAT - Tracie Burris MA x 2 drug related Depression Other Relationship (AUNT) Comments: 09/09/2016 15:18 KESHA - Tracie Burris MA and others on father's side of family Skin cancer Grandmother (Paternal) Atrial fibrillation Father Grandfather (Paternal) Other Relationship Diabetes Father . Social history: Social & Psychosocial History Social History Alcohol Current, Liquor, Daily Never, 1-2 times per month Past, Stopped [...] . Physical Examination Vital Signs Vital Signs 09/25/2021 1:10 EDT Temperature Temporal Artery 37.1 DegC Peripheral Pulse Rate 123 bpm HI Respiratory Rate 20 br/min Systolic Blood Pressure 143 mmHg HI Diastolic Blood Pressure 104 mmHg HI SpO2 98 % . Measurements 09/25/2021 1:21 EDT Height/Length Dosing 165.000 cm Weight Dosing 81.500 kg 09/25/2021 1:10 EDT Height/Length Estimated 165.000 cm Weight Estimated 81.500 kg . Basic Oxygen Information 09/25/2021 1:10 EDT Oxygen Therapy Room air . General: Alert, moderate distress, Tearful. Skin: Warm, dry, pink, no rash, On the volar side of the left forearm are 4 horizontal lacerations to the most proximal of which is 6 cm in length, the one distal to that is 4 cm, and the 2 distal to that are each 2 cm. Bleeding is controlled.. Head: Normocephalic, atraumatic. Neck: Supple. Eye: Extraocular movements are intact, normal conjunctiva. Ears, nose, mouth and throat: Oral mucosa moist, no pharyngeal erythema or exudate. Cardiovascular: Regular rate and rhythm, No murmur, Normal peripheral perfusion, No edema. Respiratory: Lungs are clear to auscultation, respirations are non-labored, breath sounds are equal. Gastrointestinal: Soft, Nontender, Non distended, Normal bowel sounds. Back: Normal range of motion. Musculoskeletal: Normal ROM, no deformity. Neurological: Alert and oriented to person, place, time, and situation, No focal neurological deficit observed. Psychiatric: Cooperative, appropriate mood & affect, normal judgment. Medical Decision Making Differential Diagnosis: Self-inflicted lacerations, depression, suicidal thoughts, migraine headache, tension headache. Documents reviewed: Emergency department nurses' notes, emergency department records, prior records. Results review: Lab results : Lab View 09/25/2021 1:50 EDT WBC 7.0 x10(3)/uL RBC 4.24 x10(6)/uL Hgb 14.3 gm/dL Hct 40.0 % MCV 94.3 fL MCH 33.7 pg HI MCHC 35.8 gm/dL RDW-CV 12.2 % Platelet 286 x10(3)/uL MPV 10.8 fL Neutro Auto 60.9 % Lymph Auto 29.5 % [place] Auto 7.7 % Eos Auto 0.9 % Basophil Auto 0.6 % NRBC Auto Pct 0.00 % Neutro Absolute 4.25 x10(3)/uL Lymph Absolute 2.06 x10(3)/uL [place] Absolute 0.54 x10(3)/uL HI Eos Absolute 0.06 x10(3)/uL NRBC Absolute 0.00 x10(3)/uL Basophil Absolute 0.04 x10(3)/uL Immature Gran % 0.40 % Immature Gran Absolute 0.03 x10(3)/uL NA UA Color YELLOW UA Clarity CLEAR UA Spec Grav <=1.005 UA Bili NEGATIVE UA pH 6.0 UA Urobilinogen 0.2 EU/dL UA Blood NEGATIVE UA Glucose NEGATIVE UA Ketones NEGATIVE UA Protein NEGATIVE UA Nitrite NEGATIVE UA Leuk Est NEGATIVE Urine Culture? No Micro? Not Indicated Sodium Lvl 139 mmol/L Potassium Lvl 3.5 mmol/L Chloride 101 mmol/L CO2 23 mmol/L AGAP 18.5 mmol/L HI BUN 8 mg/dL Creatinine 0.59 mg/dL GFR NonAfrican Swiss 125 mL/min/1.73 m2 Glucose Lvl 100 mg/dL Calcium Lvl 9.6 mg/dL Phosphorus 3.9 mg/dL Total Protein 7.6 gm/dL Albumin Lvl 4.80 gm/dL Alk Phos 80 IntUnit/L ALT 39 IntUnit/L HI AST 33 IntUnit/L HI Bili Total 0.2 mg/dL Osmolality 276.0 mOsm/kg Magnesium 2.00 mg/dL HCG Qualitative Serum Negative TSH 6.140 uIU/mL HI Acetaminoph Lvl <5.0 ug/mL LOW Ethanol Lvl 156.2 mg/dL HI ETOH% 0.15 % NA U Amph Scr Negative U Jessica Scr Negative U Benzodia Scr Negative U Buprenorphine Scr Positive U Cocaine Scr Negative U mAMP Scr Negative U Methadone Scr Negative U Opiate Scr Negative U OXY Scr Negative U PCP Scr Negative U PPX Scr Negative U TCA Scr Negative U THC Scr Positive Fentanyl Interp Negative . Reexamination/ Reevaluation Time: 09/25/2021 05:46:00 . Vital signs Basic Oxygen Information 09/25/2021 1:10 EDT Oxygen Therapy Room air Notes: Patient has been evaluated by [facility]. She does not meet EE criteria. She does not wish to go for inpatient care. At this time she states that she intermittently thinks of suicide but denies active suicidality and also denies that her actions tonight or with suicidal intent. She feels safe with her fianc?? and he is willing to take her home and try to assure her safety. [facility] will try to get her hooked up with therapeutic services. Patient states that they are planning to move to [place] in the near future.. Impression and Plan Diagnosis Diagnosis: Depression, suicidal ideation, self-mutilation, headache, multiple lacerations (1 x 9 cm closed with nine 5-0 Prolene sutures, 1 x 4 cm closed with four 5-0 Prolene sutures, 2 x 2 cm, both closed with two 5-0 Prolene sutures. Tetanus booster given. Plan Condition: Improved, Stable. Disposition: Discharged: to home. Patient was given the following educational materials: Managing Depression, Adult, Laceration Care, Adult. Follow up with: [facility] Within 1 to 2 days Follow-up with mental health as advised by the [facility] counselor you saw tonight. Have your stitches removed in 10 days, on September 29. Keep your stitches clean and dry. You can have them removed by your doctor, at the urgent care center or here in the ER. If you develop any signs of infection such as redness, swelling, increased pain or fever see your doctor or return to the ER. If you feel unsafe at any time return to the ER. . Counseled: Patient, Regarding diagnosis, Regarding treatment plan, Patient indicated understanding of instructions. Functional Status 09/25/21 Recent Travel History No recent travel Family Member Travel History No recent t ravel COVID-19 Screening None Immunizations Given and Recorded Vaccine Date Status Refusal Reason Tdap 09/25/21 Given Tdap 09/02/09 Recorded HPV 11/11/13 Recorded HPV 7/8/13 Recorded HPV 5/8/13 Recorded Medications 10 cc Syringe 10 cc Syringe, See Instructions, Use for Preparing Pizarro Compound, # 24 EA, 3 Refill(s), Pharmacy: [facility], Use for Preparing Pizarro Compound, Supply Start Date: 02/22/17 Status: Ordered 10 FR Cure Catheter Silicone Urethral 10 FR Cure Catheter Silicone Urethral, See Instructions, Use for Preparing Pizarro Compound, # 12 EA, 3 Refill(s), Pharmacy: [facility], Use for Preparing Pizarro Compound, Supply Start Date: 04/11/18 Status: Ordered 18 gauge 1 1/2 needle 18 gauge 1 1/2 needle, See Instructions, Use for Preparing Pizarro Compound, # 24 EA, 3 Refill(s),Pharmacy: [facility], Use for Preparing Pizarro Compound, Supply Start Date: 02/22/17 Status: Ordered 60cc Catheter Tip Syringe 60cc Catheter Tip Syringe, See Instructions, Use for Preparing Pizarro Compound, # 12 EA, 3 Refill(s), Pharmacy: [facility], Use for Preparing Pizarro Compound, Supply Start Date: 02/22/17 Status: Ordered clonazePAM 0.5 mg oral tablet mg tab(s), Oral, TID, 0 Refill(s) Start Date: 09/09/16 Status: Ordered Elmiron 100 mg oral capsule 100 mg = 1 cap(s), Oral, TID, # 90 cap(s), 6 Refill(s), Pharmacy: [facility], 1 cap(s) Oral TID Start Date: 04/11/18 Status: Ordered lidocaine 2% injectable solution See Instructions, Use 8cc when preparing Pizarro Compound, # 200 mL, 3 Refill(s), Pharmacy: [facility], Use 8cc when preparing Pizarro Compound Start Date: 02/22/17 Status: Ordered Lidocaine Urojet - lidocaine hydrochloride jelly 2% 200mg (20mg/ml) Lidocaine Urojet - lidocaine hydrochloride jelly 2% 200mg (20mg/ml), See Instructions, use as instructed prior to Pizarro installation, # 25 EA, 0 Refill(s), Pharmacy: [facility] [address] [facility], use as instructed [...] q6hr, # 12 supp, 0 Refill(s), [facility] [address] [facility], 1 supp Per rectum q6hr, 165, cm, 11/23/20 12:19:00 EDT, Height/Length Dosing, 81.65, kg, 11/23/20 12:19:00 EDT, Weight Dosing Start Date: 11/23/20 Status: Ordered promethazine 25 mg oral tablet 25 mg = 1 tab(s), Oral, q6hr, # 12 tab(s), 0 Refill(s), [facility] [address] [facility], 1 tab(s) Oral q6hr, 165, cm, 11/23/20 12:19:00 EDT, Height/Length Dosing, 81.65, kg, 11/23/20 12:19:00EDT, Weight Dosing Start Date: 11/23/20 Status: Ordered propranolol 60 mg oral capsule, extended release 60 mg = 1 cap(s), Oral, HS, # 90 cap(s), 1 Refill(s), Pharmacy: [facility] [facility], 1 cap(s) Oral [...] period., # 9 tab(s), 1 Refill(s), [facility]: [facility] [facility] [facility], 1 tab(s) Oral Daily,Instr:Brandon... Start Date: 05/01/21 Status: Ordered sodium bicarbonate 8.4% intravenous solution See Instructions, Use 4 cc when preparing Pizarro Compound, # 50 mL, 3 Refill(s), Pharmacy: [facility], Use 4 cc when preparing Pizarro Compound Start Date: 02/22/17 Status: Ordered Sterile Specimen Cup Sterile Specimen Cup, See Instructions, Use for Preparing Pizarro Compound, # 12 EA, 3 Refill(s), Pharmacy: [facility], Use for Preparing Pizarro Compound, Supply Start Date: 02/22/17 Status: Ordered sterile water irrigation solution See Instructions, Use 18 cc when preparing Pizarro Compound, # 1,000 mL, 6 Refill(s), Pharmacy: [facility], Use 18 cc when preparing Pizarro Compound Start Date: 02/22/17 Status: Ordered Mental Status 09/25/21 Level of Consciousness Alert Problem List Condition [...] None Completed Results Laboratory List Name Date Acetaminophen Level 09/25/21 Automated Differential Standard 09/25/21 CBC w/Diff Standard 09/25/21 Comprehensive Metabolic Panel Standard ( CMP Standard) 09/25/21 Ethanol Level2 (Alcohol Level) 09/25/21 Fentanyl Level 09/25/21 Magnesium Level 09/25/21 Phosphorus Level 09/25/21 Test Serum Standard 09/25/21 TSH 09/25/21 Urinalysis with Culture, if indicated [facility] 09/25/21 Urine Drug Screen Standard 09/25/21 Most recent to oldest [Reference Range]: 1 Urine Culture? No (09/25/21 1:50 AM) ETOH% 0.15 % *NA* (09/25/21 1:50 AM) U Buprenorphine Scr [Negative] Positive *ABN* (09/25/21 1:50 AM) NRBC Auto Pct [0.00-0.20 %] 0.00 % (09/25/21 1:50 AM) Creatinine [0.50-0.90 mg/dL] 0.59 mg/dL (09/25/21 1:50 AM) U Benzodia Scr [Negative] Negative (09/25/21 1:50 AM) UA Bili [NEGATIVE] NEGATIVE *NA* (09/25/21 1:50 AM) UA Blood [NEGATIVE] NEGATIVE (09/25/21 1:50 AM) U Cocaine Scr [Negative] Negative (09/25/21 1:50 AM) UA Color YELLOW *NA* (09/25/21 1:50 AM) UA Glucose [Negative] NEGATIVE *NA* (09/25/21 1:50 AM) UA Ketones [NEGATIVE] NEGATIVE *NA* (09/25/21 1:50 AM) UA Leuk Est [NEGATIVE] NEGATIVE (09/25/21 1:50 AM) UA Nitrite [NEGATIVE] NEGATIVE (09/25/21 1:50 AM) U Opiate Scr [Negative] Negative (09/25/21 1:50 AM) U PCP Scr [Negative] Negative (09/25/21 1:50 AM) UA Protein [NEGATIVE] NEGATIVE (09/25/21 1:50 AM) UA Urobilinogen [<1.0 mg/dL] 0.2 EU/dL (09/25/21 1:50 AM) U Amph Scr [Negative] Negative (09/25/21 1:50 AM) U Jessica Scr [Negative] Negative (09/25/21 1:50 AM) AGAP [10.0-18.0 mmol/L] 18.5 mmol/L *HI* (09/25/21 1:50 AM) Ethanol Lvl [0.0-10.0 mg/dL] 156.2 mg/dL *HI* (09/25/21 1:50 AM) Glucose Lvl [70-100 mg/dL] 100 mg/dL (09/25/21 1:50 AM) Hct [34.1-44.9 %] 40.0 % (09/25/21 1:50 AM) Hgb [11.5-15.7 gm/dL] 14.3 gm/dL (09/25/21 1:50 AM) Lymph Auto [15.0-45.0 %] 29.5 % (09/25/21 1:50 AM) Magnesium [1.60-2.60 mg/dL] 2.00 mg/dL (09/25/21 1:50 AM) MCH [25.6-32.2 pg] 33.7 pg *HI* (09/25/21 1:50 AM) MCHC [32.3-36.5 gm/dL] 35.8 gm/dL (09/25/21 1:50 AM) MCV [79.4-94.8 fL] 94.3 fL (09/25/21 1:50 AM) [place] Auto [4.0-14.0 %] 7.7 % (09/25/21 1:50 AM) MPV [9.4-12.4 fL] 10.8 fL (09/25/21 1:50 AM) Neutro Auto [50.0-75.0 %] 60.9 % (09/25/21 1:50 AM) Osmolality [268.0-291.0 mOsm/kg] 276.0 m Osm/kg (09/25/21 1:50 AM) Phosphorus [2.5-4.5 mg/dL] 3.9 mg/dL (09/25/21 1:50 AM) Platelet [150-400 x10(3)/uL] 286 x10(3)/ uL (09/25/21 1:50 AM) RBC [3.93-5.22 x10(6)/uL] 4.24 x10(6)/uL (09/25/21 1:50 AM) Sodium Lvl [136-145 mmol/L] 139 mmol/L (09/25/21 1:50 AM) Total Protein [6.6-8.7 gm/dL] 7.6 gm/dL (09/25/21 1:50 AM) TSH [0.270-4.200 uIU/mL] 6.140 uIU/mL *HI* (09/25/21 1:50 AM) UA pH [4.6-8.0] 6.0 (09/25/21 1:50 AM) Acetaminoph Lvl [10.0-30.0 ug/mL] <5.0 u g/mL *LOW* (09/25/21 1:50 AM) Albumin Lvl [3.50-5.20 gm/dL] 4.80 gm/dL (09/25/21 1:50 AM) Alk Phos [35-105 IntUnit/L] 80 IntUnit/L (09/25/21 1:50 AM) ALT [0-33 IntUnit/L] 39 IntUnit/L *HI* (09/25/21 1:50 AM) AST [0-32 IntUnit/L] 33 IntUnit/L *HI* (09/25/21 1:50 AM) Basophil Auto [0.0-2.0 %] 0.6 % (09/25/21 1:50 AM) Bili Total [0.0-1.3 mg/dL] 0.2 mg/dL (09/25/21 1:50 AM) CO2 [22-29 mmol/L] 23 mmol/L (09/25/21 1:50 AM) Eos Auto [0.0-8.0 %] 0.9 % (09/25/21 1:50 AM) UA Spec Grav [1.000-1.035] <=1.005 (09/25/21 1:50 AM) WBC [4.0-10.0 x10(3)/uL] 7.0 x10(3)/uL (09/25/21 1:50 AM) BUN [6-23 mg/dL] 8 mg/dL (09/25/21 1:50 AM) Calcium Lvl [8.6-10.2 mg/dL] 9.6 mg/dL (09/25/21 1:50 AM) Chloride [98-107 mmol/L] 101 mmol/L (09/25/21 1:50 AM) Potassium Lvl [3.5-5.1 mmol/L] 3.5 mmol/ L (09/25/21 1:50 AM) Micro? [Not Indicated] Not Indicated (09/25/21 1:50 AM) Lymph Absolute [1.20-3.70 x10(3)/uL] 2.0 6 x10(3)/uL (09/25/21 1:50 AM) [place] Absolute [0.20-0.40 x10(3)/uL] 0.54 x10(3)/uL *HI* (09/25/21 1:50 AM) Eos Absolute [0.04-0.54 x10(3)/uL] 0.06 x10(3)/uL (09/25/21 1:50 AM) NRBC Absolute [0.00-0.01 x10(3)/uL] 0.00 x10(3)/uL (09/25/21 1:50 AM) UA Clarity CLEAR *NA* (09/25/21 1:50 AM) U TCA Scr [Negative] Negative (09/25/21 1:50 AM) Neutro Absolute [1.56-6.13 x10(3)/uL] 4. 25 x10(3)/uL (09/25/21 1:50 AM) RDW-CV [11.7-14.4 %] 12.2 % (09/25/21 1:50 AM) GFR NonAfrican Swiss [>=60 mL/min/1.7 3 m2] 125 mL/min/1.73 m2 (09/25/21 1:50 AM) U mAMP Scr [Negative] Negative (09/25/21 1:50 AM) U OXY Scr [Negative] Negative (09/25/21 1:50 AM) U PPX Scr [Negative] Negative (09/25/21 1:50 AM) Fentanyl Interp [Negative] Negative (09/25/21 1:50 AM) U THC Scr [Negative] Positive *ABN* (09/25/21 1:50 AM) U Methadone Scr [Negative] Negative (09/25/21 1:50 AM) Immature Gran % [0.00-2.30 %] 0.40 % (09/25/21 1:50 AM) Immature Gran Absolute 0.03 x10(3)/uL *NA* (09/25/21 1:50 AM) HCG Qualitative Serum [Negative] Negativ e (09/25/21 1:50 AM) Basophil Absolute [0.00-0.10 x10(3)/uL] 0.04 x10(3)/uL (09/25/21 1:50 AM) Vital Signs Most recent to oldest [Reference Range]: 1 2 Temperature Temporal Artery [36.3-37.8 D egC] 37.1 DegC (09/25/21 1:10 AM) Peripheral Pulse Rate [60-100 bpm] 89 bp m (09/25/21 5:40 AM) 123 bpm *HI* (09/25/21 1:10 AM) Respiratory Rate [14-20 br/min] 16 br/mi n (09/25/21 5:40 AM) 20 br/min (09/25/21 1:10 AM) Blood Pressure [90-140/60-90 mmHg] 138/1 02mmHg (09/25/21 5:40 AM) 143/104mmHg *HI* (09/25/21 1:10 AM) Mean Arterial Pressure, Cuff [65-100 mmH g] 114 mmHg *HI* (09/25/21 5:40 AM) Mean Arterial Pressure Cuff-Monitor 112 mmHg (09/25/21 5:40 AM) SpO2 [92-100 %] 98 % (09/25/21 1:10 AM) Height/Length Estimated 165.000 cm (09/25/21 1:10 AM) Height/Length Dosing 165.000 cm (09/25/21 1:21 AM) Weight Estimated 81.500 kg (09/25/21 1:10 AM) Weight Dosing 81.500 kg (09/25/21 1:21 AM) Social History Social History Type Response Smoking Status 5-9 cigarettes (betw een 04/11 to 1/2 pack)/day in last 30 days entered on: 05/01/21 Sex Female 1did not smoke while Hospital Discharge Instructions Patient Education 09/25/2021 05:51:34 Laceration Care, Adult Laceration Care, Adult A laceration is a [...] laceration heal better, and may prevent scarring. How to care for your laceration Wash your hands with soap and water before touching your wound or changing your bandage (dressing).If soap and water are not available, use hand card feeder. Keep the wound clean and dry. If you were given a dressing, you should change it at least once a day, or as told by your health care provider. You should also change it if it becomes wet or dirty. If sutures or penny were used: ??? Keep the wound completely dry for the first 24 hours, or as told by your health care provider. After that time, you may shower or bathe. However, make sure that the wound is not soaked in water until after the sutures or penny have been removed. ??? Clean the wound once each day, or as told by your health care provider: ??? Wash the wound with soap and water. ??? Rinse the wound with water to remove all soap. ??? Pat the wound dry with a clean towel. Do not rub the wound. ??? After cleaning the wound, apply a thin layer of antibiotic ointment as told by your health careprovider. This will help prevent infection and keep the dressing from sticking to the wound. ??? Have the sutures or penny removed as told by your health care provider. If skin adhesive strips were used: ??? Do not get the skin adhesive strips wet. You may shower or bathe, but be careful to keep the wound dry. ??? If the wound gets wet, pat it dry with a clean towel. Do not rub the wound. ??? Skin adhesive strips fall off on their own. You may trim the strips as the wound heals. Do not remove skin adhesive strips that are still stuck to the wound. They will fall off in time. If skin glue was used: ??? Try to keep the wound dry, but you may briefly wet it in the shower or bath. Do not soak the wound in water, such as by swimming. ??? After you have showered or bathed, gently pat the wound dry with a clean towel. Do not rub the wound. ??? Do not do any activities that will make you sweat heavily until the skin glue has fallen off onits own. ??? Do not apply liquid, cream, or ointment medicine to the wound while the skin glue is in place. Using those may loosen the film before the wound has healed. ??? If a dressing is placed over the wound, be careful not to apply tape directly over the skin glue. Doing that may cause the glue to be pulled off before the wound has healed. ??? Do not pick at the glue. Skin glue usually remains in place for 5???10 days and then falls off the skin. General instructions ??? Take [id number] and prescription medicines only as told by your health care provider. ??? If you were prescribed an antibiotic medicine or ointment, take or apply it as told by your health care provider. Do not stop using it even if your condition improves. ??? Do not scratch or pick at the wound. ??? Check your wound every day for signs of infection. Watch for: ??? Redness, swelling, or pain. ??? Fluid, blood, or pus. ??? Raise (elevate) the injured area above the level of your heart while you are sitting or lying down for the first 24???48 hours after the laceration is repaired. ??? If directed, put ice on the affected area: ??? Put ice in a plastic bag. ??? Place a towel between your skin and the bag. ??? Leave the ice on for 20 minutes, 2???3 times a day. ??? Keep all follow-up visits as told by your health care provider. This is important. Contact a health care provider if: ??? You received a tetanus shot and you have swelling, severe pain, redness, or bleeding at the injection site. ??? You have a fever. ??? A wound that was closed breaks open. ??? You notice a bad smell coming from your wound or your dressing. ??? You notice something coming out of the wound, such as wood or glass. ??? Your pain is not controlled with medicine. ??? You have increased redness, swelling, or pain at the site of your wound. ??? You have fluid, blood, or pus coming from your wound. ??? You need to change the dressing often due to fluid, blood, or pus that is draining from the wound. ??? You develop a new rash. ??? You develop numbness around the wound. Get help right away if: ??? You develop severe swelling around the wound. ??? Your pain suddenly increases and is severe. ??? You develop painful lumps near the wound or on skin anywhere else on your body. ??? You have a red streak going away from your wound. ??? The wound is on your hand or foot and you cannot properly move a finger [...] infection, helps the laceration heal better, and prevents scarring. This information is not intended to replace advice given to you by your health care provider. Make sure you discuss any questions you have with your health care provider. Document Revised: 05/23/2018 Document Reviewed: 04/14/2018 [employer] Patient Education ?? 2020 [employer] 09/25/2021 05:51:34 Managing Depression, Adult Managing Depression, Adult Depression is a mental health condition that affects your thoughts, feelings, and actions. Being diagnosed with depression can bring you relief if you did not know why you have felt or behaved a certain way. It could also leave you feeling overwhelmed with uncertainty about your future. Preparing yourself to manage your symptoms can help you feel more positive about your future. How to manage lifestyle changes Managing stress Stress is your body's reaction to life changes and events, both good and bad. Stress can add to your feelings of depression. Learning to manage your stress can help lessen your feelings of depression. Try some of the following approaches to reducing your stress (stress reduction techniques): ??? Listen to music that you enjoy and that inspires you. ??? Try using a meditation richie or take a meditation class. ??? Develop a practice that helps you connect with your spiritual self. Walk in nature, pray, or goto a place of orthodoxy. ??? Do some deep breathing. To do this, inhale slowly through your nose. Pause at the top of your inhale for a few seconds and then exhale slowly, letting your muscles relax. ??? Practice yoga to help relax and work your muscles. Choose a stress reduction technique that suits your lifestyle and personality. These techniques take time and practice to develop. Set aside 5???15 minutes a day to do them. Therapists can offer training in these techniques. Other things you can do to manage stress include: ??? Keeping a stress diary. ??? Knowing your limits and saying no when you think something is too much. ??? Paying attention to how you react to certain situations. You may not be able to control everything, but you can change your reaction. ??? Adding humor to your life by watching funny films or TV shows. ??? Making time for activities that you enjoy and that relax you. Medicines Medicines, such as antidepressants, are often a part of treatment for depression. ??? Talk with your pharmacist or health care provider about all the medicines, supplements, and herbal products that you take, their possible side effects, and what medicines and other products are safe to take together. ??? Make sure to report any side effects you may have to your health care provider. Relationships Your health care provider may suggest family therapy, couples therapy, or individual therapy as part of your treatment. How to recognize changes Everyone responds differently to treatment for depression. As you recover from depression, you may start to: ??? Have more interest in doing activities. ??? Feel less hopeless. ??? Have more energy. ??? Overeat less often, or have a better appetite. ??? Have better mental focus. It is important to recognize if your depression is not getting better or is getting worse. The symptoms you had in the beginning may return, such as: ??? Tiredness (fatigue) or low energy. ??? Eating too much or too little. ??? Sleeping too much or too little. ??? Feeling restless, agitated, or hopeless. ??? Trouble focusing or making decisions. ??? Unexplained physical complaints. ??? Feeling irritable, angry, or aggressive. If you or your family members notice these symptoms coming back, let your health care provider knowright away. Follow these instructions at home: Activity ??? Try to get some form of exercise each day, such as walking, biking, swimming, or lifting weights. ??? Practice stress reduction techniques. ??? Engage your mind by taking a class or doing some volunteer work. Lifestyle ??? Get the right amount and quality of sleep. ??? Cut down on using caffeine, tobacco, alcohol, and other potentially harmful substances. ??? Eat a healthy diet that includes plenty of vegetables, fruits, whole grains, low-fat dairy products, and lean protein. Do not eat a lot of foods that are high in solid fats, added sugars, or salt(sodium). General instructions ??? Take rhio-doy-wwmxyko and prescription medicines only as told by your health care provider. ??? Keep all follow-up visits as told by your health care provider. This is important. Where to find support Talking to others Friends and family members can be sources of support and guidance. Talk to trusted friends or family members about your condition. Explain your symptoms to them, and let them know that you are working with a health care provider to treat your depression. Tell friends and family members how they also can be helpful. Finances ??? Find appropriate mental health providers that fit with your financial situation. ??? Talk with your health care provider about options to get reduced prices on your medicines. Where to find more information You can find support in your area from: ??? Anxiety and Depression Association of [place] (ADAA): www.adaa.org ??? Mental Health [place]: www.mentalhealthamerica.net ??? National [place] on Mental Illness: www.makayla.org Contact a health care provider if: ??? You stop taking your antidepressant medicines, and you have any of these symptoms: ??? Nausea. ??? Headache. ??? Light-headedness. ??? Chills and body aches. ??? Not being able to sleep (insomnia). ??? You or your friends and family think your depression is getting worse. Get help right away if: ??? You have thoughts of hurting yourself or others. If you ever feel like you may hurt yourself or others, or have thoughts about taking your own life,get help right away. Go to your nearest emergency department or: ??? Call your local emergency services (911 in the [place] ??? Call a suicide crisis helpline, such as the National Suicide Prevention Lifeline at . This is open 24 hours a day in the [place] ??? Text the Crisis Text Line at 571251 (in the [place] Summary ??? If you are diagnosed with depression, preparing yourself to manage your symptoms is a good way to feel positive about your future. ??? Work with your health care provider on a management plan that includes stress reduction techniques, medicines (if applicable), therapy, and healthy lifestyle habits. ??? Keep talking with your health care provider about how your treatment is working. ??? If you have thoughts about taking your own life, call a suicide crisis helpline or text a crisis text line. This information is not intended to replace advice given to you by your health care provider. Make sure you discuss any questions you have with your health care provider. Document Revised: 02/03/2020 Document Reviewed: 02/03/2020 [employer] Patient Education ?? 2020 [employer] Follow Up Care 09/25/2021 01:09:58 With:MYA LUNSFORD [facility] Address: [facility] [address] [place] [address] Business (1) When:1 to 2 days Comments:Follow-up with mental health as advised by the HCRS counselor you saw irene. Have your stitches removed in 10 days, on September 29. Keep your stitches clean and dry. You can have them removed by your doctor, at the urgent care center or here in the ER. If you develop any signs of infection such as redness, swelling, increased pain or fever see your doctor or return to the ER. If you feel unsafe at any time return to the ER. Care Team Personnel Name: MYA LAWSON Address: [facility] [address] [place], [place] [address]
--- OUTSIDE RECORDS SUMMARY | 2023-05-12 16:47 | XMS_ITS | Continuity of Care Document ---
Author Name Unknown Organization [facility] Address [address] [place] [address] Care Team Providers Care Professor Of German Name Role Phone MYA LAWSON Primary Care Physician Encounter [facility] Date(s): 05/02/23 - 05/02/23 [facility] [address] [place] [address] [place] [address] Encounter Diagnosis Mass of right knee(Discharge Diagnosis) - 05/02/23 Discharge Disposition: Home Attending Physician: Tacos Chase MD Referring Physician: MYA LAWSON Allergies, Adverse Reactions, Alerts Substance Reaction Severity Status poison kriss Active amitriptyline Active Assessment and Plan Extracted from: Title:Ortho right leg mass Author:Ibis Chase MD Date:05/02/23 1.??Mass of right knee??R22. 41 Orders: XR Tibia +Fibula 2 Views Rt, 05/02/23 7:47:00 EST, Elective, 05/02/23 7:47:00 EST, Reason: right calf cyst, Other cyst of bone, right lower leg, Transport Mode: Ambulatory, ABN Status: Not Required, Rad Type She has a painful mass over the posterior lateral knee that is been enlarging in size and causing more symptoms.?? Given these findings I recommended we obtain an MRI with and without contrast to further characterize the mass.?? Depending on the findings we may need to refer her to orthopedic oncology if it appears concerning for malignancy. ??If it is more benign we likely would talk about??excision.?? For now I recommended continued??conservative treatment as she has been doing. ??I will??see her back after the MRI. ?? This report has been created through the use of voice recognition software. Typographical and content errors may occur with this process. ??All efforts are made to correct such errors, in some cases, errors will persist. ??For this reason, wording in this documentation should be considered in the proper context and not strictly verbatim. ??Please contact the office with any further questions. ?? Future Appointments Future Scheduled Tests Radiology* MRI LE Joint w/ + w/o Contrast Right 05/10/23 Immunizations Given and Recorded Vaccine Date Status Refusal Reason Tdap 09/25/21 Given Tdap 09/02/09 Recorded HPV 11/11/13 Recorded HPV 7/8/ Recorded HPV 58 Recorded Medications clonazePAM 0.5 mg oral tablet [...] Completed Social History Social History Type Response Tobacco Current everyday tob acco user Tobacco Use:. 1/2 ppd per day. Sex Female Primary care Note * Tacos Chase MD: PERFORM Event Display: Office/Clinic Note Authored Date: [id number] JACLYN RAO :1995 Age:27 years Sex:Female Visit Date:05/02/2023 Primary Care Physician: MYA LAWSON Chief Complaint Right leg mass History of Present Illness She is a 27-year-old female who presents today for evaluation of a??right leg mass.?? This been present for about 2 years.?? She notes that it is definitely increased in size over the last couple months and??is becoming more painful and bothersome.?? She stands all day for work and notes that it isdefinitely achy after doing that. ??She will ice it down if it becomes more sore. ??She tried wrapping it with an Rigoberto bandage but that made it worse with the pressure.?? She denies any numbness or tingling.?? No other masses. Physical Exam General: No acute distress. ??Alert and oriented.?? Gait:??Nonantalgic without assistive device Hip: Full pain-free range of motion Right knee: There is a visible mass over the posterior lateral knee just adjacent to the hamstring tendon. ??This feels firm and potentially adherent to the hamstring tendon. ??This??measures about 1cm x 1 cm??from what I am able to palpate. ??This is tender to palpation.?Normal alignment. ??Nontender to palpation over the medial joint line, lateral joint line, and anteriorly over the extensor mechanism. ??Able to fully extend the knee and flex to??135 degrees. ??Stable to varus and valgus stress. ??Stable to anterior and posterior drawer. ??Negative Jarrett. Negative Juan. ??Neurovascularly intact distally. ?? X-ray findings: X-ray images and report were reviewed and independently interpreted by me. ??No acute osseous abnormalities or fractures. ??No visualized masses. Assessment/Plan 1.??Mass of right knee??R22.41 Orders: XR Tibia +Fibula 2 Views Rt, 05/02/23 7:47:00 EST, Elective, 05/02/23 7:47:00 EST, Reason: right calf cyst, Other cyst of bone, right lower leg, Transport Mode: Ambulatory, ABN Status: Not Required, Rad Type She has a painful mass over the posterior lateral knee that is been enlarging in size and causing more symptoms.?? Given these findings I recommended we obtain an MRI with and without contrast to further characterize the mass.?? Depending on the findings we may need to refer her to orthopedic oncology if it appears concerning for malignancy. ??If it is more benign we likely would talk about??excision.?? For now I recommended continued??conservative treatment as she has been doing. ??I will??seeher back after the MRI. ?? This report has been created through the use of voice recognition software. Typographical and content errors may occur with this process. ??All efforts are made to correct such errors, in some cases, errors will persist. ??For this reason, wording in this documentation should be considered in the proper context and not strictly verbatim. ??Please contact the office with any further questions. Problem List/Past Medical History Ongoing Abdominal pain Acute costochondritis Acute UTI Anxiety Asthma Bacteriuria Chronic pain Depression Female pelvic pain Gross hematuria IC (interstitial cystitis) Insomnia Irregular bleeding Overactive bladder Panic disorder without agoraphobia Pneumonia Pyuria Right-sided headache Severe anxiety Substance use disorder Urinary hesitancy Vaginal discharge Historical Cytoxan-induced pulmonary interstitial disease Pelvic inflammatory disease Ruptured ovarian cyst Medications clonazePAM 0.5 mg oral tablet, Oral, TID Allergies amitriptyline poison kriss [Electronically Signed on: 05/02/2023 08:13 EST] Tacos Chase MD, MD [Verified on: 05/02/2023 08:13 EST] Tacos Chase MD, MD Immunization summary report * Vidya Gomez N: PERFORM Event Display: Immunization Record Authored Date: Patient Care team information Care Team Personnel Name: MYA LAWSON Position: [facility] View Only Member Role: Informed Provider Address: Address: [facility] [address] [place], [place] [id number] [place] [address] Care Team Related Persons Name: DENTON CARUSO Address: Home [address] [place], [place] [id number] Name: JULIO REYNA Name: MARTHA POOL Name: MARTHA POOL Address: Home [address] [facility] [id number]
--- OUTSIDE RECORDS SUMMARY | 2023-05-12 16:47 | XMS_ITS | Continuity of Care Document ---
Author Name Unknown Organization [facility] Address [address] [facility] [address] [place] [address]- Care Team Providers Care Lithograph Designer Name Role Phone Tobias Kunz Primary Care Physician Encounter [facility] [id number] Date(s): 08/07/21 - 08/07/21 [facility] [address] [facility] [address] [place] [address]- Encounter Diagnosis KIM (generalized anxiety disorder)(Discharge Diagnosis) - 08/07/21 Grief(Discharge Diagnosis) - 08/07/21 Supraorbital headache(Discharge Diagnosis) - 08/07/21 Discharge Disposition: Home Attending Physician: Tobias Kunz DO Admitting Physician: Tobias Kunz DO Allergies, Adverse Reactions, Alerts Substance Reaction Severity Status amitriptyline Mild Active Assessment and Plan Extracted from: Title:KIM Author:Tobias Kunz DO Date: 08/07/21 1.??KIM (generalized anxiety disorder)??F41.1 We reviewed medication history trials and failures. We will try selegiline patch. She will be on the look out for any adverse effects and will get in touch. Reviewed nonpharmacologic anxiolytic maneuvers, regular sleep and diet.?? 2.??Grief??F43.21 Still grieving the loss of her daughter. 3.??Supraorbital headache??R51.9 Improved with eyeglasses. Orders: selegiline 6 mg/24 hr transdermal film, extended release, = 1 patch(es), TOP, Daily, # 28 patch(es), 5 Refill(s), [facility]: [id number], 1 patch(es) TOP Daily, 170, cm, 08/07/21 11:15:00 EDT, Height/Length Dosing, 88, kg, 08/07/21 11:15:00 EDT, Weight Dosing ?? Medical decision-making??for this visit was of moderate complexity. ?? This note was partially created using brick chimney supervisor software; while this brick chimney supervisor was reviewed, there may be unintended errors. Please contact me with any questions. ? Future Appointments Functional Status 08/07/21 Recent Travel History No recent travel Family Member Travel History No recent t ravkai COVID-19 Screening None Medications clonazePAM 0.5 mg oral tablet = 1 tab(s), Oral, TID, # 21 tab(s), 5 Refill(s), Pharmacy: [id number], 1 tab(s) Oral TID,x7 day(s) Start Date: 07/20/21 Stop Date: 08/31/21 Status: Ordered fluticasone 50 mcg/inh nasal spray 2 spray(s), Nasal, Daily, # 16 gm, 5 Refill(s), Pharmacy: [id number], 2 spray(s)Nasal Daily Start Date: 10/05/20 Status: Ordered selegiline 6 mg/24 hr transdermal film, extended release = 1 patch(es), TOP, Daily, # 28 patch(es), 5 Refill(s), Pharmacy: [id number], 1 patch(es) TOP Daily, 170, cm, 08/07/21 11:15:00 EDT, Height/Length Dosing, 88, kg, 08/07/21 11:15:00EDT, Weight Dosing Start Date: 08/07/21 Status: Ordered Problem List Condition Effective Dates Status Health Status Inform ant Allergic rhinitis(Confirmed) Active KIM (generalized anxiety disorder)(Confirmed) Active Grief(Confirmed) Active Supraorbital headache(Confirmed) Active Insomnia(Confirmed) Active Vital Signs Most recent to oldest [Reference Range]: 1 Temperature Temporal Artery [36.3-37.8 D egC] 36.0 DegC *LOW* (08/07/21 11:15 AM) Peripheral Pulse Rate [60-100 bpm] 116 b pm *HI* (08/07/21 11:15 AM) Blood Pressure [90-140/60-90 mmHg] 122/7 6mmHg (08/07/21 11:15 AM) SpO2 [92-100 %] 100 % (08/07/21 11:15 AM) Height 170 cm (08/07/21 11:15 AM) Height/Length Measured (inches) 66.9 in (08/07/21 11:15 AM) Height/Length Dosing 170 cm (08/07/21 11:15 AM) Weight 88 kg (08/07/21 11:15 AM) Weight Measured (lbs) 194.007 lb (08/07/21 11:15 AM) Weight Dosing 88 kg (08/07/21 11:15 AM) BSA Measured 2.04 m2 (08/07/21 11:15 AM) Body Mass Index 30.45 kg/m2 (08/07/21 11:15 AM) Social History Social History Type Response Smoking Status 10 or more cigarette s (1/2 pack or more)/day in last 30 days entered on: 10/05/20 Sex Care Team Personnel Name: Tobias Kunz DO Address: [address] P: [phone] F:[phone] [place], [place] [id number] [place] [address]
--- OUTSIDE RECORDS SUMMARY | 2023-05-12 16:47 | XMS_ITS | Continuity of Care Document ---
Author Name Unknown Organization [facility] Address [address] [place] [id number] Care Team Providers Care Sales Operations Specialist Name Role Phone MYA LAWSON Primary Care Physician Encounter BVT Date(s): 12/02/22 - 12/03/[address] [id number] [phone] Encounter Diagnosis Verbalizes suicidal thoughts(Discharge Diagnosis) - 12/02/22 Acute depression(Discharge Diagnosis) - 12/02/22 Discharge Disposition: Home or Self Care Attending Physician: GEMA BATES Admitting Physician: GEMA BATES Allergies, Adverse Reactions, Alerts Substance Reaction Severity Status poison kriss Active amitriptyline Active Assessment and Plan Extracted from: Title:Addendum *ED Author:Puneet Cotton Date:12/03 Medical Decision Making 27-year-old female who is awaiting voluntary psychiatric placement for acute worsening of her depression. No behavioral issues during the overnight shift. She has been boarding in the emergency department for 19-1/2 hours. Reexamination/ Reevaluation Time: 12/03/2022 11:34:00 . Vital signs Basic Oxygen Information 12/02/2022 16:25 EDT Oxygen Therapy Room air 12/02/2022 12:17 EDT Oxygen Therapy Room air Notes: The patient is voluntary. He is reevaluated by [facility] and an outpatient safety plan was discussed. [facility] spoke with patient's fianc?? who stated that he will be with the patient and all firearms have been removed. Please see their note for further details.. Impression and Plan Diagnosis Depression Plan Disposition: Discharged: to home. Patient was given the following educational materials: Suicidal Feelings: How to Help Yourself, Depression Screening, Depression Screening, Suicidal Feelings: How to Help Yourself. Follow up with: [facility] Within 1 to 2 days Call for followup appointment; Please follow-up as discussed with [facility] Within 1 to 2 days. Counseled: Patient. Extracted from: Title:Addendum *ED Author:Shelia Kemp MD Miguel Ángel e:12/03/22 Medical Decision Making I received signout on this patient from Dr. Rodas. Patient is a 27-year-old female who is awaiting voluntary psychiatric inpatient placement for acute worsening of her depression. No medical concerns at this time. We will continue to monitor and update as indicated. Reexamination/ Reevaluation Vital signs Basic Oxygen Information12/02/2022 16:25 EDT Oxygen Therapy Room air 12/02/2022 12:17 EDT Oxygen Therapy Room air Extracted from: Title:Addendum *ED Author:Kristopher Rodas Date: 3 Medical Decision Making Assumed care, pt awaiting voluntary psychiatric placement. Of note, security observed abnormal interactions on camera of pt and boyfriend in her room. When nursing entered the room to make sure pt was ok, it became apparent that the pt and her boyfriend had been standing in the room having sexual intercourse. They were advised that this was inappropriate and security advised pt's boyfriend he would need to depart which he did without incident. Extracted from: Title:General Medical Problem *ED Author:GEMA BATES Date:12/02/22 History of Present Illness Additional history: A 27-year-old female presents to the emergency care center with a chief complaint of intoxicated head trauma, suicidal ideation, looking for inpatient hospitalization, the began today. The patient was at a wedding last night. She drank too much and fell getting a black eye. She has some cervical spine tenderness. She additionally has some low back pain from a couple of days ago. The patient states that she woke up today and took a handful of Klonopin and then reached for a firearm. The patient's boyfriend stopped the patient from her actions, removing the weapon and encouraging her to come here. The patient states that she is no longer suicidal but is depressed and is looking for inpatient hospitalization as she has attempted in the past. The patient complains of a sharp pain in her upper neck as well as soreness around her left eye, this all occurred last evening. A couple of days ago, the patient developed some back pain with intercourse that has been significant and she reports that it is midline in her lumbar area. The patient is not having other symptoms such as vomiting, confusion, fever, chills. She is calm and cooperative on arrival.. Review of Systems Constitutional symptoms: Negative except [...] History Medical history: Resolved Pelvic inflammatory disease ([id number]): Resolved on 09/09/2016 at 20 years. Ruptured ovarian cyst ([id number]): Resolved on 09/09/2016 at 20 years. 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 Surgical history: None ([id number]).. Family history: CA - Breast cancer Grandmother (Paternal) COPD Father High blood pressure Father Alcohol abuse Mother Father Brother Heart attack Brother Comments: 09/09/2016 15:18 EDT - Tracie Burris MA x 2 drug related Depression Other Relationship (AUNT) Comments: 09/09/2016 15:18 INDIAT - Tracie Burris MA and others on [...] . Physical Examination Vital Signs Vital Signs 12/02/2022 12:17 EDT Temperature Temporal Artery 36.6 DegC Peripheral Pulse Rate 115 bpm HI Respiratory Rate 18 br/min Systolic Blood Pressure 122 mmHg Diastolic Blood Pressure 68 mmHg SpO2 98 % . Measurements 12/02/2022 12:25 EDT Weight Dosing 81.600 kg 12/02/2022 12:25 EDT Height/Length Dosing 170.000 cm 12/02/2022 12:17 EDT Height/Length Estimated 170.000 cm Weight Estimated 81.600 kg . Basic Oxygen Information 12/02/2022 12:17 EDT Oxygen Therapy Room air . General: Alert, no acute distress. Skin: Warm, dry, pink, intact. Head: Normocephalic, atraumatic. Neck: Supple, trachea midline, Tenderness at C1 and 2, midline. Eye: Extraocular movements are intact, normal conjunctiva. Ears, nose, mouth and throat: Oral mucosa moist. Cardiovascular: Regular rate and rhythm, No murmur, Normal peripheral perfusion, No edema. Respiratory: Lungs are clear to auscultation, respirations are non-labored, breath sounds are equal, Symmetrical chest wall expansion. Back: Cervical spine is tender, see above, thoracic spine is nontender. Lumbar spine is tender at L1 and L2, midline, no crepitus, mild step-off. Musculoskeletal: Normal ROM, normal strength, no tenderness, no swelling, no deformity. Neurological: Alert and oriented to person, place, time, and situation, No focal neurological deficit observed, normal sensory observed, normal motor observed, normal speech observed, normal coordination observed. Psychiatric: Cooperative, Mood and affect: Depressed. Medical Decision Making Rationale: Overall depressed appearing 27-year-old female presenting to the emergency care center after attending a wedding last night in which she fell while intoxicated striking her head and injuring her neck. Currently, the patient is experiencing black eye, depression. She woke up and took a handful of Klonopin and then grabbed for a firearm. The patient was stopped and the patient was encouraged to come here. She is cooperative on arrival and looking for inpatient hospitalization. She has a history of attempts in the past. Patient denies but states that she has been trying for the last 8 years to get which has only resulted in miscarriage.. Results review: Lab results : Lab View 12/02/2022 13:01 EDT Human Chorionic Gonadotropin Qualitative Negative 12/02/2022 12:50 EDT WBC 9.4 x10(3)/uL RBC 4.51 x10(6)/uL Hgb 15.3 gm/dL Hct 43.6 % MCV 96.7 fL HI MCH 33.9 pg HI MCHC 35.1 gm/dL RDW-CV 14.1 % Platelet 278 x10(3)/uL MPV 10.2 fL Neutro Auto 67.1 % Lymph Auto 27.5 % [place] Auto 4.2 % Eos Auto 0.3 % Basophil Auto 0.6 % NRBC Auto Pct 0.00 % Neutro Absolute 6.32 x10(3)/uL HI Lymph Absolute 2.59 x10(3)/uL [place] Absolute 0.40 x10(3)/uL Eos Absolute 0.03 x10(3)/uL LOW NRBC Absolute 0.00 x10(3)/uL Basophil Absolute 0.06 x10(3)/uL Immature Gran % 0.30 % Immature Gran Absolute 0.03 x10(3)/uL NA Sodium Lvl 142 mmol/L Potassium Lvl 4.0 mmol/L Chloride 105 mmol/L CO2 26 mmol/L AGAP 15.5 mmol/L BUN 9 mg/dL Creatinine 0.61 mg/dL Glucose Lvl 79 mg/dL Calcium Lvl 9.4 mg/dL Total Protein 7.8 gm/dL Albumin Lvl 5.10 gm/dL Alk Phos 57 IntUnit/L ALT 43 IntUnit/L HI AST 32 IntUnit/L Bili Total 0.3 mg/dL Osmolality 280.7 mOsm/kg eGFR CKD-EPI 126 mL/min/1.73 m2 TSH 1.550 uIU/mL Acetaminoph Lvl <5.0 ug/mL LOW Salicylate Lvl <0.3 mg/dL LOW Ethanol Lvl 179.0 mg/dL HI ETOH% 0.17 % NA 12/02/2022 12:31 EDT UA Color YELLOW UA Clarity CLEAR UA Spec Grav 1.025 UA Bili NEGATIVE UA pH 6.0 UA Urobilinogen 0.2 EU/dL UA Blood NEGATIVE UA Glucose NEGATIVE UA Ketones NEGATIVE UA Protein NEGATIVE UA Nitrite NEGATIVE UA Leuk Est NEGATIVE Urine Culture? No Micro? Not Indicated U Amph Scr Positive U Jessica Scr Negative U Benzodia Scr Negative U Buprenorphine Scr Negative U Cocaine Scr Positive U mAMP Scr Positive U Methadone Scr Negative U Opiate Scr Negative U OXY Scr Negative U PCP Scr Negative U PPX Scr Negative U TCA Scr Negative U THC Scr Positive Fentanyl Interp Negative . Radiology results: X-ray (ST) X-Ray: ?? XR Spine Lumbosacral 2 or 3 Views ?? 12/02/22 14:40:46 EXAMINATION: XR Spine Lumbosacral 2 or 3 Views CLINICAL HISTORY: Midline L-spine tednerness with step off TECHNIQUE: AP and lateral views of the lumbar spine and a lateral coned-down view of the sacrum COMPARISON: 03/01/2015 FINDINGS: No acute fracture or subluxation. Vertebral body heights maintained the disc spaces are preserved. A curvilinear radiopaque object projects over L5 on the AP view but is not visualized on the lateral view. IMPRESSION: No acute fracture or dislocation Thank you for letting us participate in the care of this patient. If you are a health care provider and have any questions regarding this report, please contact the number below. For patients who have questions please contact the health health and social care teacher that requested your imaging first. ?? Signed By: LUDIVINA KC , CT () Computed Tomography: ?? CT Head or Brain w/o Contrast ?? 12/02/22 14:01:15 EXAMINATION: CT Head or Brain w/o Contrast, CT Spine Cervical w/o Contrast CLINICAL HISTORY: Intoxicated head trauma Intoxicated head trauma, midline c-spine tenderness at C1-C2, sharp pain TECHNIQUE: Noncontrast CTs of the head and cervical spine. COMPARISON: CT head 10/01/2015 FINDINGS: CT head: No acute intracranial hemorrhage. No extra-axial fluid collection, mass effect or loss of the frederick-white matter interfaces. The ventricles are normal in caliber. No calvarial fracture or extracalvarial soft tissue swelling. The mastoid air cells and visualized paranasal sinuses are clear. CT cervical spine: Slight reversal of the usual cervical lordosis. No spondylolisthesis. The vertebral bodies and intervertebral disc spaces are normal in height. No fractures or prevertebral soft tissue swelling. The osseous spinal canal is widely patent. IMPRESSION: 1. No acute intracranial hemorrhage or calvarial fracture. 2. No acute fracture or traumatic malalignment in the cervical spine. Thank you for letting us participate in the care of this patient. If you are a health care provider and have any questions regarding this report, please contact the number below. For patients who have questions please contact the health health and social care teacher that requested your imaging first. ?? Signed By: GEMA ABARCA ?? CT Spine Cervical w/o Contrast ?? 12/02/22 14:01:15 EXAMINATION: CT Head or Brain w/o Contrast, CT Spine Cervical w/o Contrast CLINICAL HISTORY: Intoxicated head trauma Intoxicated head trauma, midline c-spine tenderness at C1-C2, sharp pain TECHNIQUE: Noncontrast CTs of the head and cervical spine. COMPARISON: CT head 10/01/2015 FINDINGS: CT head: No acute intracranial hemorrhage. No extra-axial fluid collection, mass effect or loss of the frederick-white matter interfaces. The ventricles are normal in caliber. No calvarial fracture or extracalvarial soft tissue swelling. The mastoid air cells and visualized paranasal sinuses are clear. CT cervical spine: Slight reversal of the usual cervical lordosis. No spondylolisthesis. The vertebral bodies and intervertebral disc spaces are normal in height. No fractures or prevertebral soft tissue swelling. The osseous spinal canal is widely patent. IMPRESSION: 1. No acute intracranial hemorrhage or calvarial fracture. 2. No acute fracture or traumatic malalignment in the cervical spine. Thank you for letting us participate in the care of this patient. If you are a health care provider and have any questions regarding this report, please contact the number below. For patients who have questions please contact the health health and social care teacher that requested your imaging first. ?? Signed By: GEMA ABARCA Impression and Plan Diagnosis Acute depression ([id number] F32.A, Discharge, Medical) Verbalizes suicidal thoughts ([id number] R45.851, Discharge, Medical) Plan Disposition: Patient care transitioned to: Time: 12/02/2022 20:18:00, Kristopher Rodas. Immunizations Given and Recorded Vaccine Date Status Refusal Reason Tdap 09/25/21 Given Tdap 09/02/09 Recorded HPV 11/11/13 Recorded HPV 7/8/13 Recorded HPV 5/8/13 Recorded Medications clonazePAM 0.5 mg oral tablet mg tab(s), Oral, TID, 0 Refill(s) Start Date: 09/09/16 Status: Ordered Mental Status 12/03/22 Level of Consciousness Alert Problem List Condition [...] None Completed Results Laboratory List Name Date Test Urine Standard (Urine Pre gnancy Test Standard) 12/02/22 Acetaminophen Level (Tylenol Level) 12/02 Automated Differential Standard 12/02/22 CBC w/Diff Standard 12/02/22 Comprehensive Metabolic Panel Standard ( CMP Standard) 12/02/22 Ethanol Level2 (Alcohol Level) 12/02/22 Salicylate Level (ASA Level) 12/02/22 TSH Mcpherson 12/02/22 Fentanyl Level 12/02/22 Urinalysis with Culture, if indicated St cerda (UA w Culture if Ind Standard) 12/02/22 Urine Drug Screen Standard 12/02/22 Most recent to oldest [Reference Range]: 1 Urine Culture? No (12/02/22 12:31 PM) ETOH% 0.17 % *NA* (12/02/22 12:50 PM) eGFR CKD-EPI [>=60 mL/min/1.73 m2] 126 m L/min/1.73 m2 (12/02/22 12:50 PM) U Buprenorphine Scr [Negative] Negative (12/02/22 12:31 PM) NRBC Auto Pct [0.00-0.20 %] 0.00 % (12/02/22 12:50 PM) Creatinine [0.50-0.90 mg/dL] 0.61 mg/dL (12/02/22 12:50 PM) U Benzodia Scr [Negative] Negative (12/02/22 12:31 PM) UA Bili [NEGATIVE] NEGATIVE *NA* (12/02/22 12:31 PM) UA Blood [NEGATIVE] NEGATIVE (12/02/22 12:31 PM) U Cocaine Scr [Negative] Positive 1 *ABN* (12/02/22 12:31 PM) UA Color YELLOW *NA* (12/02/22 12:31 PM) UA Glucose [Negative] NEGATIVE *NA* (12/02/22 12:31 PM) UA Ketones [NEGATIVE] NEGATIVE *NA* (12/02/22 12:31 PM) UA Leuk Est [NEGATIVE] NEGATIVE (12/02/22 12:31 PM) UA Nitrite [NEGATIVE] NEGATIVE (12/02/22 12:31 PM) U Opiate Scr [Negative] Negative (12/02/22 12:31 PM) U PCP Scr [Negative] Negative (12/02/22 12:31 PM) UA Protein [NEGATIVE] NEGATIVE (12/02/22 12:31 PM) UA Urobilinogen [<1.0 mg/dL] 0.2 EU/dL (12/02/22 12:31 PM) U Amph Scr [Negative] Positive *ABN* (12/02/22 12:31 PM) U Jessica Scr [Negative] Negative (12/02/22 12:31 PM) AGAP [10.0-18.0 mmol/L] 15.5 mmol/L (12/02/22 12:50 PM) Ethanol Lvl [0.0-10.0 mg/dL] 179.0 mg/dL *HI* (12/02/22 12:50 PM) Glucose Lvl [70-100 mg/dL] 79 mg/dL (12/02/22 12:50 PM) Hct [34.1-44.9 %] 43.6 % (12/02/22 12:50 PM) Hgb [11.5-15.7 gm/dL] 15.3 gm/dL (12/02/22 12:50 PM) Lymph Auto [15.0-45.0 %] 27.5 % (12/02/22 12:50 PM) MCH [25.6-32.2 pg] 33.9 pg *HI* (12/02/22 12:50 PM) MCHC [32.3-36.5 gm/dL] 35.1 gm/dL (12/02/22 12:50 PM) MCV [79.4-94.8 fL] 96.7 fL *HI* (12/02/22 12:50 PM) [place] Auto [4.0-14.0 %] 4.2 % (12/02/22 12:50 PM) MPV [9.4-12.4 fL] 10.2 fL (12/02/22 12:50 PM) Neutro Auto [50.0-75.0 %] 67.1 % (12/02/22 12:50 PM) Osmolality [268.0-291.0 mOsm/kg] 280.7 m Osm/kg (12/02/22 12:50 PM) Platelet [150-400 x10(3)/uL] 278 x10(3)/ uL (12/02/22 12:50 PM) RBC [3.93-5.22 x10(6)/uL] 4.51 x10(6)/uL (12/02/22 12:50 PM) Salicylate Lvl [3.0-10.0 mg/dL] <0.3 mg/ dL *LOW* (12/02/22 12:50 PM) Sodium Lvl [136-145 mmol/L] 142 mmol/L (12/02/22 12:50 PM) Total Protein [6.6-8.7 gm/dL] 7.8 gm/dL (12/02/22 12:50 PM) TSH [0.270-4.200 uIU/mL] 1.550 uIU/mL (12/02/22 12:50 PM) UA pH [4.6-8.0] 6.0 (12/02/22 12:31 PM) Acetaminoph Lvl [10.0-30.0 ug/mL] <5.0 u g/mL *LOW* (12/02/22 12:50 PM) Albumin Lvl [3.50-5.20 gm/dL] 5.10 gm/dL (12/02/22 12:50 PM) Alk Phos [35-105 IntUnit/L] 57 IntUnit/L (12/02/22 12:50 PM) ALT [0-33 IntUnit/L] 43 IntUnit/L *HI* (12/02/22 12:50 PM) AST [0-32 IntUnit/L] 32 IntUnit/L (12/02/22 12:50 PM) Basophil Auto [0.0-2.0 %] 0.6 % (12/02/22 12:50 PM) Bili Total [0.0-1.3 mg/dL] 0.3 mg/dL (12/02/22 12:50 PM) CO2 [22-29 mmol/L] 26 mmol/L (12/02/22 12:50 PM) Eos Auto [0.0-8.0 %] 0.3 % (12/02/22 12:50 PM) UA Spec Grav [1.000-1.035] 1.025 (12/02/22:31 PM) WBC [4.0-10.0 x10(3)/uL] 9.4 x10(3)/uL (12/02/22 12:50 PM) BUN [6-23 mg/dL] 9 mg/dL (12/02/22 12:50 PM) Calcium Lvl [8.6-10.2 mg/dL] 9.4 mg/dL (12/02/22 12:50 PM) Chloride [98-107 mmol/L] 105 mmol/L (12/02/22 12:50 PM) Potassium Lvl [3.5-5.1 mmol/L] 4.0 mmol/ L (12/02/22 12:50 PM) Micro? [Not Indicated] Not Indicated (12/02/22:31 PM) Lymph Absolute [1.20-3.70 x10(3)/uL] 2.5 9 x10(3)/uL (12/02/22 12:50 PM) [place] Absolute [0.20-0.40 x10(3)/uL] 0.40 x10(3)/uL (12/02/22 12:50 PM) Eos Absolute [0.04-0.54 x10(3)/uL] 0.03 x10(3)/uL *LOW* (12/02/22 12:50 PM) NRBC Absolute [0.00-0.01 x10(3)/uL] 0.00 x10(3)/uL (12/02/22 12:50 PM) UA Clarity CLEAR *NA* (12/02/22 12:31 PM) U TCA Scr [Negative] Negative (12/02/22 12:31 PM) Neutro Absolute [1.56-6.13 x10(3)/uL] 6. 32 x10(3)/uL *HI* (12/02/22 12:50 PM) RDW-CV [11.7-14.4 %] 14.1 % (12/02/22 12:50 PM) U mAMP Scr [Negative] Positive *ABN* (12/02/22 12:31 PM) U OXY Scr [Negative] Negative (12/02/22 12:31 PM) U PPX Scr [Negative] Negative (12/02/22 12:31 PM) Fentanyl Interp [Negative] Negative 2 (12/02/22 12:31 PM) U THC Scr [Negative] Positive *ABN* (12/02/22 12:31 PM) U Methadone Scr [Negative] Negative (12/02/22 12:31 PM) Human Chorionic Gonadotropin Qualitative Negative (12/02/22 1:01 PM) Immature Gran % [0.00-2.30 %] 0.30 % (12/02/22 12:50 PM) Immature Gran Absolute 0.03 x10(3)/uL *NA* (12/02/22 12:50 PM) Basophil Absolute [0.00-0.10 x10(3)/uL] 0.06 x10(3)/uL (12/02/22 12:50 PM) 1Interpretive Data: Urine results not confirmed by alternate testing. Screen for medical use only. Cutoffs are listed in parentheses in ng/ml. Amphetamine (500) Barbiturates (200) Buprenorphine (10) Benzodiazepines (150) Cocaine (150) Methamphetamine (500) Methadone (200) Opiate (100) Oxycodone (100) Phencyclidine (25) Propoxyphene (300) Tricyclic Antidepressants (300) Marijuana (50) 2Interpretive Data: Urine results not confirmed by alternate testing. Screen for medical use only. Cutoffs are listed in parentheses in ng/ml. Fentanyl (1.0) Radiology Reports * Exam Date Time Procedure Performing Provider Status 12/02/22 1:44 PM XR Spine Lumbosacral 2 or 3 Views Butl er, Reji; Tushar (Verified) Notes: (XR Spine Lumbosacral 2 or 3 Views) Reason For Exam: Midline L-spine tednerness with step off XR Spine Lumbosacral 2 or 3 Views EXAMINATION: XR Spine Lumbosacral 2 or 3 Views CLINICAL HISTORY: Midline L-spine tednerness with step off TECHNIQUE: AP and lateral views of the lumbar spine and a lateral coned-down view of the sacrum COMPARISON: 03/01/2015 FINDINGS: No acute fracture or subluxation. Vertebral body heights maintained the disc spaces are preserved. A curvilinear radiopaque object projects over L5 on the AP view but is not visualized on the lateral view. IMPRESSION: No acute fracture or dislocation Thank you for letting us participate in the care of this patient. If you are a health care provider and have any questions regarding this report, please contact the number below. For patients who have questions please contact the health health and social care teacher that requested your imaging first. Final Dictated: 12/02/2022 2:40 pm LUDIVINA KC Signed (Electronic Signature): 12/02/2022 2:40 pm Signed by: LUDIVINA KC * Exam Date Time Procedure Performing Provider Status 12/02/22 1:[address] Spine Cervical w/o Contrast Lacey Chisholm (Verified) Notes: (CT Spine Cervical w/o Contrast) Reason For Exam: Intoxicated head trauma, midline c-spine tenderness at C1-C2, sharp pain CT Spine Cervical w/o Contrast EXAMINATION: CT Head or Brain w/o Contrast, CT Spine Cervical w/o Contrast CLINICAL HISTORY: Intoxicated head trauma Intoxicated head trauma, midline c-spine tenderness at C1-C2, sharp pain TECHNIQUE: Noncontrast CTs of the head and cervical spine. COMPARISON: CT head 10/01/2015 FINDINGS: CT head: No acute intracranial hemorrhage. No extra-axial fluid collection, mass effect or loss of the frederick-white matter interfaces. The ventricles are normal in caliber. No calvarial fracture or extracalvarial soft tissue swelling. The mastoid air cells and visualized paranasal sinuses are clear. CT cervical spine: Slight reversal of the usual cervical lordosis. No spondylolisthesis. The vertebral bodies and intervertebral disc spaces are normal in height. No fractures or prevertebral soft tissue swelling. The osseous spinal canal is widely patent. IMPRESSION: 1. No acute intracranial hemorrhage or calvarial fracture. 2. No acute fracture or traumatic malalignment in the cervical spine. Thank you for letting us participate in the care of this patient. If you are a health care provider and have any questions regarding this report, please contact the number below. For patients who have questions please contact the health health and social care teacher that requested your imaging first. Final Dictated: 12/02/2022 2:01 pm GEMA ABARCA Signed (Electronic Signature): 12/02/2022 2:01 pm Signed by: GEMA ABARCA * Exam Date Time Procedure Performing Provider Status 12/02/22 1:[address] Head or Brain w/o Contrast Lacey Hernandez; Auth (Verified) Notes: (CT Head or Brain w/o Contrast) Reason For Exam: Intoxicated head trauma CT Head or Brain w/o Contrast EXAMINATION: CT Head or Brain w/o Contrast, CT Spine Cervical w/o Contrast CLINICAL HISTORY: Intoxicated head trauma Intoxicated head trauma, midline c-spine tenderness at C1-C2, sharp pain TECHNIQUE: Noncontrast CTs of the head and cervical spine. COMPARISON: CT head 10/01/2015 FINDINGS: CT head: No acute intracranial hemorrhage. No extra-axial fluid collection, mass effect or loss of the frederick-white matter interfaces. The ventricles are normal in caliber. No calvarial fracture or extracalvarial soft tissue swelling. The mastoid air cells and visualized paranasal sinuses are clear. CT cervical spine: Slight reversal of the usual cervical lordosis. No spondylolisthesis. The vertebral bodies and intervertebral disc spaces are normal in height. No fractures or prevertebral soft tissue swelling. The osseous spinal canal is widely patent. IMPRESSION: 1. No acute intracranial hemorrhage or calvarial fracture. 2. No acute fracture or traumatic malalignment in the cervical spine. Thank you for letting us participate in the care of this patient. If you are a health care provider and have any questions regarding this report, please contact the number below. For patients who have questions please contact the health health and social care teacher that requested your imaging first. Final Dictated: 12/02/2022 2:01 pm GEMA ABARCA Signed (Electronic Signature): 12/02/2022 2:01 pm Signed by: GEMA ABARCA Vital Signs Most recent to oldest [Reference Range]: 1 2 3 Temperature Temporal Artery [36.3-37.8 DegC] 36.5 DegC (12/03/22 8:08 AM) 36.5 DegC (12/02/22 4:25 PM) 36.6 DegC (12/02/22 12:17 PM) Peripheral Pulse Rate [60-100 bpm] 77 bpm (12/03/22 11:44 AM) 85 bpm (12/03/22 8:08 AM) 105 bpm *HI* (12/02/22 4:25 PM) Respiratory Rate [14-20 br/min] 18 br/min (12/03/22 11:44 AM) 16 br/min (12/03/22 8:08 AM) 18 br/min (12/02/22 4:25 PM) Blood Pressure [90-140/60-90 mmHg] 107/71mmHg (12/03/22 11:44 AM) 115/83mmHg (12/03/22 8:08 AM) 119/79mmHg (12/02/22 4:25 PM) SpO2 [92-100 %] 97 % (12/03/22 11:44 AM) 99 % (12/03/22 8:08 AM) 99 % (12/02/22 4:25 PM) Height/Length Estimated 170.000 cm (12/02/22 12:17 PM) Height/Length Dosing 170.000 cm (12/02/22 12:25 PM) Weight Estimated 81.600 kg (12/03/22 11:44 AM) 81.600 kg (12/02/22 12:17 PM) Weight Dosing 81.600 kg (12/02/22 12:25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
[2023-05-12 16:52] VITALS: PULSE 91; RESP 14; O2SAT 100
== END 2023-05-12 16:52 | disposition home or self-care (01) ==
PROVIDERS: Emergency Provider Nurse Practitioner Family
DX: R55 Syncope and collapse (principal); F43.0 Acute stress reaction; F17.290 Nicotine dependence, other tobacco product, uncomplicated
CPT/HCPCS: 36415; 70496; 70498; 80053; 80307; 81025; 83690; 96360; 99285; 80320; 81003; 81015; 82140; 83605; 83735; 84443; 85025; 85610; 85730; 99284; J3490